=== PATIENT | female | born 1965 ===

== ENCOUNTER 2020-09-20 07:54 | Outpatient (REF) | payer OTHER, SELFPAY ==
[2020-09-20 09:37] LABS: Alanine Aminotransferase 31 U/L (0-31); Albumin Level 4.2 g/dL (3.5-5.0); Alkaline Phosphatase 82 U/L (39-117); Anion Gap 11 (12-20); Aspartate Amino Transferase 26 U/L (5-31); Bilirubin Total 0.9 mg/dL (0.0-1.0); Blood Urea Nitrogen 16 mg/dL (9-16); Calcium 9.3 mg/dL (8.4-10.2); Carbon Dioxide 26 mmol/L (22-29); Chloride 107 mmol/L (96-108); Cholesterol 262 mg/dL; Estimated Glomerular Filt Rate > 60; Glucose Fasting 100 mg/dL (60-99); HDL Cholesterol 46 mg/dL; LDL Cholesterol Calculated 156 mg/dl; Potassium 4.1 mmol/L (3.3-5.1); Sodium 140 mmol/L (135-145); Total Protein 6.9 g/dL (6.5-8.0); Triglycerides 301 mg/dL
[2020-09-27 12:22] LABS: Vitamin D 25-OH, D2 <4 ng/mL; Vitamin D 25-OH, D3 35 ng/mL; Vitamin D 25-OH, Total 35 ng/mL (30-100)
== END 2020-09-20 07:55 | disposition home or self-care (01) ==
LOC: HO.LAB 07:54
PROVIDERS: PCP Internal Medicine; Visit Provider Internal Medicine
DX: I10 Essential (primary) hypertension (principal); E78.5 Hyperlipidemia, unspecified; E55.9 Vitamin D deficiency, unspecified
CPT/HCPCS: 36415; 80053; 80061; 82306

== ENCOUNTER 2021-04-11 07:28 | Outpatient (REF) | payer OTHER, SELFPAY ==
--- NOTE | ~2021-04-11 | MM_ITS ---
EXAMINATION: MM DIAGNOSTIC DIGITAL BREAST TOMOSYNTHESIS, BILATERAL US DIAGNOSTIC ULTRASOUND BREAST, RIGHT CLINICAL INFORMATION: Tender palpable fullness posterior lower inner right breast with associated erythema. No known family history breast cancer. The lifetime risk of breast cancer based on the Tyrer-Cuzick Model is 9%. COMPARISON: Mammography: 12/03/2012 TECHNIQUE: Digital breast tomosynthesis is performed in both the craniocaudal and mediolateral oblique views along with computer-aided detection (CAD). Synthesized 2D images are generated from the tomosynthesis. Additional left MLO view is provided. Ultrasound right breast is targeted to the area of clinical concern posterior inferior medial breast. Patient is able to point to the area of concern at time of imaging. Grayscale imaging and color Doppler are performed without and with harmonics. FINDINGS: There are scattered areas of fibroglandular density (ACR BI-RADS breast composition Category b). Right breast shows no interval mass or architectural abnormality. There is no coarsening of the Kirby's ligaments. Scattered background fibroglandular densities are stable. Calcified nodule mid upper inner right breast noted on remote prior exam 2012 is no longer demonstrated. The axilla is unremarkable. Left breast shows stable intramammary nodes mid and posterior upper outer quadrant. There is no interval mass or architectural abnormality or abnormal calcifications. The axilla is unremarkable. Skin contours are smooth. Ultrasound demonstrates focal irregular hypoechoic lesion in the deep dermis measuring approximately 0.6 x 0.5 x 0.3 cm. There is no subdermal extension. No edema tracking in soft tissue planes. Mild hyperemia areas noted around the intradermal lesion consistent with inflammation. Results are discussed with the patient at time of visit, using an supervisor kennel. Patient should follow-up with her primary care doctor for further management. This exam may serve as baseline for follow-up ultrasound as needed. If clinically indicated, surgical consult may be considered. Results called to office ([facility]) for Dr. Carlos Sheets on 04/11/2021. MM/MM tomosynthesis diagnostic BI IMPRESSION: 1. Right: Intradermal lesion posterior inferior medial breast under 1 cm, likely intradermal abscess or sebaceous cyst with inflammation. 2. Left: No mammographic evidence of malignancy. ASSESSMENT: BI-RADS 3: Probably Benign RECOMMENDATION: 1. Clinical follow up recommended. Patient to call PCP office for further instructions. 2. Follow-up targeted ultrasound or surgical consult if clinically warranted. 3. Otherwise, routine annual screening mammography. This patient's information was entered into a reminder system with a target due date for their next mammogram.
== END 2021-04-11 07:29 | disposition home or self-care (01) ==
LOC: HO.MAMMO 07:28
PROVIDERS: PCP Internal Medicine; Visit Provider Internal Medicine
DX: N63.14 Unspecified lump in the right breast, lower inner quadrant (principal)
CPT/HCPCS: 76642; 77062; 77066

== ENCOUNTER → 2021-05-08 08:18 | Outpatient (BNVA) | payer OTHER, SELFPAY | PROVIDERS: PCP Internal Medicine; Referring Provider Internal Medicine; Visit Provider Surgery | DX: N63.10 Unspecified lump in the right breast, unspecified quadrant (principal) | CPT/HCPCS: 99202 ==

== ENCOUNTER 2021-07-21 07:26 | Outpatient (REF) | payer OTHER, SELFPAY ==
[2021-07-21 07:56] LABS: MANUAL DIFF FLAG NO
[2021-07-21 08:16] LABS: Basophils Percent Auto 0.4 % (0-2); Eosinophils Absolute Auto 0.3 X10*3/uL (0.0-0.4); Eosinophils Percent Auto 3.6 % (0-4); Hematocrit 41.6 % (37.0-47.0); Hemoglobin 13.3 g/dl (12.0-16.0); Imm Gran Abs Auto 0.02 X10*3/uL (0.00-0.03); Imm Gran Pct Auto 0.3 % (0.0-0.4); Lymphocytes Absolute Auto 2.5 X10*3/uL (1.2-4.9); Mean Corpuscular Hemoglobin 27.7 pg (27.0-33.0); Mean Corpuscular Volume 86.5 fL (80.0-98.0); Mean Platelet Volume 10.2 fL (9.4-12.3); Monocytes Absolute Auto 0.5 X10*3/uL (0.1-1.2); Neutrophils Percent Auto 54.7 % (45-73); Platelet Count 210 X10*3/uL (160-400); Red Blood Count 4.81 X10*6/uL (4.20-5.50); Red Cell Distribution Width 13.2 % (11.0-16.0); White Blood Count 7.3 X10*3/uL (4.8-10.8)
[2021-07-21 08:55] LABS: Alanine Aminotransferase 33 U/L (0-31); Albumin Level 4.3 g/dL (3.5-5.0); Alkaline Phosphatase 75 U/L (39-117); Anion Gap 13 (12-20); Aspartate Amino Transferase 34 U/L (5-31); Bilirubin Total 1.1 mg/dL (0.0-1.0); Blood Urea Nitrogen 15 mg/dL (9-16); Calcium 9.7 mg/dL (8.4-10.2); Carbon Dioxide 30 mmol/L (22-29); Chloride 103 mmol/L (96-108); Cholesterol 231 mg/dL; Estimated Glomerular Filt Rate > 60; Glucose Fasting 97 mg/dL (60-99); HDL Cholesterol 46 mg/dL; LDL Cholesterol Calculated 132 mg/dl; Potassium 4.6 mmol/L (3.3-5.1); Sodium 141 mmol/L (135-145); Triglycerides 265 mg/dL
[2021-07-26 19:21] LABS: Vitamin D 25-OH, D2 <4 ng/mL; Vitamin D 25-OH, D3 37 ng/mL; Vitamin D 25-OH, Total 37 ng/mL (30-100)
== END 2021-07-21 07:27 | disposition home or self-care (01) ==
LOC: HO.LAB 07:26
PROVIDERS: PCP Internal Medicine; Visit Provider Internal Medicine
DX: E78.00 Pure hypercholesterolemia, unspecified (principal); E78.5 Hyperlipidemia, unspecified; E55.9 Vitamin D deficiency, unspecified; I10 Essential (primary) hypertension; K59.01 Slow transit constipation
CPT/HCPCS: 36415; 80053; 80061; 82306; 85025

== ENCOUNTER 2022-05-18 15:49 | Outpatient (REF) | payer OTHER, SELFPAY ==
--- NOTE | ~2022-05-18 | MM_ITS ---
EXAMINATION: MM SCREENING DIGITAL BREAST TOMOSYNTHESIS, BILATERAL CLINICAL INFORMATION: Screening. Asymptomatic. The lifetime risk of breast cancer based on the Tyrer-Cuzick Model is 7%. COMPARISON: Mammography: 04/11/2021, 12/03/2012; right breast ultrasound 04/11/2021. TECHNIQUE: Digital breast tomosynthesis is performed in both the craniocaudal and mediolateral oblique views along with computer-aided detection (CAD). Synthesized 2D images are generated from the tomosynthesis. Additional left CC and bilateral MLO views are provided. FINDINGS: There are scattered areas of fibroglandular density (ACR BI-RADS breast composition Category b). There are no significant masses, abnormal calcifications, or other abnormalities. There are 2 incidental intramammary nodes again seen mid and posterior upper outer left breast. The axilla and skin contours are unremarkable. No skin thickening or coarsening of the Kirby's ligaments. MM/MM tomosynthesis screening BI IMPRESSION: No mammographic evidence of malignancy. ASSESSMENT: BI-RADS 2: Benign RECOMMENDATION: Routine annual mammography screening. This patient's information was entered into a reminder system with a target due date for their next mammogram.
== END 2022-05-18 15:50 | disposition home or self-care (01) ==
LOC: HO.MAMMO 15:49
PROVIDERS: PCP Internal Medicine; Visit Provider Nurse Practitioner Family
DX: Z12.31 Encounter for screening mammogram for malignant neoplasm of breast (principal)
CPT/HCPCS: 77063; 77067

== ENCOUNTER → 2022-07-04 08:01 | Outpatient (REF) | payer OTHER, SELFPAY ==
--- NOTE | 2022-07-04 08:07 | ECG_ITS ---
Test Reason : preproc Blood Pressure : / mmHG Vent. Rate : 057 BPM Atrial Rate : 057 BPM P-R Int : 176 ms QRS Dur : 098 ms QT Int : 432 ms P-R-T Axes : 005 -06 040 degrees QTc Int : 420 ms Sinus bradycardia Otherwise normal ECG No significant changes when compared with the previous EKG of 07 august 2010. Referred By: Malika Sheets Electronically Signed By:STEFANI HARRINGTON
[2022-07-04 08:14] LABS: MANUAL DIFF FLAG NO
[2022-07-04 08:22] LABS: Basophils Percent Auto 0.5 % (0-2); Eosinophils Absolute Auto 0.1 X10*3/uL (0.0-0.4); Eosinophils Percent Auto 1.9 % (0-4); Hematocrit 44.2 % (37.0-47.0); Hemoglobin 14.3 g/dl (12.0-16.0); Imm Gran Abs Auto 0.02 X10*3/uL (0.00-0.03); Imm Gran Pct Auto 0.3 % (0.0-0.4); Lymphocytes Absolute Auto 2.4 X10*3/uL (1.2-4.9); Lymphocytes Percent Auto 38.8 % (20-40); Mean Corpuscular HGB Conc 32.4 g/dl (31.0-35.0); Mean Corpuscular Hemoglobin 27.7 pg (27.0-33.0); Mean Corpuscular Volume 85.5 fL (80.0-98.0); Mean Platelet Volume 9.7 fL (9.4-12.3); Monocytes Absolute Auto 0.4 X10*3/uL (0.1-1.2); Monocytes Percent Auto 6.8 % (2-11); Neutrophils Absolute Auto 3.2 x10*3/uL (2.0-8.3); Neutrophils Percent Auto 51.7 % (45-73); Platelet Count 249 X10*3/uL (160-400); Red Blood Count 5.17 X10*6/uL (4.20-5.50); Red Cell Distribution Width 13.2 % (11.0-16.0); White Blood Count 6.2 X10*3/uL (4.8-10.8)
[2022-07-04 08:52] LABS: Alanine Aminotransferase 13 U/L (0-31); Albumin Level 4.4 g/dL (3.5-5.0); Alkaline Phosphatase 62 U/L (39-117); Anion Gap 13 (12-20); Aspartate Amino Transferase 17 U/L (5-31); Bilirubin Total 0.9 mg/dL (0.0-1.0); Blood Urea Nitrogen 12 mg/dL (9-16); Calcium 9.7 mg/dL (8.4-10.2); Carbon Dioxide 26 mmol/L (22-29); Chloride 107 mmol/L (96-108); Cholesterol 276 mg/dL; Estimated Glomerular Filt Rate > 60; Glucose Fasting 92 mg/dL (60-99); HDL Cholesterol 48 mg/dL; LDL Cholesterol Calculated 201 mg/dl; Potassium 4.1 mmol/L (3.3-5.1); Sodium 142 mmol/L (135-145); Total Protein 6.9 g/dL (6.5-8.0); Triglycerides 135 mg/dL
[2022-07-04 09:20] LABS: Folate 12.6 ng/mL (> or = 4.0); Vitamin B12 482 pg/mL (200-900); Vitamin D 25-OH Total 40.8 ng/mL (>30)
== END ==
LOC: HO.CARD 08:01
PROVIDERS: PCP Internal Medicine; Visit Provider Internal Medicine
DX: Z01.818 Encounter for other preprocedural examination (principal); E53.8 Deficiency of other specified B group vitamins; E55.9 Vitamin D deficiency, unspecified; E78.5 Hyperlipidemia, unspecified; R41.89 Other symptoms and signs involving cognitive functions and awareness; I10 Essential (primary) hypertension
CPT/HCPCS: 36415; 80053; 80061; 82306; 82607; 82746; 85025; 93005

== ENCOUNTER 2022-07-16 06:36 | Day surgery (SDC) | payer OTHER, SELFPAY ==
[2022-07-10 15:24] VITALS: BMI 34.7
--- NOTE | 2022-07-12 13:12 | MHC.SHP ---
Pre-Procedural Eval Section A Date of Service: 07/12/22 The patient is an INPATIENT: No Changes since office visit: No Cold of Flu in the past 2 weeks, No New Medical Problems, No Changes in Medication and No Patient answered all questions The History & Physical has been completed within 30 days and I have reviewed it.: Yes Section B Chief Complaint: Age-related nuclear cataract, right eye Allergies: Allergies Allergy/AdvReac Type Severity Reaction Status Date / Time Penicillins [PENICILLINS] Allergy Intermediate rash Verified 07/04/22 07:43 Plan Diagnosis/Plan: Unchanged I have reviewed the history and physical and performed a pertinent physical examination on my patient. No changes have occurred unless specified. Time Spent With Patient Time: Total time managing care of this patient today ____ minutes.
--- NOTE | 2022-07-13 10:48 | HO.ANESPROP2 ---
Documented by User: Marisela Cordoba NP 07/13/22 10:49 HPI - Anesthesia Eval Consult details Narrative: 56yo F for Right Cataract Extraction IOL Insertion PCP cleared No previous cataract on record [facility] Active Problems Active Problems: All Active Problems (Updated 07/04/22 @ 07:52 by Malika Sheets MD) Pre-op exam (Acute) Cognitive impairment (Acute) Obesity (BMI 30-39.9) (Acute) Adult general medical exam (Acute) Screening for breast cancer (Acute) Cervical cancer screening (Acute) Screening for colon cancer (Acute) Lump of right breast (Acute) Moderate recurrent major depression (Acute) Vertigo (Acute) Insomnia (Acute) GERD (gastroesophageal reflux disease) (Acute) Constipation by delayed colonic transit (Acute) Moderate asthma (Acute) Pure hypercholesterolemia (Acute) Essential hypertension (Acute) Past Medical History Medical History Constipation by delayed colonic transit Essential hypertension GERD (gastroesophageal reflux disease) Insomnia Moderate asthma Moderate recurrent major depression Pure hypercholesterolemia Vertigo Family History Family History Mother Leukemia FH: mental illness Family/Other CAD (coronary artery disease) Maternal Aunt Breast cancer Surgical History Surgical History History of arthroscopy of right knee History of carpal tunnel release History of tubal ligation S/P myomectomy Social History Social History Housing: Apartment Are you a primary managed care analyst to a significant other at home: No Do you presently have visiting nurse or other home services: No Alcohol intake: former Patient Tobacco Use Status: Former Tobacco user Quit Date: yrs ago Tobacco use type: Cigarette e-Cigarette/Vaping Use: Never Used Second Hand Smoke Exposure: No Use of substances other than those prescribed or required for medical reasons: No Have you been hit, kicked, punched, or otherwise hurt by someone within the past year? If so, by whom?: No Are you DNR?: No Advance Directives: No Advance Directives Information Provided: Yes (brochure mailed) Advance Directives on File: No Recently lost weight without trying: No Eating poorly because of decreased appetite: Yes Nutrition Risks: No Nutritional Risk Poor oral hygiene: No service: No Current occupational status: unemployed Cognitive needs: No Hearing needs: No Vision needs: Yes (Glasses) Meds Allergies Allergy/AdvReac Type Severity Reaction Status Date / Time Penicillins [PENICILLINS] Allergy Intermediate rash Verified 07/04/22 07:43 Home Medications Medication Instructions Recorded Confirmed Last Taken Type benzoyl peroxide 8 % topical 1 ea topical DAILY 05/10/20 07/10/22 Unknown History cleanser prazosin 2 mg capsule 2 mg PO BEDTIME 05/10/20 07/10/22 Unknown History timolol maleate 0.5 % eye drops 1 drp ophthalmic (eye) DAILY 04/24/22 07/10/22 Unknown History Exam Exam Date and Time: July 13, 2022 1048 Height,Weight and Vital Signs: Height 5 ft Weight 80.739 kg Narrative Narrative: EKG 06/2022 Vent. Rate : 057 BPM ? ? Atrial Rate : 057 BPM ?? P-R Int : 176 ms? QRS Dur : 098 ms ? ? QT Int : 432 ms ? ? ? P-R-T Axes : 005 -06 040 degrees ?? QTc Int : 420 ms ? Sinus bradycardia Otherwise normal ECG No significant changes when compared with the previous EKG? of 07 august 2010.? Assessment and Plan Assessment Anesthesia Assessment: Chart Reviewed Documented by User: Gabbie Ramos MD 07/16/22 08:36 [facility] Active Problems Active Problems: All Active Problems (Updated 07/04/22 @ 07:52 by Malika Sheets MD) Pre-op exam (Acute) Cognitive impairment (Acute) Obesity (BMI 30-39.9) (Acute) Adult general medical exam (Acute) Screening for breast cancer (Acute) Cervical cancer screening (Acute) Screening for colon cancer (Acute) Lump of right breast (Acute) Moderate recurrent major depression (Acute) Vertigo (Acute) Insomnia (Acute) GERD (gastroesophageal reflux disease) (Acute) Constipation by delayed colonic transit (Acute) Moderate asthma (Acute). Controlled. Uses inhalers everyday Pure hypercholesterolemia (Acute) Essential hypertension (Acute) ANUPAMA. Does not use her CPAP machine- does not work Past Medical History Medical History Constipation by delayed colonic transit Essential hypertension GERD (gastroesophageal reflux disease) Insomnia Moderate asthma Moderate recurrent major depression Pure hypercholesterolemia Vertigo Family History Family History Mother Leukemia FH: mental illness Family/Other CAD (coronary artery disease) Maternal Aunt Breast cancer Family history of problems with anesthesia: No Surgical History Surgical History History of arthroscopy of right knee History of carpal tunnel release History of tubal ligation S/P myomectomy History of Problems with Anesthesia: No Social History Social History Housing: Apartment Are you a primary managed care analyst to a significant other at home: No Do you presently have visiting nurse or other home services: No Alcohol intake: former Patient Tobacco Use Status: Former Tobacco user Quit Date: yrs ago Tobacco use type: Cigarette e-Cigarette/Vaping Use: Never Used Second Hand Smoke Exposure: No Use of substances other than those prescribed or required for medical reasons: No Have you been hit, kicked, punched, or otherwise hurt by someone within the past year? If so, by whom?: No Are you DNR?: No Advance Directives: No Advance Directives Information Provided: Yes (brochure mailed) Advance Directives on File: No Recently lost weight without trying: No Eating poorly because of decreased appetite: Yes Nutrition Risks: No Nutritional Risk Poor oral hygiene: No service: No Current occupational status: unemployed Cognitive needs: No Hearing needs: No Vision needs: Yes (Glasses) Meds Allergies Allergy/AdvReac Type Severity Reaction Status Date / Time Penicillins [PENICILLINS] Allergy Intermediate rash Verified 07/04/22 07:43 Home Medications Medication Instructions Recorded Confirmed Last Taken Type benzoyl peroxide 8 % topical 1 ea topical DAILY 05/10/20 07/10/22 Unknown History cleanser prazosin 2 mg capsule 2 mg PO BEDTIME 05/10/20 07/10/22 Unknown History timolol maleate 0.5 % eye drops 1 drp ophthalmic (eye) DAILY 04/24/22 07/10/22 Unknown History Exam Height,Weight and Vital Signs: Height 5 ft Weight 80.739 kg Vital Signs Temp Pulse Resp BP Pulse Ox O2 Del Method 07/16/22 06:50 97.7 F 69 18 153/91 H 96 Room Air Airway Mallampati Class: II TM Dist: >3cm Neck ROM: Full Loose/Missing/Broken Teeth: No Heart: RRR Lungs: CTAB. No wheezes Assessment and Plan Assessment Anesthesia Assessment: Anesthesia Plan Discussed Final Anesthetic Review Family History of Problems with Anesthesia: No History of Problems with Anesthesia: No NPO: Yes ASA Class: III Final Preanesthetic Review: No Changes in Pt Med Stat, Meds/Allgs Chart Reviewed, Consent Obtained/Reviewed and Anes Risks/Benef Reviewed Patient Risk: Intermediate Procedure Risk: Low Assessment/Block/Sedation in SS: Assess/Block/Sedation-SS Anesthetic Plan Anesthetic Plan: MAC: Disposition: Standard PACU
[2022-07-16 06:50] VITALS: BP 153/91; PULSE 69; RESP 18; TEMP 36.5; O2SAT 96
[2022-07-16 06:56] VITALS: BMI 36.1
[2022-07-16] MEDS: Tetracaine HCl/PF 0.5% Oph Sol 4 ML DROPS 1 DROP EYE-RIGHT ×2 (07:04)
[2022-07-16] MEDS: Phenylephrine HCL 2.5% Oph SoL 2 ML BOTTLE 1 DROP EYE-RIGHT ×3 (07:05→07:11)
[2022-07-16] MEDS: Tropicamide 1 % Ophth Sol 3 ML BTL 1 DROP EYE-RIGHT ×3 (07:06→07:12)
[2022-07-16] MEDS: Ketorolac Tromethamine 0.5% Op 5 ML DROPS 1 DROP EYE-RIGHT ×3 (07:06→07:12)
[2022-07-16] MEDS: Cyclopentolate 1 % Ophth Sol 2 ML DRPBTL 1 DROP EYE-RIGHT ×3 (07:07→07:13)
--- NOTE | 2022-07-16 09:13 | HO.PNOPHT ---
Ophthalmology Procedure Procedure Date of Service: 07/16/22 Ophthalmology Viscoelastic: Verito Hopet Dual Pack Pro Ophthalmology Lenses: TECVANESSA [id number] (16) Procedure Notes: PREOPERATIVE DIAGNOSIS: Decreased visual acuity right eye secondary to cataract POSTOPERATIVE DIAGNOSIS: Same PROCEDURE: Right cataract extraction with intraocular lens insertion SURGEON: Eduardo Jolly M.D. ANESTHESIA: Topical/MAC ESTIMATED BLOOD LOSS: None COMPLICATIONS: None After obtaining informed consent, the patient was brought to the operating room suite and placed in the supine position. After adequate sedation per anesthesia, topical drops of Tetracaine were given to the right eye. The eye was then prepped and draped in the usual sterile fashion. The operating room microscope was then positioned over the operative eye and a lid speculum placed. A paracentesis was created. Viscoelastic was then instilled into the anterior chamber. A three plane incision was then created temporally, utilizing a 2.85 mm keratome. Capsulotomy forceps were then utilized to create a circular tear capsulotomy. Hydrodissection and hydrodelineation were carried out until adequate mobilization of the nucleus occurred. Phacoemulsification was then utilized to remove the dense central nucleus followed by removal of the cortical material utilizing the automated aspiration irrigation unit. Viscoelastic was instilled into the posterior capsular bag followed by placement of a posterior chamber intraocular lens without difficulty. The residual Viscoelastic was then removed utilizing the automated IA machine. The wound was checked and found to be watertight. The patient tolerated the procedure well and the lid speculum was removed. Intracameral injection of Vigamox 0.1 mL followed by a subtenon injection of Kenalog-40 0.2 mL were administered. The patient will be seen in the a.m.
[2022-07-16 09:52] VITALS: BP 150/91; PULSE 58; RESP 16; TEMP 36.2; O2SAT 100
== END 2022-07-16 10:15 | disposition home or self-care (01) ==
PROVIDERS: PCP Internal Medicine; Visit Provider Ophthalmology
PROC: (CPT 66985; principal; 2022-07-16 10:00)
DX: H25.11 Age-related nuclear cataract, right eye (principal); H40.1234 Low-tension glaucoma, bilateral, indeterminate stage; H52.13 Myopia, bilateral; I10 Essential (primary) hypertension; E78.00 Pure hypercholesterolemia, unspecified; J45.909 Unspecified asthma, uncomplicated; K21.9 Gastro-esophageal reflux disease without esophagitis; F33.1 Major depressive disorder, recurrent, moderate; Z79.51 Long term (current) use of inhaled steroids; Z79.899 Other long term (current) drug therapy; Z79.1 Long term (current) use of non-steroidal anti-inflammatories (NSAID); Z88.0 Allergy status to penicillin
CPT/HCPCS: 66984; J2250; J3010; J3301; V2632

== ENCOUNTER → 2022-07-23 15:30 | Outpatient (BNVA) | payer OTHER, SELFPAY | PROVIDERS: PCP Internal Medicine; Visit Provider Internal Medicine | DX: Z01.818 Encounter for other preprocedural examination (principal) | CPT/HCPCS: 99202 ==

== ENCOUNTER 2022-07-30 06:05 | Day surgery (SDC) | payer OTHER, SELFPAY ==
[2022-07-10 15:29] VITALS: BMI 34.7
--- NOTE | 2022-07-27 08:02 | MHC.SHP ---
Pre-Procedural Eval Section A Date of Service: 07/27/22 The patient is an INPATIENT: No Changes since office visit: No Cold of Flu in the past 2 weeks, No New Medical Problems, No Changes in Medication and No Patient answered all questions The History & Physical has been completed within 30 days and I have reviewed it.: Yes Section B Chief Complaint: Age-related nuclear cataract, left eye Allergies: Allergies Allergy/AdvReac Type Severity Reaction Status Date / Time Penicillins [PENICILLINS] Allergy Intermediate rash Verified 07/23/22 15:54 Plan Diagnosis/Plan: Unchanged I have reviewed the history and physical and performed a pertinent physical examination on my patient. No changes have occurred unless specified. Time Spent With Patient Time: Total time managing care of this patient today ____ minutes.
--- NOTE | 2022-07-27 09:29 | HO.ANESPROP2 ---
Documented by User: Marisela Cordoba NP 07/27/22 09:30 HPI - Anesthesia Eval Consult details Narrative: 56yo F for Left Cataract Extraction IOL Insertion PCP cleared Right eye 07/16/22 with TIVA: Fent 25, Midaz 2 PMFSH Active Problems Active Problems: All Active Problems (Updated 07/24/22 @ 10:37 by Pema Jay, RN) Lump of right breast (Acute) Screening for colon cancer (Acute) Cervical cancer screening (Acute) Screening for breast cancer (Acute) Adult general medical exam (Acute) Obesity (BMI 30-39.9) (Acute) Cognitive impairment (Acute) Pre-op exam (Acute) Moderate recurrent major depression (Acute) Vertigo (Acute) Insomnia (Acute) GERD (gastroesophageal reflux disease) (Acute) Constipation by delayed colonic transit (Acute) Moderate asthma (Acute) Pure hypercholesterolemia (Acute) Essential hypertension (Acute) Past Medical History Medical History Cataract Constipation by delayed colonic transit Essential hypertension GERD (gastroesophageal reflux disease) Insomnia Moderate asthma Moderate recurrent major depression Pure hypercholesterolemia Vertigo Family History Family History Mother Leukemia FH: mental illness Family/Other CAD (coronary artery disease) Maternal Aunt Breast cancer Family history of problems with anesthesia: No Surgical History Surgical History History of arthroscopy of right knee History of carpal tunnel release History of right cataract extraction History of tubal ligation S/P myomectomy History of Problems with Anesthesia: No Social History Social History Housing: Apartment Are you a primary medicare coordinator to a significant other at home: No Do you presently have visiting nurse or other home services: No Alcohol intake: former Patient Tobacco Use Status: Former Tobacco user Quit Date: yrs ago Tobacco use type: Cigarette e-Cigarette/Vaping Use: Never Used Second Hand Smoke Exposure: No Use of substances other than those prescribed or required for medical reasons: No Have you been hit, kicked, punched, or otherwise hurt by someone within the past year? If so, by whom?: No Are you DNR?: No Advance Directives: No Advance Directives Information Provided: Yes (brochure mailed) Advance Directives on File: No Recently lost weight without trying: No Eating poorly because of decreased appetite: No Nutrition Risks: No Nutritional Risk Poor oral hygiene: No service: No Current occupational status: unemployed Cognitive needs: No Hearing needs: No Vision needs: Yes (Glasses) Meds Allergies Allergy/AdvReac Type Severity Reaction Status Date / Time Penicillins [PENICILLINS] Allergy Intermediate rash Verified 07/30/22 06:12 Home Medications Medication Instructions Recorded Confirmed Last Taken Type timolol maleate 0.5 % eye drops 1 drp ophthalmic (eye) DAILY 04/24/22 07/10/22 Unknown History pravastatin 40 mg tablet 40 mg PO DAILY 07/23/22 Unknown History trazodone 50 mg tablet mg PO 07/23/22 Unknown History Exam Exam Date and Time: July 27, 2022 0929 Height,Weight and Vital Signs: Height 5 ft Weight 80.739 kg Assessment and Plan Assessment Anesthesia Assessment: Chart Reviewed Final Anesthetic Review Family History of Problems with Anesthesia: No History of Problems with Anesthesia: No Documented by User: Aris De Leon MD 07/30/22 14:24 HPI - Anesthesia Eval Consult details Narrative: 56yo F for Left Cataract Extraction IOL Insertion ANUPAMA PCP cleared Right eye 07/16/22 with TIVA: Fent 25, Midaz 2 PMFSH Past Medical History Medical History Cataract Constipation by delayed colonic transit Essential hypertension GERD (gastroesophageal reflux disease) Insomnia Moderate asthma Moderate recurrent major depression Pure hypercholesterolemia Vertigo Family History Family History Mother Leukemia FH: mental illness Family/Other CAD (coronary artery disease) Maternal Aunt Breast cancer Surgical History Surgical History History of arthroscopy of right knee History of carpal tunnel release History of right cataract extraction History of tubal ligation S/P myomectomy Social History Social History Housing: Apartment Are you a primary medicare coordinator to a significant other at home: No Do you presently have visiting nurse or other home services: No Alcohol intake: former Patient Tobacco Use Status: Former Tobacco user Quit Date: yrs ago Tobacco use type: Cigarette e-Cigarette/Vaping Use: Never Used Second Hand Smoke Exposure: No Use of substances other than those prescribed or required for medical reasons: No Have you been hit, kicked, punched, or otherwise hurt by someone within the past year? If so, by whom?: No Are you DNR?: No Advance Directives: No Advance Directives Information Provided: Yes (brochure mailed) Advance Directives on File: No Recently lost weight without trying: No Eating poorly because of decreased appetite: No Nutrition Risks: No Nutritional Risk Poor oral hygiene: No service: No Current occupational status: unemployed Cognitive needs: No Hearing needs: No Vision needs: Yes (Glasses) Meds Allergies Allergy/AdvReac Type Severity Reaction Status Date / Time Penicillins [PENICILLINS] Allergy Intermediate rash Verified 07/30/22 06:12 Home Medications Medication Instructions Recorded Confirmed Last Taken Type timolol maleate 0.5 % eye drops 1 drp ophthalmic (eye) DAILY 04/24/22 07/10/22 Unknown History pravastatin 40 mg tablet 40 mg PO DAILY 07/23/22 Unknown History trazodone 50 mg tablet mg PO 07/23/22 Unknown History Exam Airway Mallampati Class: III TM Dist: >3cm Neck ROM: Full Loose/Missing/Broken Teeth: Yes (chipped front upper teeth ) Heart: S1,S2 Lungs: b/l breath sounds Assessment and Plan Assessment Anesthesia Assessment: Anesthesia Plan Discussed Final Anesthetic Review NPO: Yes ASA Class: III Final Preanesthetic Review: Meds/Allgs Chart Reviewed, Consent Obtained/Reviewed and Anes Risks/Benef Reviewed Patient Risk: Intermediate Procedure Risk: Intermediate Anesthetic Plan Anesthetic Plan: MAC: Disposition: Standard PACU
[2022-07-30 06:21] VITALS: BP 131/70; PULSE 66; RESP 16; TEMP 36.1; O2SAT 98
[2022-07-30] MEDS: Tetracaine HCl/PF 0.5% Oph Sol 4 ML DROPS 1 DROP EYE-LEFT (06:25)
[2022-07-30] MEDS: Lactated Ringers 500 ML 50 ML IV (06:27)
[2022-07-30] MEDS: Cyclopentolate 1 % Ophth Sol 2 ML DRPBTL 1 DROP EYE-LEFT ×3 (06:27→06:37)
[2022-07-30] MEDS: Tropicamide 1 % Ophth Sol 3 ML BTL 1 DROP EYE-LEFT ×3 (06:28→06:39)
[2022-07-30] MEDS: Ketorolac Tromethamine 0.5% Op 5 ML DROPS 1 DROP EYE-LEFT ×3 (06:29→06:40)
[2022-07-30] MEDS: Phenylephrine HCL 2.5% Oph SoL 2 ML BOTTLE 1 DROP EYE-LEFT ×3 (06:30→06:41)
--- NOTE | 2022-07-30 07:32 | HO.PNOPHT ---
Ophthalmology Procedure Procedure Date of Service: 07/30/22 Ophthalmology Viscoelastic: Healon Duet Dual Pack Pro Ophthalmology Lenses: TECNIS [id number] (15.5) Procedure Notes: PREOPERATIVE DIAGNOSIS: Decreased visual acuity left eye secondary to cataract POSTOPERATIVE DIAGNOSIS: Same PROCEDURE: Left cataract extraction with intraocular lens insertion SURGEON: Eduardo Jolly M.D. ANESTHESIA: Topical/MAC ESTIMATED BLOOD LOSS: None COMPLICATIONS: None After obtaining informed consent, the patient was brought to the operation room suite and placed in the supine position. After adequate sedation per anesthesia, topical drops of Tetracaine were given to the left eye. The eye was then prepped and draped in the usual sterile fashion. The operating room microscope was then positioned over the operative eye and a lid speculum placed. A paracentesis was created. Viscoelastic was then instilled into the anterior chamber. A three plane incision was then created temporally, utilizing a 2.85 mm keratome. Capsulotomy forceps were then utilized to create a circular tear capsulotomy. Hydrodissection and hydrodelineation were carried out until adequate mobilization of the nucleus occurred. Phacoemulsification was then utilized to remove the dense central nucleus followed by removal of the cortical material utilizing the automated aspiration irrigation unit. Viscoat elastic was instilled into the posterior capsular bag followed by placement of a posterior chamber intraocular lens without difficulty. The residual Viscoat elastic was then removed utilizing the automated IA machine. The wound was check and found to be watertight. The patient tolerated the procedure well and the lid speculum was removed. Intracameral injection of Vigamox 0.1 mL followed by a subtenon injection of Kenalog-40 0.2 mL were administered. The patient will be seen in the a.m.
[2022-07-30 07:59] VITALS: BP 149/90; PULSE 58; RESP 16; TEMP 36.6; O2SAT 96
[2022-07-30 08:13] VITALS: BP 152/88; PULSE 59; RESP 16; TEMP 36.3; O2SAT 99
== END 2022-07-30 08:39 | disposition home or self-care (01) ==
PROVIDERS: PCP Internal Medicine; Visit Provider Ophthalmology
PROC: (CPT 66985; principal; 2022-07-30 07:30)
DX: H25.12 Age-related nuclear cataract, left eye (principal); H52.13 Myopia, bilateral; H40.1234 Low-tension glaucoma, bilateral, indeterminate stage; I10 Essential (primary) hypertension; E78.00 Pure hypercholesterolemia, unspecified; F33.1 Major depressive disorder, recurrent, moderate; K21.9 Gastro-esophageal reflux disease without esophagitis; R42 Dizziness and giddiness; E55.9 Vitamin D deficiency, unspecified; J45.909 Unspecified asthma, uncomplicated; Z79.51 Long term (current) use of inhaled steroids; Z79.1 Long term (current) use of non-steroidal anti-inflammatories (NSAID); Z79.899 Other long term (current) drug therapy; Z88.0 Allergy status to penicillin; Z87.891 Personal history of nicotine dependence
CPT/HCPCS: 66984; J2250; J3010; J3301; V2632

== ENCOUNTER 2022-10-25 15:28 | Outpatient (REF) | payer OTHER, SELFPAY ==
[2022-10-30 07:43] LABS: HPV mRNA E6/E7 rflx Not Detected (Not Detected)
== END 2022-10-25 15:29 | disposition home or self-care (01) ==
LOC: HO.LNP 15:28
PROVIDERS: PCP Internal Medicine; Visit Provider Obstetrics & Gynecology
DX: Z01.419 Encounter for gynecological examination (general) (routine) without abnormal findings (principal); Z11.51 Encounter for screening for human papillomavirus (HPV)
CPT/HCPCS: 87624; 88142

== ENCOUNTER 2022-11-09 15:00 | Outpatient (RCR) | payer OTHER, SELFPAY ==
--- NOTE | 2022-10-10 12:28 | MHC.PT.EP ---
[facility] [place] [facility] [place] [facility] [place] [facility] [address] Ousmane Mccartney [address] [phone] F: [phone] F: [phone] F: [phone] F: [phone] Physical Therapy Plan of Care Date of Evaluation: Date of Surgery: N/A Diagnosis: Pain in right shoulder, pain in left shoulder bilateral shoulder pain Assessment: Pt is a pleasant 56yo M who presents to PT with current impairments in pain, decreased shoulder ROM, decreased shoulder strength, soft tissue restrictions and impaired posture. She is limited functionally by lifting, moving her shoulders, getting up from chair, getting in/out of bed, reaching behind her back, and overhead ADLs. She is a good candidate for skilled PT in order to address current impairments to facilitate return to PLOF. She is recommended to be seen 2x/week for 4 weeks and will be reassessed at that time. Frequency and Duration: The patient will be seen 2x/week for 4 weeks Short Term Goals: Pt will be I with HEP to promote self management of symptoms Pt will increase B shoulder flexion by at least 10 degrees B Stick Puller Goals: Pt will achieve full flexion ROM B to assist with reaching Pt will perform overhead ADLs with minimal to no compensation Pt will perform sit<>stand and supine<>sit transitions with minimal to no discomfort throughout B shoulders Treatment Plan: Modalities to reduce pain, spasms and effusion. Manual therapy to restore motion and function. Therapeutic exercise to improve strength and flexibility. Neuromuscular re-education for posture and balance. Therapeutic activities to return to functional activities of daily living. Electronically signed by: Nae Munoz, PT, DPT Please sign and return to therapist. Thank you for your referral.
--- NOTE | 2022-12-17 10:50 | MHC.PT.DC ---
[facility] [place] [facility] [place] [facility] [place] [facility] [address] Ousmane Mccartney [address] [phone] F: [phone] F: [phone] F: [phone] F: [phone] Physical Therapy Discharge Report Diagnosis: Pain in right shoulder, pain in left shoulder bilateral shoulder pain Date of Surgery: N/A Date of Evaluation: 10/09/22 Date of Discharge: 12/17/22 Treatments to Date: 8 Cancellations to Date: 4 No Shows to Date: Discharge Status: Visit Non-compliance Discharge Summary: Pt was seen for PT from 10/09/22-11/09/22. Her last attended appointment was 11/09/22. She had 4 cancellations for her 4 last scheduled appointments. Pt is being D/C from skilled PT. Pt current level of function unknown at this time. Electronically signed by: Nea Munoz, PT, DPT Please sign and return to therapist. Thank you for your referral.
== END 2022-12-17 10:49 | disposition home or self-care (01) ==
LOC: HO.PT 15:00
PROVIDERS: PCP Internal Medicine; Visit Provider Internal Medicine
DX: M25.511 Pain in right shoulder (principal); M25.512 Pain in left shoulder
CPT/HCPCS: 97110; 97140; 97162

== ENCOUNTER 2023-01-08 15:39 | Outpatient (AMB) | payer OTHER, SELFPAY ==
--- NOTE | 2023-01-08 15:45 | MHC.PC.OV ---
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 Accompanied by: Daughter Allergies Penicillins [PENICILLINS] Allergy (Intermediate, Verified 01/08/23 16:01) rash Medication List - Last Reconciled 01/08/23 by LAILA Nelson albuterol sulfate 90 mcg/actuation 1 puff PO Q4H PRN 30 days atorvastatin 80 mg PO BEDTIME 90 days cholecalciferol (vitamin D3) 50 mcg PO DAILY 90 days cyclobenzaprine 10 mg PO TID PRN fluticasone propionate 220 mcg/actuation (Flovent HFA) 1 puff PO BID 30 days fluticasone propionate 50 mcg/actuation 1 spray intranasal DAILY gabapentin (Neurontin) 600 mg PO DAILY 90 days ibuprofen 800 mg PO Q12H PRN 30 days lisinopril 40 mg PO DAILY meclizine 12.5 mg PO TID PRN 30 days omeprazole 20 mg PO BID sennosides-docusate sodium 8.6-50 mg (Senna Plus) 1 tab-cap PO BEDTIME 90 days sertraline (Zoloft) 200 mg (2 x 100 mg) PO DAILY sucralfate 1 g PO BID 90 days timolol maleate 0.5% 1 drp ophthalmic (eye) DAILY trazodone 75 mg (1.5 x 50 mg) PO BEDTIME 30 days triamcinolone acetonide 0.025% 1 appl topical DAILY 30 days zolpidem 10 mg PO BEDTIME 30 days Tobacco use date assessed: 07/04/22 Dental Screening Dental Screen Date: 01/08/23 Did you have a dental visit in the last 12 months?: No Did you have a dental problem in the last 6 months where you did not have access to dental care?: No Was dental information given to patient?: Patient has dentist HPI Pain in Right Shoulder HPI Details Patient is a 57-year-old female presents today with right shoulder pain for the past 3 months, denies injury. Patient of Dr. Gonzalez. Medical history significant for hypertension, hypercholesterolemia, asthma, GERD among others. Patient reports that she finished physical therapy for right shoulder 1 month ago with no improvement in pain. She reports pain with range of motion. Reports taking ibuprofen, gabapentin, and cyclobenzaprine with no much improvement. Reports chronic intermittent numbness in her hands. No arm weakness. No shortness of breath or chest pain. Patient is a Syrian-speaking and her family Izaiah was helping with interpretation. [facility] Medical History Cataract Constipation by delayed colonic transit Essential hypertension GERD (gastroesophageal reflux disease) Insomnia Moderate asthma Moderate recurrent major depression Pure hypercholesterolemia Vertigo Surgical History History of arthroscopy of right knee History of carpal tunnel release History of right cataract extraction History of tubal ligation S/P myomectomy Family History Mother Leukemia FH: mental illness Family/Other CAD (coronary artery disease) Maternal Aunt Breast cancer Social History Housing: Apartment Are you a primary neonatal intensive care nurse to a significant other at home: No Do you presently have visiting nurse or other home services: No Alcohol intake: former Patient Tobacco Use Status: Former Tobacco user Quit Date: yrs ago Tobacco use type: Cigarette e-Cigarette/Vaping Use: Never Used Second Hand Smoke Exposure: No service: No Current occupational status: unemployed Cognitive needs: No Hearing needs: No Vision needs: Yes (Glasses) Female Reproductive History Menstrual Age of Menarche: 7 Questionnaire Thrive Questionnaire Date Thrive assessed: 07/04/22 KHARI-7 AMB Questionnaire KHARI-7 Date KHARI - 7 assessed: 07/04/22 Source: Developed by Drs. Gavin Gr, Annita Luis, Chapincito Suresh and colleagues, with an educational susy from [employer]. Review of Systems Const Denies body aches, Denies chills, Denies fever(s) and Denies headache(s) Eyes Denies change in vision ENT Denies dizziness, Denies otalgia, Denies headache(s), Denies nasal discharge, Denies sinus pain and Denies sore throat Card Denies chest pain, Denies edema, Denies lightheadedness and Denies dyspnea Resp Denies cough, Denies dyspnea and Denies wheezing GI Denies abdominal pain Denies dysuria Musc Reports as per HPI, Denies myalgias, Reports arthralgias, Denies joint swelling, Reports numbness and Denies tingling Skin/Breast Denies rash Neuro Denies dizziness, Denies headache(s), Reports numbness and Denies tingling Aller/Immun Denies wheezing Physical exam (Primary Care) Vital Signs: Last Vital Signs BP 126/82 01/08/23 15:46 BMI result Body Mass Index 35.3 Tobacco/Smoking Status: Tobacco use Status Tobacco use date assessed 07/04/22 01/08/23 15:50 Patient Tobacco Use Status Former Tobacco user 01/08/23 15:50 Tobacco use type Cigarette 01/08/23 15:50 e-Cigarette/Vaping Use Never Used 01/08/23 15:50 Thrive Assessment: Date of Thrive Assessment Date Thrive assessed 07/04/22 01/08/23 15:50 Const General: cooperative and no acute distress Orientation/consciousness: patient oriented x3 HENMT Head: Yes normocephalic and Yes atraumatic Mouth: oropharynx normal and moist mucous membranes Throat: Yes posterior oropharynx normal Eyes General: appearance normal, both eyes and all related structures Neck Neck: Yes normal visual inspection and Yes full ROM Resp Effort & Inspection: normal respiratory effort and able to speak in complete sentences Auscultation: clear to auscultation bilaterally, no crackles, no rales, no rhonchi and no wheezes Cardio Rate: regular rate Rhythm: regular rhythm Heart sounds: S1 normal heart sound present and S2 normal heart sound present GI Auscultation: normal bowel sounds Skin General skin exam: no rashes or lesions noted Neuro General: patient oriented x3 Gait exam (Neuro): Normal gait present Motor exam (neuro): 5/5 motor strength present throughout Extrem General: No edema Right upper extremity: shoulder/upper arm Details: normal to inspection and abnormal ROM (Pain with range of motion especially abduction); no tenderness, no swelling, no abrasions, no ecchymosis, no crepitus, no deformity and no unusual warmth Assessment and Plan Assessment & Plan (1) Right shoulder pain: Code(s): M25.511 - Pain in right shoulder Plan: Suspect musculoskeletal in origin Will obtain x-ray Patient finished physical therapy with no improvement in pain Will provide patient with lidocaine patch daily p.r.n. Orthopedics referral for an evaluation and treatment Continue cyclobenzaprine p.r.n., ibuprofen p.r.n., and gabapentin as prescribed Will notify of x-ray results Patient agreed with the plan Plan Keep appointment with PCP as scheduled or follow-up sooner as needed Orders: Orders XR shoulder RT min 2V Today M25.511 - Pain in right shoulder Referrals Orthopedics Referral M25.511 - Pain in right shoulder Medications: New lidocaine 4% (Aspercreme (lidocaine)) 1 patch topical DAILY PRN 30 ea 0RF pain M25.511 - Pain in right shoulder Coding Level of Care Code Est Pt Level 3 (36798) Diagnoses Right shoulder pain M25.511
[2023-01-08 15:46] VITALS: BP 126/82; BMI 35.3
== END 2023-01-08 16:23 | disposition home or self-care (01) ==
PROVIDERS: PCP Internal Medicine; Visit Provider Nurse Practitioner Family
DX: M25.511 Pain in right shoulder (principal)
CPT/HCPCS: 99213

== ENCOUNTER 2023-01-08 16:32 | Outpatient (REF) | payer OTHER, SELFPAY ==
--- NOTE | ~2023-01-08 | XR_ITS ---
EXAMINATION: XR SHOULDER, RIGHT CLINICAL INFORMATION: Pain in the right shoulder. COMPARISON: None available. TECHNIQUE: Four views of the right shoulder. FINDINGS: No acute fractures or subluxation. Mild degenerative osteoarthritis of the right acromioclavicular joint. No abnormal soft tissue calcifications. Included portions of the right-sided ribs and right lung are within normal limits. XR/XR shoulder RT min 2V IMPRESSION: 1. No acute fractures or subluxation. 2. Mild degenerative osteoarthritis of the right acromioclavicular joint.
== END 2023-01-08 16:33 | disposition home or self-care (01) ==
LOC: HO.XRAY 16:32
PROVIDERS: PCP Internal Medicine; Visit Provider Nurse Practitioner Family
DX: M25.511 Pain in right shoulder (principal)
CPT/HCPCS: 73030

== ENCOUNTER 2023-01-31 14:53 | Outpatient (AMB) | payer OTHER, SELFPAY ==
--- NOTE | 2023-01-31 15:06 | A.OFFVIS_ITS ---
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 Patient reports pain came on suddenly a few months ago. She attended PT for a couple of months with no relief. Her shoulder pain starts in shoulder and radiates down to her hand. Numbness and tingling in her hand. No other tx. 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 She states she has pain in his right shoulder which radiates down to her hand. She also c/o numbness and tingling in her hand. She also reports she is occasionally unable to perform overhead reaching or reaching back and she needs to hold her shoulder to get out of her bed. She had undergone physical therapy about 2 months ago which did not provide any relief. [facility] Medical History Cataract Constipation by delayed colonic transit Essential hypertension GERD (gastroesophageal reflux disease) Insomnia Moderate asthma Moderate recurrent major depression Pure hypercholesterolemia Vertigo Surgical History History of right cataract extraction S/P myomectomy History of carpal tunnel release History of arthroscopy of right knee History of tubal ligation Family History Mother Leukemia FH: mental illness Family/Other CAD (coronary artery disease) Maternal Aunt Breast cancer Social History Housing: Apartment Are you a primary director day care center to a significant other at home: No Do you presently have visiting nurse or other home services: No Alcohol intake: former Patient Tobacco Use Status: Former Tobacco user Quit Date: yrs ago Tobacco use type: Cigarette e-Cigarette/Vaping Use: Never Used Second Hand Smoke Exposure: No service: No Current occupational status: unemployed Cognitive needs: No Hearing needs: No Vision needs: Yes (Glasses) Female Reproductive History Menstrual Age of Menarche: 7 Review of Systems Const All systems reviewed & are unremarkable except as noted in HPI and below Physical Exam Vital Signs: BMI result Body Mass Index 35.3 Const General: cooperative, healthy appearing, comfortable, no acute distress, well developed and alert Orientation/consciousness: patient oriented x3 HEENT Head: Yes normal to inspection, Yes normocephalic and Yes atraumatic Eyes General: appearance normal, both eyes and all related structures Resp Effort & Inspection: normal respiratory effort and able to speak in complete sentences Cardio Rate: regular rate Peripheral pulses: Peripheral pulses 2+ throughout GI Palpation (GI): Soft to palpation Skin Lesions: no lesions Rashes: no rashes Neuro General: patient oriented x3 Extrem Other: Right shoulder normal to inspection. Tenderness over the bicipital groove and along the deltoid region of the shoulder. Forward flexion to 95, external rotation to 90, internal rotation to S1. 5/5 RTC strength. Positive Lebron and cross body abduction. NVI. Office Procedures Joint Injection/Drain Joint Injection/Drain Primary Site: right shoulder Prep: site was prepped using aseptic technique, ethochloride spray was applied and injection warnings given Injected: 80 mg of, DepoMedrol, with 8 mL of, 1% plain lidocaine and in the subcromial space Approach Used: posterolateral Procedure: The patient tolerated the procedure well and there was some relief with the local anesthesia Coding 59034 - Glenohumeral/Tronchanteric Bursa/Intraarticular Procedure code (CPT) selection complete Results Reviewed Results Reviewed: 01/31/23 15:22 Lidocaine HCl 2 % MPF [Xylocaine 2 % MPF] 5 ml .ROUTE .STK-MED ONE methylPREDNISolone acetate [DEPO-MedroL] 80 mg .ROUTE .STK-MED ONE Xrays of the right shoulder obtained on 01/08/23 show mild ac joint oa with type 2 acromion Assessment & Plan Assessment & Plan (1) Tendinitis of right rotator cuff: Code(s): M75.81 - Other shoulder lesions, right shoulder (2) Osteoarthritis of right acromioclavicular joint: Code(s): M19.011 - Primary osteoarthritis, right shoulder Plan We discussed options today which include steroid injection. They did consent to move forward with the right shoulder injection, which was tolerated well. I r ecommended rest, ice and elevation and OTC anti-inflammatories PRN for discomfort. I did encourage on her home exercises program as well. If symptoms persist or worsens over the next 6-8 weeks, patient will contact the office, otherwise follow-up as needed. Patient Instructions: Scribed for Gayle Mendoza PA-C, by Steven Mcnamara medical administrator, on 01/31/2023 at 3:00 PM EST. Gayle Laboy PA-C, have personally reviewed and agree with the information entered by the scribe. Quality Reporting (2019) Adult ([facility] 138/07/04/68) Smoking risk assessment performed?: Yes Patient Tobacco Use Status: Former Tobacco user Coding Level of Care Code New Pt Level 3 (48002) Diagnoses Tendinitis of right rotator cuff M75.81 Osteoarthritis of right acromioclavicular joint M19.011 CPT Codes Coding - Joint 7: 44752 - Glenohumeral/Tronchanteric Bursa/Intraarticular ([id number])
[2023-01-31 15:12] VITALS: BMI 35.3
== END 2023-01-31 15:54 | disposition home or self-care (01) ==
PROVIDERS: PCP Internal Medicine; Visit Provider Physician Assistant
DX: M75.81 Other shoulder lesions, right shoulder (principal); M19.011 Primary osteoarthritis, right shoulder
CPT/HCPCS: 20610; 99204

== ENCOUNTER → 2023-01-31 14:53 | Outpatient (BNVA) | payer OTHER, SELFPAY | PROVIDERS: PCP Internal Medicine; Visit Provider Physician Assistant | DX: M19.011 Primary osteoarthritis, right shoulder (principal); M75.81 Other shoulder lesions, right shoulder | CPT/HCPCS: 20610; 99202; J1040 ==

== ENCOUNTER 2023-02-05 15:46 | Outpatient (AMB) | payer OTHER, SELFPAY ==
--- NOTE | 2023-02-05 15:51 | MHC.PC.OV ---
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 Required: No Accompanied by: Self / Same As Patient Allergies Penicillins [PENICILLINS] Allergy (Intermediate, Verified 02/05/23 16:01) rash Medication List - Last Reconciled 02/05/23 by Malika Sheets MD albuterol sulfate 90 mcg/actuation 1 puff PO Q4H PRN 30 days atorvastatin 80 mg PO BEDTIME 90 days cholecalciferol (vitamin D3) 50 mcg PO DAILY 90 days cyclobenzaprine 10 mg PO TID PRN fluticasone propionate 220 mcg/actuation (Flovent HFA) 1 puff PO BID 30 days fluticasone propionate 50 mcg/actuation 1 spray intranasal DAILY gabapentin (Neurontin) 600 mg PO DAILY 90 days ibuprofen 800 mg PO Q12H PRN 30 days lidocaine 4% (Aspercreme (lidocaine)) 1 patch topical DAILY PRN lisinopril 40 mg PO DAILY meclizine 12.5 mg PO TID PRN 30 days omeprazole 20 mg PO BID sennosides-docusate sodium 8.6-50 mg (Senna Plus) 1 tab-cap PO BEDTIME 90 days sertraline (Zoloft) 200 mg (2 x 100 mg) PO DAILY sucralfate 1 g PO BID 90 days timolol maleate 0.5% 1 drp ophthalmic (eye) DAILY trazodone 75 mg (1.5 x 50 mg) PO BEDTIME 30 days triamcinolone acetonide 0.025% 1 appl topical DAILY 30 days zolpidem 10 mg PO BEDTIME 30 days Tobacco use date assessed: 07/04/22 HPI HPI Comments History of Present Illness Details This is a 57-year-old female with hypertension, pure hypercholesterolemia, moderate recurrent major depression and GERD that comes today for follow-up on her conditions. Accompanied by daughter. Blood pressure stable. Cholesterol elevated and she does not know if she is actually taking statins. Depression stable with SSRI and this is follow by Psychiatry. GERD stable with PPIs. Her geoscience specialist is her daughter due to diffuse joint pain and depression with loss of attention she required someone to take care of her. [facility] Medical History Cataract Moderate recurrent major depression Vertigo Insomnia GERD (gastroesophageal reflux disease) Constipation by delayed colonic transit Moderate asthma Pure hypercholesterolemia Essential hypertension Surgical History History of right cataract extraction S/P myomectomy History of carpal tunnel release History of arthroscopy of right knee History of tubal ligation Family History Mother Leukemia FH: mental illness Family/Other CAD (coronary artery disease) Maternal Aunt Breast cancer Social History Housing: Apartment Are you a primary patient care technician instructor to a significant other at home: No Do you presently have visiting nurse or other home services: No Alcohol intake: former Patient Tobacco Use Status: Former Tobacco user Quit Date: yrs ago Tobacco use type: Cigarette e-Cigarette/Vaping Use: Never Used Second Hand Smoke Exposure: No service: No Current occupational status: unemployed Cognitive needs: No Hearing needs: No Vision needs: Yes (Glasses) Female Reproductive History Menstrual Age of Menarche: 7 Questionnaire Thrive Questionnaire Date Thrive assessed: 07/04/22 KHARI-7 AMB Questionnaire KHARI-7 Date KHARI - 7 assessed: 07/04/22 Source: Developed by Drs. Gavin Gr, Annita Luis, Chapincito Suresh and colleagues, with an educational susy from [employer] Review of Systems Const All systems reviewed & are unremarkable except as noted in HPI and below Eyes Reports no additional complaints, Denies change in vision and Denies other visual disturbances Card Denies chest pain at rest, Denies chest pain with activity, Denies edema, Denies irregular heart rhythm, Denies claudication, Denies dyspnea, Denies dyspnea on exertion, Denies orthopnea, Denies paroxysmal nocturnal dyspnea and Denies slow heart rate Resp Denies cough, Denies dyspnea and Denies dyspnea on exertion GI Denies abdominal pain, Denies change in bowel habits, Denies excessive flatus, Denies nausea and Denies vomiting Denies urinary incontinence, Denies urinary hesitancy and Denies urinary urgency Musc Denies abnormal gait, Denies atrophy, Denies deformity and Denies limited range of motion Skin/Breast Denies bleeding lesions, Denies changing lesions and Denies rash Neuro Denies abnormal gait and Denies lack of coordination Physical exam (Primary Care) Vital Signs: Last Vital Signs BP 132/80 02/05/23 15:52 BMI result Body Mass Index 34.4 Tobacco/Smoking Status: Tobacco use Status Tobacco use date assessed 07/04/22 02/05/23 15:56 Patient Tobacco Use Status Former Tobacco user 02/05/23 15:56 Tobacco use type Cigarette 02/05/23 15:56 e-Cigarette/Vaping Use Never Used 02/05/23 15:56 Thrive Assessment: Date of Thrive Assessment Date Thrive assessed 07/04/22 02/05/23 15:56 Eyes General: appearance normal, both eyes and all related structures Eyelids: Yes eyelids normal Conjunctivae: conjunctivae normal Neck Neck: Yes normal visual inspection and Yes supple Resp Effort & Inspection: normal respiratory effort Auscultation: clear to auscultation bilaterally Cardio Jugular venous distension: no JVD Rate: regular rate Rhythm: regular rhythm Heart sounds: S1 normal heart sound present and S2 normal heart sound present Extrem General: Yes full ROM Assessment and Plan Assessment & Plan (1) Essential hypertension: Code(s): I10 - Essential (primary) hypertension Plan: Continue lisinopril. Blood pressure goal is equal or less than 130/80. (2) Pure hypercholesterolemia: Code(s): E78.00 - Pure hypercholesterolemia, unspecified Plan: Be compliant with statins. (3) GERD (gastroesophageal reflux disease): Code(s): K21.9 - Gastro-esophageal reflux disease without esophagitis Qualifiers: Esophagitis presence: esophagitis presence not specified Qualified Code(s): K21.9 - Gastro-esophageal reflux disease without esophagitis Plan: Continue PPIs as needed. (4) Moderate recurrent major depression: Code(s): F33.1 - Major depressive disorder, recurrent, moderate Plan: Continue SSRIs. Follow-up with psychiatry. Orders: Orders Comprehensive Met. Panel Today M19.011 - Primary osteoarthritis, right shoulder Lipid Panel 3 Months E78.5 - Hyperlipidemia, unspecified Coding Level of Care Code Est Pt Level 4 (59645) Diagnoses Essential hypertension I10 Pure hypercholesterolemia E78.00 Gastroesophageal reflux disease, unspecified whether esophagitis present K21.9 Esophagitis presence: esophagitis presence not specified Moderate recurrent major depression F33.1 Time Spent (min) 23
[2023-02-05 15:52] VITALS: BP 132/80; BMI 34.4
== END 2023-02-05 16:14 | disposition home or self-care (01) ==
PROVIDERS: Visit Provider Internal Medicine
DX: I10 Essential (primary) hypertension (principal); E78.00 Pure hypercholesterolemia, unspecified; K21.9 Gastro-esophageal reflux disease without esophagitis; F33.1 Major depressive disorder, recurrent, moderate
CPT/HCPCS: 99214

== ENCOUNTER 2023-05-09 15:55 | Outpatient (AMB) | payer OTHER, SELFPAY ==
[2023-05-09 15:57] VITALS: BP 126/80; BMI 34.2
--- NOTE | 2023-05-09 15:57 | A.OFFPC_ITS ---
Vital Signs 05/09/23 15:57 Height 5 ft Weight 175 lb BMI 34.2 BP 126/80 Blood Pressure Location Lt brachial Position Sitting Intake Visit Reasons: PHYSICAL Intake Note: Patient here for a physical exam Enamel Shader Required: No Accompanied by: Daughter Allergies Penicillins [PENICILLINS] Allergy (Intermediate, Verified 05/09/23 16:06) rash Medication List - Last Reconciled 05/09/23 by Malika Sheets MD albuterol sulfate 90 mcg/actuation 1 puff PO Q4H PRN 30 days atorvastatin 80 mg PO BEDTIME 90 days cholecalciferol (vitamin D3) 50 mcg PO DAILY 90 days cyclobenzaprine 10 mg PO TID PRN fluticasone propionate 220 mcg/actuation (Flovent HFA) 1 puff PO BID 30 days fluticasone propionate 50 mcg/actuation 1 spray intranasal DAILY gabapentin (Neurontin) 600 mg PO DAILY 90 days ibuprofen 800 mg PO Q12H PRN 30 days lidocaine 4% (Aspercreme (lidocaine)) 1 patch topical DAILY PRN lisinopril 40 mg PO DAILY meclizine 12.5 mg PO TID PRN 30 days omeprazole 20 mg PO BID quetiapine 25 mg PO BEDTIME sennosides-docusate sodium 8.6-50 mg (Senna Plus) 1 tab-cap PO BEDTIME 90 days sertraline (Zoloft) 200 mg (2 x 100 mg) PO DAILY sucralfate 1 g PO BID 90 days timolol maleate 0.5% 1 drp ophthalmic (eye) DAILY trazodone 75 mg (1.5 x 50 mg) PO BEDTIME 30 days triamcinolone acetonide 0.025% 1 appl topical DAILY 30 days zolpidem 10 mg PO BEDTIME 30 days Tobacco use date assessed: 07/04/22 HPI HPI Comments History of Present Illness Details This is a 57-year-old female with mild a major depression that comes accompanied by daughter for her physical exam. Depression stable with trazodone. Last mammogram was June 2022 and was normal. Last Pap smear was October 2022 and was normal. Has not had a colonoscopy and would like to do Cologuard. Complains of right shoulder pain with limited range of motion. No chest pain or shortness of breath. Due to vertigo will benefit from shower chair and walker with seat and wheels. [facility] Medical History (Updated 05/09/23 @ 16:23 by Malika Sheets MD) Cataract Moderate recurrent major depression Vertigo Insomnia GERD (gastroesophageal reflux disease) Constipation by delayed colonic transit Moderate asthma Pure hypercholesterolemia Essential hypertension Surgical History History of right cataract extraction S/P myomectomy History of carpal tunnel release History of arthroscopy of right knee History of tubal ligation Family History Mother Leukemia FH: mental illness Family/Other CAD (coronary artery disease) Maternal Aunt Breast cancer Social History Housing: Apartment Are you a primary home care companion to a significant other at home: No Do you presently have visiting nurse or other home services: No Alcohol intake: former Patient Tobacco Use Status: Former Tobacco user Quit Date: yrs ago Tobacco use type: Cigarette e-Cigarette/Vaping Use: Never Used Second Hand Smoke Exposure: No service: No Current occupational status: unemployed Cognitive needs: No Hearing needs: No Vision needs: Yes (Glasses) Female Reproductive History Menstrual Age of Menarche: 7 Questionnaire Thrive Questionnaire Date Thrive assessed: 07/04/22 KHARI-7 AMB Questionnaire KHARI-7 Date KHARI - 7 assessed: 07/04/22 Source: Developed by Drs. Gavin Gr, Annita Luis, Chapincito Suresh and colleagues, with an educational susy from [employer]. Review of Systems Const All systems reviewed & are unremarkable except as noted in HPI and below Eyes Reports no additional complaints, Denies change in vision and Denies other visual disturbances Card Denies chest pain at rest, Denies chest pain with activity, Denies edema, Denies irregular heart rhythm, Denies claudication, Denies dyspnea, Denies dyspnea on exertion, Denies orthopnea, Denies paroxysmal nocturnal dyspnea and Denies slow heart rate Resp Denies cough, Denies dyspnea and Denies dyspnea on exertion GI Denies abdominal pain, Denies change in bowel habits, Denies excessive flatus, Denies nausea and Denies vomiting Denies urinary incontinence, Denies urinary hesitancy and Denies urinary urgency Musc Denies abnormal gait, Denies atrophy, Denies deformity, Reports arthralgias and Reports limited range of motion Skin/Breast Denies bleeding lesions, Denies changing lesions and Denies rash Neuro Denies abnormal gait, Denies behavioral changes, Denies confusion and Denies lack of coordination Psych Denies behavioral changes and Denies confusion Physical exam (Primary Care) Vital Signs: Last Vital Signs BP 126/80 05/09/23 15:57 BMI result Body Mass Index 34.2 Tobacco/Smoking Status: Tobacco use Status Tobacco use date assessed 07/04/22 05/09/23 16:04 Patient Tobacco Use Status Former Tobacco user 05/09/23 16:04 Tobacco use type Cigarette 05/09/23 16:04 e-Cigarette/Vaping Use Never Used 05/09/23 16:04 Thrive Assessment: Date of Thrive Assessment Date Thrive assessed 07/04/22 05/09/23 16:04 Const General: No confusion Orientation/consciousness: patient oriented x3 and No confusion HENMT Head: Yes normal to inspection, Yes normocephalic and Yes atraumatic Ears: external ears normal Eyes General: appearance normal, both eyes and all related structures Eyelids: Yes eyelids normal Conjunctivae: conjunctivae normal Neck Neck: Yes normal visual inspection and Yes supple Resp Effort & Inspection: normal respiratory effort Auscultation: clear to auscultation bilaterally Cardio Jugular venous distension: no JVD Rate: regular rate Rhythm: regular rhythm Heart sounds: S1 normal heart sound present and S2 normal heart sound present GI Inspection: Yes normal to inspection Palpation (GI): Soft to palpation and nontender Auscultation: normal bowel sounds Skin General skin exam: no rashes or lesions noted Neuro General: patient oriented x3, no focal motor deficits and No confusion Extrem Right upper extremity: shoulder/upper arm Details: tenderness and abnormal ROM Details: pain with active ROM Details: in ABduction and in extension Psych Appearance: grossly normal Assessment and Plan Assessment & Plan (1) Physical exam: Code(s): Z00.00 - Encounter for general adult medical examination without abnormal findings Plan: Repeat in a year. (2) Moderate recurrent major depression: Code(s): F33.1 - Major depressive disorder, recurrent, moderate Plan: Continue trazodone. Orders: Orders Vitamin D 25-OH Total Today E55.9 - Vitamin D deficiency, unspecified Comprehensive [place]. Panel Fast Today Z00.00 - Encounter for general adult medical examination without abnormal findings Referrals Cologuard Test Z12.11 - Encounter for screening for malignant neoplasm of colon, Z12.12 - Encounter for screening for malignant neoplasm of rectum Medications: New Shower Chair As directed 1 ea 0RF M19.011 - Primary osteoarthritis, right shoulder, M75.81 - Other shoulder lesions, right shoulder walker As directed 1 ea 0RF R42 - Dizziness and giddiness Coding Level of Care Code Est Pt Prev Care 40-64y(04544) Diagnoses Physical exam Z00.00 Moderate recurrent major depression F33.1 Time Spent (min) 32
== END 2023-05-09 16:16 | disposition home or self-care (01) ==
PROVIDERS: Visit Provider Internal Medicine
DX: Z00.00 Encounter for general adult medical examination without abnormal findings (principal); F33.1 Major depressive disorder, recurrent, moderate
CPT/HCPCS: 99396

== ENCOUNTER 2023-05-24 15:00 | Outpatient (REF) | payer OTHER, SELFPAY | END 2023-05-24 15:01 | disposition home or self-care (01) | LOC: HO.MAMMO 15:00 | PROVIDERS: PCP Internal Medicine; Visit Provider Internal Medicine | DX: Z12.31 Encounter for screening mammogram for malignant neoplasm of breast (principal) | CPT/HCPCS: 77063; 77067 ==

== ENCOUNTER → 2023-05-24 15:30 | Outpatient (BNV) | payer OTHER, SELFPAY | PROVIDERS: PCP Internal Medicine; Visit Provider Radiology Diagnostic Radiology | DX: Z12.31 Encounter for screening mammogram for malignant neoplasm of breast (principal) | CPT/HCPCS: 77063; 77067 ==

== ENCOUNTER 2023-11-11 15:51 | Outpatient (AMB) | payer OTHER, SELFPAY ==
[2023-11-11 16:03] VITALS: BP 110/84; PULSE 76; O2SAT 96; BMI 37.1
--- NOTE | 2023-11-11 16:03 | A.OFFPC_ITS ---
Vital Signs 11/11/23 16:03 Height 5 ft Weight 190 lb BMI 37.1 BP 110/84 Blood Pressure Location Lt brachial Position Sitting Pulse 76 Pulse Source Pulse Oximeter Pulse Oximetry (%) 96 Oxygen Delivery Method Room Air Intake Visit Reasons: bp Pump Installation And Servicer Required: No Accompanied by: Daughter Allergies Penicillins [PENICILLINS] Allergy (Intermediate, Verified 11/11/23 16:18) rash Medication List - Last Reconciled 11/11/23 by Malika Sheets MD albuterol sulfate 90 mcg/actuation 1 puff PO Q4H PRN 30 days atorvastatin 80 mg PO BEDTIME 90 days cholecalciferol (vitamin D3) 50 mcg PO DAILY 90 days cyclobenzaprine 10 mg PO TID PRN fluticasone furoate 50 mcg/actuation (Arnuity Ellipta) 1 inh inhalation DAILY 30 days fluticasone propionate 50 mcg/actuation 1 spray intranasal DAILY gabapentin (Neurontin) 600 mg PO DAILY 90 days ibuprofen 800 mg PO Q12H PRN 30 days lidocaine 4% (Aspercreme (lidocaine)) 1 patch topical DAILY PRN lisinopril 40 mg PO DAILY meclizine 12.5 mg PO TID PRN 30 days omeprazole 20 mg PO BID quetiapine 25 mg PO BEDTIME sennosides-docusate sodium 8.6-50 mg (Senna Plus) 1 tab-cap PO BEDTIME 90 days sertraline (Zoloft) 200 mg (2 x 100 mg) PO DAILY Shower Chair As directed sucralfate 1 g PO BID 90 days timolol maleate 0.5% 1 drp ophthalmic (eye) DAILY trazodone 75 mg (1.5 x 50 mg) PO BEDTIME 30 days triamcinolone acetonide 0.025% 1 appl topical DAILY 30 days walker As directed zolpidem 10 mg PO BEDTIME 30 days Tobacco use date assessed: 11/11/23 Dental Screening Dental Screen Date: 01/08/23 HPI HPI Comments History of Present Illness Details This is a 57-year-old female with hypertension, pure hypercholesterolemia, moderate recurrent major depression and fibromyalgia that comes today accompanied by daughter which is the business instructor complaining of neck pain radiating to the left shoulder and associated with left shoulder limitation in elevation and abduction. This started few weeks ago. No previous trauma. Will order x-ray of the neck and refer her to pain management. Blood pressure stable. On statins for her cholesterol. Depression well controlled with Seroquel and she does have a Psychiatry. For her fibromyalgia I will increase gabapentin to 3 times a day because she declines feeling sleepy after taking it. She walks with a cane for gait stability. She has obese with a BMI of 37.1 and was advised to do diet and exercise to reach BMI goal less than 30. [facility] History (Updated 11/11/23 @ 16:59 by Malika Sheets MD) Cataract Moderate recurrent major depression Vertigo Insomnia GERD (gastroesophageal reflux disease) Constipation by delayed colonic transit Moderate asthma Pure hypercholesterolemia Essential hypertension Surgical History History of right cataract extraction S/P myomectomy History of carpal tunnel release History of arthroscopy of right knee History of tubal ligation Family History Mother Leukemia FH: mental illness Family/Other CAD (coronary artery disease) Maternal Aunt Breast cancer Social History Housing: Apartment Are you a primary pharmacy customer care specialist to a significant other at home: No Do you presently have visiting nurse or other home services: No Alcohol intake: former Patient Tobacco Use Status: Former Tobacco user Tobacco use type: Cigarette e-Cigarette/Vaping Use: Never Used Second Hand Smoke Exposure: No service: No Current occupational status: unemployed Cognitive needs: No Hearing needs: No Vision needs: Yes (Glasses) Female Reproductive History Menstrual Age of Menarche: 7 Questionnaire PHQ-9 Over the last 2 weeks, how often have you been bothered by any of the following problems? 1. Little interest or pleasure in doing things: nearly every day 2. Feeling down, depressed, or hopeless: several days 3. Trouble falling or staying asleep, or sleeping too much: several days 4. Feeling tired or having little energy: several days 5. Poor appetite or overeating: several days 6. Feeling bad about yourself - or that you are a failure or have let yourself or your family down: not at all 7. Trouble concentrating on things, such as reading the newspaper or watching television: several days 8. Moving or speaking so slowly that other people could have noticed. Or the opposite - being so fidgety or restless that you have been moving around a lot more than usual: not at all 9. Thoughts that you would be better off or of hurting yourself in some way: not at all Total score: 8 Depression Screening Interpretation: Positive Depression Screening Follow-up: Existing condition, In treatment, Community Mental Health Worker F/U and Follow- up Visit Requested Depression Screening Done: Yes 00223 - PHQ-9 Billing: Yes Source: Developed by Drs. Gavin Gr, Annita Luis, Chapincito Suresh and colleagues, with an educational susy from [employer]. Thrive Questionnaire Date Thrive assessed: 11/11/23 I am a: Patient What is your living situation today?: I have a steady place to live Within the past 12 months, did the food you bought not last and you didn't have the money to get more?: Never true Within the past 12 months, did you worry whether your food would run out before you got money to buy more?: Never true Do you have trouble paying for medicines?: No Do you have trouble getting transportation to medical appointments?: No Do you have trouble paying your heating and electricity bill?: No Do you have trouble taking care of your child, family member or friend?: No Do you have trouble with day-to-day activities such as bathing, preparing meals, shopping, managing finances, etc.?: No Are you currently unemployed and looking for a job?: No Are you interested in more education?: No Please select the resources that you would like help with: None Currently or been in a relationship where the following occur: No concerns reported THRIVE Score: 0 AUDIT C Alcohol Use Questionnaire (AUDIT-C) 1. How often do you have a drink containing alcohol?: Never 3. How often do you have six or more drinks on one occasion?: Never Total Score: 0 Score Reviewed/Action Taken: No KHARI-7 AMB Questionnaire KHARI-7 Date KHARI - 7 assessed: 11/11/23 Feeling nervous, anxious, or on edge: 1 = Several days Not being able to stop or control worryin = Nearly every day Worrying too much about different things: 3 = Nearly every day Trouble relaxin = Several days Being so restless that it is hard to sit still: 1 = Several days Becoming easily annoyed or irritable: 1 = Several days Feeling afraid as if something awful might happen: 0 = Not at all Total KHARI-7 score (0-4 normal; 5-9 mild; 10-14 moderate; 15-21 severe): 10 Source: Developed by Drs. Gavin Gr, Annita Luis, Chapincito Suresh and colleagues, with an educational susy from [employer]. KHARI-7 Assessment Billing KHARI-7 Assessment Tool: KHARI-7 Assessment 53231 Review of Systems Const All systems reviewed & are unremarkable except as noted in HPI and below ENT Reports neck pain Card Denies chest pain at rest, Denies chest pain with activity, Denies edema, Denies irregular heart rhythm, Denies claudication, Denies dyspnea, Denies dyspnea on exertion, Denies orthopnea, Denies paroxysmal nocturnal dyspnea and Denies slow heart rate Resp Denies cough, Denies dyspnea and Denies dyspnea on exertion Musc Reports arthralgias, Reports limited range of motion and Reports neck pain Physical exam (Primary Care) Vital Signs: Last Vital Signs Pulse 76 11/11/23 16:03 BP 110/84 11/11/23 16:03 Pulse Ox 96 11/11/23 16:03 Oxygen Delivery Method Room Air 11/11/23 16:03 BMI result Body Mass Index 37.1 BMI Assessment/Plan discussion: High BMI High, discussed plan: weight reduction, dietary and physical activity Tobacco/Smoking Status: Tobacco use Status Tobacco use date assessed 11/11/23 11/11/23 16:12 Patient Tobacco Use Status Former Tobacco user 11/11/23 16:12 Tobacco use type Cigarette 11/11/23 16:12 e-Cigarette/Vaping Use Never Used 11/11/23 16:12 PHQ-9: PHQ-9 Score PHQ-9: Total score 8 11/11/23 16:23 Depression Screening Interpretation: Positive Depression Screening Follow-up: Existing condition, In treatment, Community Mental Health Worker F/U and Follow- up Visit Requested Thrive Assessment: Date of Thrive Assessment Date Thrive assessed 11/11/23 11/11/23 16:12 Currently or been in a relationship where the following occur: No concerns reported Const Limitations: ambulation with cane Resp Effort & Inspection: normal respiratory effort Auscultation: clear to auscultation bilaterally Cardio Jugular venous distension: no JVD Rate: regular rate Rhythm: regular rhythm Heart sounds: S1 normal heart sound present and S2 normal heart sound present Extrem General: Yes full ROM Assessment and Plan Assessment & Plan (1) Moderate recurrent major depression: Code(s): F33.1 - Major depressive disorder, recurrent, moderate Plan: Continue Seroquel. Follow-up with psychiatry. (2) Essential hypertension: Code(s): I10 - Essential (primary) hypertension Plan: Continue lisinopril. Blood pressure goal is equal or less than 130/80. (3) Pure hypercholesterolemia: Code(s): E78.00 - Pure hypercholesterolemia, unspecified Plan: Continue statins. (4) Neck pain: Code(s): M54.2 - Cervicalgia Plan: X-ray ordered. Referred to pain management. (5) Fibromyalgia: Code(s): M79.7 - Fibromyalgia Plan: Increase gabapentin to 3 times a day. Orders: Orders XR cervical spine 2V Today M54.2 - Cervicalgia Referrals Pain Management Referral M54.2 - Cervicalgia Dermatology Referral L98.9 - Disorder of the skin and subcutaneous tissue, unspecified Medications: Changed From gabapentin (Neurontin) 600 mg PO DAILY 90 days 90 tabs 0RF To gabapentin (Neurontin) 600 mg PO Q8H 270 tabs 0RF 90 days Coding Level of Care Code Est Pt Level 4 (70307) Complex EM visit Add On G2211 Diagnoses Moderate recurrent major depression F33.1 Essential hypertension I10 Pure hypercholesterolemia E78.00 Neck pain M54.2 Fibromyalgia M79.7 Additional Codes KHARI-7 Assessment Billing - KHARI-7 Assessment Tool: KHARI-7 Assessment 99581 ([id number]) Time Spent (min) 22
== END 2023-11-11 16:32 | disposition home or self-care (01) ==
PROVIDERS: PCP Internal Medicine; Visit Provider Internal Medicine
DX: I10 Essential (primary) hypertension (principal); F33.1 Major depressive disorder, recurrent, moderate; E78.00 Pure hypercholesterolemia, unspecified; M54.2 Cervicalgia; M79.7 Fibromyalgia
CPT/HCPCS: 99214; G2211

== ENCOUNTER 2024-01-08 14:23 | Outpatient (REF) | payer OTHER, SELFPAY ==
--- NOTE | ~2024-01-08 | XR_ITS ---
EXAMINATION: XR BOTH KNEES AP STANDING XR RIGHT KNEE, 2 VIEWS CLINICAL INFORMATION: Bilateral knee pain. COMPARISON: None available. TECHNIQUE: Standing AP view of both knees and lateral and sunrise views of the right knee. FINDINGS: LEFT KNEE: Mild medial and lateral compartment osteoarthritis on the single AP view with osteophytes and mild loss of joint space of the medial compartment. No fractures. Soft tissues are unremarkable. RIGHT KNEE: [id number]-ea-uzvuzp medial compartment osteoarthritis with joint space narrowing and marginal osteophytes as well as varus angulation at the knee. More [id number] lateral and patellofemoral compartment osteoarthritis. No fractures. No joint effusion. Bones are osteopenic. XR/XR knee LT 1V IMPRESSION: 1. Tricompartmental osteoarthritis in the right knee, most notably in the medial compartment where it is [id number]-[id number]. 2. Mild medial and lateral compartment osteoarthritis in the left knee. Electronically signed by: Timothy Johnson MD 01/28/2024 10:44 PM EDT
--- NOTE | ~2024-01-08 | XR_ITS ---
EXAMINATION: XR BOTH KNEES AP STANDING XR RIGHT KNEE, 2 VIEWS CLINICAL INFORMATION: Bilateral knee pain. COMPARISON: None available. TECHNIQUE: Standing AP view of both knees and lateral and sunrise views of the right knee. FINDINGS: LEFT KNEE: Mild medial and lateral compartment osteoarthritis on the single AP view with osteophytes and mild loss of joint space of the medial compartment. No fractures. Soft tissues are unremarkable. RIGHT KNEE: [id number] medial compartment osteoarthritis with joint space narrowing and marginal osteophytes as well as varus angulation at the knee. More [id number] lateral and patellofemoral compartment osteoarthritis. No fractures. No joint effusion. Bones are osteopenic. XR/XR knee RT 3V IMPRESSION: 1. Tricompartmental osteoarthritis in the right knee, most notably in the medial compartment where it is [id number]. 2. Mild medial and lateral compartment osteoarthritis in the left knee. Electronically signed by: Timothy Johnson MD 01/28/2024 10:44 PM EDT
== END 2024-01-08 14:24 | disposition home or self-care (01) ==
LOC: HO.HOSX 14:23
PROVIDERS: Visit Provider Physician Assistant
DX: M17.0 Bilateral primary osteoarthritis of knee (principal)
CPT/HCPCS: 20610; 73560; 73562; 99212; J1010

== ENCOUNTER 2024-01-08 15:38 | Outpatient (AMB) | payer OTHER, SELFPAY ==
--- NOTE | 2024-01-08 15:34 | MHC.OFFVIS ---
Vital Signs 01/08/24 15:40 Height 5 ft Weight 190 lb BMI 37.1 Intake Visit Reasons: New prob- RT knee pain Intake Note: Nette is a 58 year old female who presents today with her daughter for a evaluation of her right knee pain. Patient reports ongoing pain for many years. She states that her pain has been getting worse these past few months. Patient mentions that her pain is around her knee and she has some swelling. Patient has tried and failed 3 + months of taking ibuprofen/Tylenol, at home exercises and knee brace. Allergies Penicillins [PENICILLINS] Allergy (Intermediate, Verified 01/08/24 15:46) rash Medication List - Last Reconciled 01/08/24 by Gayle Mendoza PA-C acetaminophen ER 1,300 mg (2 x 650 mg) PO Q8H PRN 30 days albuterol sulfate 90 mcg/actuation 1 puff PO Q4H PRN 30 days atorvastatin 80 mg PO BEDTIME 90 days cholecalciferol (vitamin D3) 50 mcg PO DAILY 90 days cyclobenzaprine 10 mg PO TID PRN fluticasone furoate 50 mcg/actuation (Arnuity Ellipta) 1 inh inhalation DAILY 30 days fluticasone propionate 50 mcg/actuation 1 spray intranasal DAILY gabapentin (Neurontin) 600 mg PO Q8H 90 days ibuprofen 800 mg PO Q12H PRN 30 days lidocaine 4% (Aspercreme (lidocaine)) 1 patch topical DAILY PRN lisinopril 40 mg PO DAILY meclizine 12.5 mg PO TID PRN 30 days omeprazole 20 mg PO BID quetiapine 25 mg PO BEDTIME sennosides-docusate sodium 8.6-50 mg (Senna Plus) 1 tab-cap PO BEDTIME 90 days sertraline (Zoloft) 200 mg (2 x 100 mg) PO DAILY Shower Chair As directed sucralfate 1 g PO BID 90 days timolol maleate 0.5% 1 drp ophthalmic (eye) DAILY trazodone 75 mg (1.5 x 50 mg) PO BEDTIME 30 days triamcinolone acetonide 0.025% 1 appl topical DAILY 30 days walker As directed zolpidem 10 mg PO BEDTIME 30 days HPI HPI New prob- RT knee pain: Details: 58-year-old female who presents to the office today with her daughter for an evaluation of right knee pain. She states she has worsening pain in his around his right knee for many months that has been worsening for the past few months. She also reports swelling in her knee. She has tried 3+ months of ibuprofen, Tylenol, home exercises and knee brace without benefits. She does not have a history of diabetes. [facility] Medical History Cataract Moderate recurrent major depression Vertigo Insomnia GERD (gastroesophageal reflux disease) Constipation by delayed colonic transit Moderate asthma Pure hypercholesterolemia Essential hypertension Surgical History History of right cataract extraction S/P myomectomy History of carpal tunnel release History of arthroscopy of right knee History of tubal ligation Family History Mother Leukemia FH: mental illness Family/Other CAD (coronary artery disease) Maternal Aunt Breast cancer Social History Housing: Apartment Are you a primary customer care specialist to a significant other at home: No Do you presently have visiting nurse or other home services: No Alcohol intake: former Patient Tobacco Use Status: Former Tobacco user Tobacco use type: Cigarette e-Cigarette/Vaping Use: Never Used Second Hand Smoke Exposure: No service: No Current occupational status: unemployed Cognitive needs: No Hearing needs: No Vision needs: Yes (Glasses) Female Reproductive History Menstrual Age of Menarche: 7 Review of Systems Const All systems reviewed & are unremarkable except as noted in HPI and below Physical Exam Vital Signs: BMI result Body Mass Index 37.1 Extrem Other: Right knee: Skin intact, no erythema or joint effusion. Tenderness along the medial joint line and lateral retropatellar tenderness present. Full ROM with crepitus. Negative Deepthi?s. No ligamentous laxity. NVI. Office Procedures Joint Injection/Aspiration Joint Injection/Aspiration Primary Site: right knee Prep: site was prepped using aseptic technique, ethochloride spray was applied and injection warnings given Injected: 80 mg of, DepoMedrol, with 8 mL of, 1% plain lidocaine and in the joint Approach Used: anterolateral Procedure: The patient tolerated the procedure well and there was some relief with the local anesthesia Coding 38352 - Glenohumeral/Tronchanteric Bursa/Intraarticular Procedure code (CPT) selection complete Quality Reporting (2019) Adult ([facility] 13807/04/68) Smoking risk assessment performed?: Yes Patient Tobacco Use Status: Former Tobacco user Results Reviewed Results Reviewed: xrays of the right knee obtained today show end stage tricompartmental oa Assessment & Plan Assessment & Plan (1) Osteoarthritis of right knee: Code(s): M17.11 - Unilateral primary osteoarthritis, right knee Category: Medical Plan We discussed options today, which include steroid injection. The patient did consent to move forward with the right knee injection, which was tolerated well. I recommended rest, ice, and elevation and OTC anti-inflammatories as needed for discomfort. If symptoms persist or worsen over the next 6-8 weeks, patient will contact the office, otherwise follow-up as needed. She is also going to be referred to physical therapy. I would like to see her back in 6 weeks for a follow-up, sooner if needed. Orders: Orders XR knee LT 1V Today M25.562 - Pain in left knee Patient Instructions: Scribed for Gayle Mendoza PA-C, by Steven Mcnamara medical and scientific illustrator, on 01/08/2024 at 3:30 PM EST.? I, Gayle Mendoza PA-C, have personally reviewed and agree with the information entered by the scribe. Coding Level of Care Code Est Pt Level 3 (07994) Diagnoses Osteoarthritis of right knee M17.11 CPT Codes Coding - Joint 7: 80815 - Glenohumeral/Tronchanteric Bursa/Intraarticular ([id number])
[2024-01-08 15:40] VITALS: BMI 37.1
== END 2024-01-08 16:09 | disposition home or self-care (01) ==
PROVIDERS: PCP Internal Medicine; Visit Provider Physician Assistant
DX: M17.11 Unilateral primary osteoarthritis, right knee (principal)
CPT/HCPCS: 20610; 99213

== ENCOUNTER 2024-02-12 10:50 | Emergency (ER) | payer OTHER, SELFPAY ==
--- NOTE | ~2024-02-12 | XR_ITS ---
EXAMINATION: XR CHEST CLINICAL INFORMATION: Left-sided chest pain COMPARISON: None available. TECHNIQUE: 2 views of the chest were obtained. FINDINGS: No significant abnormality is noted involving the heart, lungs, mediastinum, bony thorax or soft tissues. XR/XR chest 2V IMPRESSION: No acute cardiopulmonary findings. Electronically signed by: Guanako Crowe MD 02/12/2024 12:45 PM EDT
[2024-02-12 11:00] VITALS: BP 131/65; PULSE 91; RESP 16; TEMP 36.4; O2SAT 97; BMI 35.2
--- NOTE | 2024-02-12 11:01 | ECG_ITS ---
Test Reason : cp Blood Pressure : / mmHG Vent. Rate : 095 BPM Atrial Rate : 095 BPM P-R Int : 160 ms QRS Dur : 090 ms QT Int : 350 ms P-R-T Axes : 001 -08 028 degrees QTc Int : 439 ms Normal sinus rhythm Minimal voltage criteria for LVH, may be normal variant ( [place] product ) Borderline ECG When compared with ECG of 04-JUL-2022 08:13, Vent. rate has increased BY 38 BPM Referred By: Mami Harrell Electronically Signed By:SHANTA MCKENZIE
--- NOTE | 2024-02-12 11:03 | ED.GENADULT ---
HPI - General Adult General Chief complaint: Chest Pain Stated complaint: cp-l side pain Time Seen by Provider: 02/12/24 12:33 Source: patient Mode of arrival: ambulatory Limitations: no limitations History of Present Illness HPI narrative: 58 year old female PMH: Osteoarthritis, fibromyalgia, neck pain, [place]oulder pain, depression GERD, HLD, HTN who presents to the ER with 1 hour of chest pain. Seen in triage had XR labs and a normal EKG. She states the pain started just prior to coming in she does have runny nose but denies any other symptoms she does have chronic pain and fibromyalgia to those areas as well. Related Data Home Medications ?Medication ?Instructions ?Recorded ?Confirmed timolol maleate 0.5 % eye drops 1 drp ophthalmic (eye) DAILY 04/24/22 01/08/24 quetiapine 25 mg tablet 25 mg PO BEDTIME 05/09/23 01/08/24 Previous Rx's ?Medication ?Instructions ?Recorded omeprazole 20 mg capsule,delayed 20 mg PO BID #60 caps 01/26/22 release triamcinolone acetonide 0.025 % 1 appl topical DAILY 30 days #15 09/06/22 topical cream grams trazodone 50 mg tablet 75 mg (1.5 x 50 mg) PO BEDTIME for 10/24/22 insomnia 30 days #45 tabs zolpidem 10 mg tablet 10 mg PO BEDTIME 30 days #30 tabs 10/24/22 sertraline 100 mg tablet (Zoloft) 200 mg (2 x 100 mg) PO DAILY #60 11/19/22 tabs cholecalciferol (vitamin D3) 50 50 mcg PO DAILY 90 days #90 caps 12/14/22 mcg (2,000 unit) capsule sucralfate 1 gram tablet 1 g PO BID 90 days #180 tabs 01/14/23 albuterol sulfate 90 mcg/actuation 1 puff PO Q4H PRN bronchospasm 30 02/07/23 aerosol inhaler days #6.7 grams sennosides 8.6 mg-docusate sodium 1 tab-cap PO BEDTIME 90 days #90 02/07/23 50 mg tablet (Senna Plus) tabs Shower Chair #1 ea 05/09/23 walker #1 ea 05/09/23 lidocaine 4 % topical patch 1 patch topical DAILY PRN pain #30 05/15/23 (Aspercreme (lidocaine)) ea fluticasone furoate 50 1 inh inhalation DAILY 30 days #30 05/22/23 mcg/actuation blister powder for ea inhalation (Arnuity Ellipta) atorvastatin 80 mg tablet 80 mg PO BEDTIME 90 days #90 tabs 08/03/23 lisinopril 40 mg tablet 40 mg PO DAILY #30 tabs 08/13/23 ibuprofen 800 mg tablet 800 mg PO Q12H PRN pain 30 days 10/10/23 #60 tabs cyclobenzaprine 10 mg tablet 10 mg PO TID PRN for pain #60 tabs 10/22/23 meclizine 12.5 mg tablet 12.5 mg PO TID PRN dizziness 30 10/22/23 days #90 tabs gabapentin 600 mg tablet 600 mg PO Q8H 90 days #270 tabs 11/11/23 (Neurontin) acetaminophen 650 mg 1,300 mg (2 x 650 mg) PO Q8H PRN 01/02/24 tablet,extended release pain 30 days #180 tabs fluticasone propionate 50 1 spray intranasal DAILY #16 mL 02/06/24 mcg/actuation nasal spray,suspension Allergies Allergy/AdvReac Type Severity Reaction Status Date / Time Penicillins [PENICILLINS] Allergy Intermediate rash Verified 02/12/24 11:08 Review of Systems Review of Systems: Review of systems: General: Patient denies any fever chills recent illness or falls Musculoskeletal: Denies back pain or body aches or other injuries HEENT: denies headache, runny nose, ear pain Respiratory: denies shortness of breath, cough Cardiovascular: chest pain no palpitations : denies dysuria, frequency Abdomen: no nausea vomiting denies abdominal pain Extremities: no swelling, no pain Skin: no diaphoresis Yes all other systems are reviewed and are negative PMF Past Medical History Medical History Cataract Moderate recurrent major depression Vertigo Insomnia GERD (gastroesophageal reflux disease) Constipation by delayed colonic transit Moderate asthma Pure hypercholesterolemia Essential hypertension Surgical History History of right cataract extraction S/P myomectomy History of carpal tunnel release History of arthroscopy of right knee History of tubal ligation Family History Family History Mother Leukemia FH: mental illness Family/Other CAD (coronary artery disease) Maternal Aunt Breast cancer Social History Social History Housing: Apartment Are you a primary childcare worker to a significant other at home: No Do you presently have visiting nurse or other home services: No Alcohol intake: former Patient Tobacco Use Status: Former Tobacco user Tobacco use type: Cigarette e-Cigarette/Vaping Use: Never Used Second Hand Smoke Exposure: No Advance Directives: No Advance Directives Information Provided: Yes Do you have a plan to hurt others: No Plan service: No Current occupational status: unemployed Cognitive needs: No Hearing needs: No Vision needs: Yes (Glasses) Physical Exam ED Vital Signs: Vital Signs - 24 hr 02/12/24 11:00 Temperature 97.5 F Pulse Rate 91 Respiratory Rate 16 Blood Pressure 131/65 Pulse Oximetry 97 Oxygen Delivery Method Room Air BMI result Body Mass Index 35.2 General: Well-appearing well-nourished in no signs of distress HEENT: Normocephalic atraumatic Neck: No signs of JVD, no masses no tenderness or lymphadenopathy Cardiovascular: Regular rate and rhythm Respiratory: Clear to auscultation bilaterally Abdomen: Soft nontender no masses Extremities: Normal pedal pulses no signs of edema Skin: Dry warm no rashes Back: No tenderness full ROM Course Course Course Narrative: This is a rapid medical exam performed by Sruthi Harrell NP: Additional HPI, ROS, PE not included below will be deferred to primary provider. Patient is a 58-year-old Romanian speaking female with history of fibromyalgia, cognitive impairment, obesity, GERD, asthma, HTN, hypercholesterolemia, depression presenting to the emergency department with complaint of left sided chest pain for the past hour. Denies radiation of pain, N/V. Reports pain with inspiration. Plan: EKG, labs, CXR, viral serology Reevaluation(s) Reevaluation #1: 1502 Symptoms are resolved XR and labs are okay. Does have covid. Will send home. Medications Administered Discontinued Medications Generic Name Dose Route Start Last Admin Trade Name Freq PRN Reason Stop Dose Admin Acetaminophen 650 mg 02/12/24 12:57 02/12/24 13:28 Acetaminophen 325 Mg Tablet PO 02/12/24 12:58 650 mg ONCE ONE Administration Ketorolac Tromethamine 15 mg 02/12/24 12:57 02/12/24 13:28 Ketorolac Tromethamine 15 Mg/Ml Vial IVPUSH 02/12/24 12:58 Not Given ONCE ONE Ketorolac Tromethamine 15 mg 02/12/24 13:25 02/12/24 13:29 Ketorolac Tromethamine 30 Mg/Ml Vial IM 02/12/24 13:26 15 mg ONCE ONE Administration Medical Decision Making Medical Decision Making [facility] Narrative: Patient did test positive for COVID she is not able to identify how long she has had the symptoms she is not toxic in appearance and I do not think she needs anything she has never been vaccinated for COVID though. Differential Diagnosis Differential Diagnoses: The differential diagnosis associated with the presentation includes Chest pain ACS chest wall pain fibromyalgia pain chronic pain Lab Data [facility] Lab Attestation statement: I reviewed the patient's lab results. 02/12/24 11:51 02/12/24 11:51 Labs: Lab Results 02/12/24 02/12/24 Range/Units 11:51 13:33 WBC 6.4 (4.8-10.8) X10*3/uL RBC 5.08 (4.20-5.50) X10*6/uL Hgb 14.6 (12.0-16.0) g/dl Hct 43.3 (37.0-47.0) % MCV 85.2 (80.0-98.0) fL MCH 28.7 (27.0-33.0) pg MCHC 33.7 (31.0-35.0) g/dl RDW 12.8 (11.0-16.0) % Plt Count 196 (160-400) X10*3/uL MPV 9.7 (9.4-12.3) fL Immature Gran % (Auto) 0.3 (0.0-0.4) % Neut % (Auto) 66.6 (45-73) % Lymph % (Auto) 24.0 (20-40) % [place] % (Auto) 8.7 (2-11) % Eos % (Auto) 0.2 (0-4) % Baso % (Auto) 0.2 (0-2) % Lymph # (Auto) 1.5 (1.2-4.9) X10*3/uL [place] # (Auto) 0.6 (0.1-1.2) X10*3/uL Eos # (Auto) 0.0 (0.0-0.4) X10*3/uL Baso # (Auto) 0.0 (0.0-0.2) X10*3/uL Abs Immat Gran (auto) 0.02 (0.00-0.03) X10*3/uL Absolute Neuts (auto) 4.3 (2.0-8.3) x10*3/uL Absolute Nucleated RBC 0.000 (0.0-0.012) X10*3/uL Nucleated RBC % (auto) 0.0 (0.0-0.2) /100WBC PT 12.2 (10.9-12.4) SEC INR 1.0 (0.9-1.1) Sodium 141 (135-145) mmol/L Potassium 3.7 (3.3-5.1) mmol/L Chloride 106 (96-108) mmol/L Carbon Dioxide 27 (22-29) mmol/L Anion Gap 12 (12-20) BUN 13 (9-16) mg/dL Creatinine 0.84 (0.5-1.4) mg/dL Estim Creat Clear Calc 67.4 Estimated GFR > 60 Random Glucose 142 H (60-115) mg/dL Calcium 9.5 (8.4-10.2) mg/dL Total Bilirubin 1.4 H (0.0-1.0) mg/dL AST 26 (5-31) U/L ALT 27 (0-31) U/L Alkaline Phosphatase 81 (39-117) U/L Troponin I High Sens 3.5 4.6 (<3.5-17.0) ng/L Total Protein 7.0 (6.5-8.0) g/dL Albumin 3.9 (3.5-5.0) g/dL Influenza Type A (PCR) NEGATIVE (Negative) Influenza Type B (PCR) NEGATIVE (Negative) RSV RNA Qual (PCR) NEGATIVE (Negative) SARS-CoV-2 RNA (RT-PCR) POSITIVE A (Negative) Independent Interpretation I performed an independent interpretation of an: EKG and Plain X-Ray Interpretation: Rate 95 sinus tachycardia normal intervals no signs of ischemia no change from previous. Radiology Impression Discussion of test interpretation with radiology: I have reviewed the radiologist's reading. Independent Historian Clinical information obtained from an independent historian. History obtained from or confirmed by: Friend External Record Review External record reviewed: Inpatient record, Office record, Outpatient record, Prior outpatient labs and Prior outpatient radiology Scores Heart Score History: -0- slightly suspicious ECG: -0- normal Age: -1- >45 - <65 Risk factory: -0- no risk factors known Troponin: -0- < or = normal limit Score: 1 Risk: 1.7% Discharge Plan Discharge Clinical Impression: Chest pain, COVID Patient Disposition: Home, Self-Care Instructions: Chest Pain (DC), COVID-19 (Coronavirus Disease 2019) (ED) Additional Instructions: You were seen today for chest pain. You had a XR and labs done which were normal. You also had swabs done which shows that you have covid. Please try to quarantine until you have no symptoms and follow up with your doctor as needed. Prescriptions: No Action omeprazole 20 mg capsule,delayed release(DR/EC) 20 mg PO BID Qty: 60 6RF trazodone 50 mg tablet 75 mg PO BEDTIME 30 Days Qty: 45 2RF zolpidem 10 mg tablet 10 mg PO BEDTIME 30 Days Qty: 30 0RF sertraline [Zoloft] 100 mg tablet 200 mg PO DAILY Qty: 60 0RF cholecalciferol (vitamin D3) 50 mcg (2,000 unit) capsule 50 mcg PO DAILY 90 Days Qty: 90 3RF sucralfate 1 gram tablet 1 g PO BID 90 Days Qty: 180 3RF sennosides-docusate sodium [Senna Plus] 8.6-50 mg tablet 1 tab-cap PO BEDTIME 90 Days Qty: 90 3RF albuterol sulfate 90 mcg/actuation HFA aerosol inhaler 1 puff PO Q4H PRN (Reason: bronchospasm) 30 Days Qty: 6.7 12RF lidocaine [Aspercreme (lidocaine)] 4 % adhesive patch,medicated 1 patch topical DAILY PRN (Reason: pain) Qty: 30 0RF Arnuity Ellipta 50 mcg/actuation blister with device 1 inh inhalation DAILY 30 Days Qty: 30 6RF atorvastatin 80 mg tablet 80 mg PO BEDTIME 90 Days Qty: 90 2RF lisinopril 40 mg tablet 40 mg PO DAILY Qty: 30 5RF ibuprofen 800 mg tablet 800 mg PO Q12H PRN (Reason: pain) 30 Days Qty: 60 2RF cyclobenzaprine 10 mg tablet 10 mg PO TID PRN (Reason: for pain) Qty: 60 6RF meclizine 12.5 mg tablet 12.5 mg PO TID PRN (Reason: dizziness) 30 Days Qty: 90 5RF acetaminophen 650 mg tablet extended release 1,300 mg PO Q8H PRN (Reason: pain) 30 Days Qty: 180 0RF fluticasone propionate 50 mcg/actuation spray,suspension 1 spray intranasal DAILY Qty: 16 1RF gabapentin [Neurontin] 600 mg tablet 600 mg PO Q8H 90 Days Qty: 270 0RF timolol maleate 0.5 % drops 1 drp ophthalmic (eye) DAILY triamcinolone acetonide 0.025 % cream 1 appl topical DAILY 30 Days Qty: 15 0RF quetiapine 25 mg tablet 25 mg PO BEDTIME (DME) walker Misc See Rx Instructions .Route Qty: 1 0RF Rx Instructions: As directed (DME) Shower Chair Misc See Rx Instructions .Route Qty: 1 0RF Rx Instructions: As directed Print Language: Romanian
[2024-02-12 12:03] LABS: MANUAL DIFF FLAG NO
[2024-02-12 12:05] LABS: Basophils Percent Auto 0.2 % (0-2); Eosinophils Percent Auto 0.2 % (0-4); Hematocrit 43.3 % (37.0-47.0); Hemoglobin 14.6 g/dl (12.0-16.0); Imm Gran Abs Auto 0.02 X10*3/uL (0.00-0.03); Imm Gran Pct Auto 0.3 % (0.0-0.4); Lymphocytes Absolute Auto 1.5 X10*3/uL (1.2-4.9); Mean Corpuscular HGB Conc 33.7 g/dl (31.0-35.0); Mean Corpuscular Hemoglobin 28.7 pg (27.0-33.0); Mean Corpuscular Volume 85.2 fL (80.0-98.0); Mean Platelet Volume 9.7 fL (9.4-12.3); Monocytes Absolute Auto 0.6 X10*3/uL (0.1-1.2); Monocytes Percent Auto 8.7 % (2-11); Neutrophils Absolute Auto 4.3 x10*3/uL (2.0-8.3); Neutrophils Percent Auto 66.6 % (45-73); Platelet Count 196 X10*3/uL (160-400); Red Blood Count 5.08 X10*6/uL (4.20-5.50); Red Cell Distribution Width 12.8 % (11.0-16.0); White Blood Count 6.4 X10*3/uL (4.8-10.8)
[2024-02-12 12:12] LABS: Prothrombin Time 12.2 SEC (10.9-12.4)
[2024-02-12 12:17] LABS: Alanine Aminotransferase 27 U/L (0-31); Albumin Level 3.9 g/dL (3.5-5.0); Alkaline Phosphatase 81 U/L (39-117); Anion Gap 12 (12-20); Aspartate Amino Transferase 26 U/L (5-31); Bilirubin Total 1.4 mg/dL (0.0-1.0); Blood Urea Nitrogen 13 mg/dL (9-16); Calcium 9.5 mg/dL (8.4-10.2); Carbon Dioxide 27 mmol/L (22-29); Chloride 106 mmol/L (96-108); Creatinine Clr Calc Pharmacy 67.4; Estimated Glomerular Filt Rate > 60; Glucose Random 142 mg/dL (60-115); Potassium 3.7 mmol/L (3.3-5.1); Sodium 141 mmol/L (135-145)
[2024-02-12 12:24] LABS: Troponin-I High Sensitivity 3.5 ng/L (<3.5-17.0)
[2024-02-12 12:42] LABS: Influenza A PCR NEGATIVE (Negative); Influenza B PCR NEGATIVE (Negative); Resp Syncy Virus RNA Qual PCR NEGATIVE (Negative); SARS COV2 PCR INHOUSE POSITIVE (Negative)
[2024-02-12] MEDS: Acetaminophen 325 MG TABLET 650 MG PO (13:28)
[2024-02-12] MEDS: Ketorolac Tromethamine 30 MG/ML VIAL 15 MG IM (13:29)
--- NOTE | 2024-02-12 13:31 | PC.NURSE ---
pt medicated for 3/10 sternal pain with coughing.
[2024-02-12 14:06] LABS: Troponin-I High Sensitivity 4.6 ng/L (<3.5-17.0)
[2024-02-12 15:25] VITALS: BP 121/65; PULSE 72; RESP 16; TEMP 36.4; O2SAT 97
== END 2024-02-12 15:26 | disposition home or self-care (01) ==
PROVIDERS: Registered Nurse Emergency; Emergency Provider Student in an Organized Health Care Education/Training Program; PCP Internal Medicine
DX: U07.1 COVID-19 (principal); R07.9 Chest pain, unspecified
CPT/HCPCS: 0241U; 36415; 71046; 80053; 84484; 85025; 85610; 93005; 96372; 99283; 99284; J1885

== ENCOUNTER 2024-02-19 15:19 | Outpatient (AMB) | payer OTHER, SELFPAY ==
[2024-02-19 15:21] VITALS: BMI 32.9
--- NOTE | 2024-02-19 15:21 | A.OFFVIS_ITS ---
Vital Signs 02/19/24 15:21 Height 5 ft 2 in Weight 180 lb BMI 32.9 Intake Visit Reasons: RT knee pain 6wk f/u Intake Note: Nette is 58 year old female that presents today with right knee pain. [employer] Required: Yes [employer] Language: Overweaver Name: Nelson Brizuela 780 Allergies Penicillins [PENICILLINS] Allergy (Intermediate, Verified 02/19/24 15:25) rash Medication List - Last Reconciled 02/19/24 by Gayle Mendoza PA-C acetaminophen ER 1,300 mg (2 x 650 mg) PO Q8H PRN 30 days albuterol sulfate 90 mcg/actuation 1 puff PO Q4H PRN 30 days atorvastatin 80 mg PO BEDTIME 90 days cholecalciferol (vitamin D3) 50 mcg PO DAILY 90 days cyclobenzaprine 10 mg PO TID PRN fluticasone furoate 50 mcg/actuation (Arnuity Ellipta) 1 inh inhalation DAILY 30 days fluticasone propionate 50 mcg/actuation 1 spray intranasal DAILY gabapentin (Neurontin) 600 mg PO Q8H 90 days ibuprofen 800 mg PO Q12H PRN 30 days lidocaine 4% (Aspercreme (lidocaine)) 1 patch topical DAILY PRN lisinopril 40 mg PO DAILY meclizine 12.5 mg PO TID PRN 30 days omeprazole 20 mg PO BID quetiapine 25 mg PO BEDTIME sennosides-docusate sodium 8.6-50 mg (Senna Plus) 1 tab-cap PO BEDTIME 90 days sertraline (Zoloft) 200 mg (2 x 100 mg) PO DAILY Shower Chair As directed sucralfate 1 g PO BID 90 days timolol maleate 0.5% 1 drp ophthalmic (eye) DAILY trazodone 75 mg (1.5 x 50 mg) PO BEDTIME 30 days triamcinolone acetonide 0.025% 1 appl topical DAILY 30 days walker As directed zolpidem 10 mg PO BEDTIME 30 days HPI HPI RT knee pain 6wk f/u: Details: 58-year-old female returns to the office today for ongoing right knee pain. She was last seen by me on January 07 where she had a cortisone injection which only relieved her pain for a couple of days. She continues to have limitations in daily activities. Pain with stairs. She ambulates with a cane. [facility] Medical History Cataract Moderate recurrent major depression Vertigo Insomnia GERD (gastroesophageal reflux disease) Constipation by delayed colonic transit Moderate asthma Pure hypercholesterolemia Essential hypertension Surgical History History of right cataract extraction S/P myomectomy History of carpal tunnel release History of arthroscopy of right knee History of tubal ligation Family History Mother Leukemia FH: mental illness Family/Other CAD (coronary artery disease) Maternal Aunt Breast cancer Social History Housing: Apartment Are you a primary patient care provider to a significant other at home: No Do you presently have visiting nurse or other home services: No Alcohol intake: former Patient Tobacco Use Status: Former Tobacco user Tobacco use type: Cigarette e-Cigarette/Vaping Use: Never Used Second Hand Smoke Exposure: No service: No Current occupational status: unemployed Cognitive needs: No Hearing needs: No Vision needs: Yes (Glasses) Female Reproductive History Menstrual Age of Menarche: 7 Review of Systems Const All systems reviewed & are unremarkable except as noted in HPI and below Physical Exam Vital Signs: BMI result Body Mass Index 32.9 Extrem Other: Right knee: Skin intact, no erythema or joint effusion. Tenderness along the medial joint line and lateral retropatellar tenderness present. Full ROM with crepitus. Negative Deepthi?s. No ligamentous laxity. NVI. Quality Reporting (2020) Adult ([facility] 138/07/04/68) Smoking risk assessment performed?: Yes Patient Tobacco Use Status: Former Tobacco user Assessment & Plan Assessment & Plan (1) Osteoarthritis of right knee: Code(s): M17.11 - Unilateral primary osteoarthritis, right knee Category: Medical Plan: I discussed options with the patient and her daughter in the office today given the failed conservative treatment options and her continued limitations in activities I explained she may be a candidate for total knee arthroplasty. She is interested in pursuing this. I recommend she meet with Dr. Edwards to discuss this further so he can answer all her questions. I did explain that she will have to wait 3 months from her last injection which pushed her to about beginning of April possibly into May. Coding Level of Care Code Est Pt Level 4 (57110) Complex EM visit Add On G2211 Diagnoses Osteoarthritis of right knee M17.11
== END 2024-02-19 15:50 | disposition home or self-care (01) ==
PROVIDERS: PCP Internal Medicine; Visit Provider Physician Assistant
DX: M17.11 Unilateral primary osteoarthritis, right knee (principal)
CPT/HCPCS: 99214; G2211

== ENCOUNTER → 2024-02-19 15:19 | Outpatient (BNVA) | payer OTHER, SELFPAY | PROVIDERS: PCP Internal Medicine; Visit Provider Physician Assistant | DX: M17.11 Unilateral primary osteoarthritis, right knee (principal) | CPT/HCPCS: 99212 ==

== ENCOUNTER 2024-03-12 14:07 | Outpatient (AMB) | payer OTHER, SELFPAY ==
[2024-03-12 14:25] VITALS: BMI 32.9
--- NOTE | 2024-03-12 14:25 | MHC.OFFVIS ---
Vital Signs 03/12/24 14:25 Height 5 ft 2 in Weight 180 lb BMI 32.9 Intake Visit Reasons: OV-Right total knee-discuss surgery Intake Note: Nette is a 58 year old female who presents today for a follow up of her right knee OA. She was last seen with Gayle who referred her for a discussion of possible surgical intervention. Last injection administered 01/08/2024 Allergies Penicillins [PENICILLINS] Allergy (Intermediate, Verified 03/12/24 14:25) rash HPI HPI OV-Right total knee-discuss surgery: Details: This is a 58-year-old woman who comes in today with continuing right knee pain. She has severe varus pattern osteoarthritis and has not benefitted from injections. She uses a cane to walk and she feels severely limited. Her biggest anxiety is that she is going to [place] for a family trip in May and does not want to disrupt this with surgery. She states she can not walk without pain. She feels most her pain in the medial aspect of the right knee. [facility] Medical History Cataract Moderate recurrent major depression Vertigo Insomnia GERD (gastroesophageal reflux disease) Constipation by delayed colonic transit Moderate asthma Pure hypercholesterolemia Essential hypertension Surgical History History of right cataract extraction S/P myomectomy History of carpal tunnel release History of arthroscopy of right knee History of tubal ligation Family History Mother Leukemia FH: mental illness Family/Other CAD (coronary artery disease) Maternal Aunt Breast cancer Social History Housing: Apartment Are you a primary personal care aide to a significant other at home: No Do you presently have visiting nurse or other home services: No Alcohol intake: former Patient Tobacco Use Status: Former Tobacco user Tobacco use type: Cigarette e-Cigarette/Vaping Use: Never Used Second Hand Smoke Exposure: No service: No Current occupational status: unemployed Cognitive needs: No Hearing needs: No Vision needs: Yes (Glasses) Female Reproductive History Menstrual Age of Menarche: 7 Physical Exam Vital Signs: BMI result Body Mass Index 32.9 Extrem Other: Antalgic gait Tender on an and 20 degrees of motion Moderate varus malalignment Effusion +1 Tenderness to palpation medial compartment Quality Reporting (2020) Adult ([facility] 13807/04/68) Smoking risk assessment performed?: Yes Patient Tobacco Use Status: Former Tobacco user Results Reviewed Results Reviewed: I personally reviewed relevant radiographs. Severe osteoarthritis bilateral knees right greater than left Assessment & Plan Assessment & Plan (1) Osteoarthritis of right knee: Code(s): M17.11 - Unilateral primary osteoarthritis, right knee Category: Medical Plan: This is a 58-year-old woman with severe varus pattern osteoarthritis of the right knee. She is severely affected and can not walk comfortably. She is here today with her son. I do recommend a right knee replacement. She understands this recommendation. I explained to her the risks, benefits and alternatives. She would like to postpone this to after her trip to [place]. I think this is reasonable. I will have our nurse navigator begin the process of preoperative clearance. She does have multiple medical conditions including fibromyalgia. Coding Level of Care Code Est Pt Level 4 (01260) Diagnoses Osteoarthritis of right knee M17.11
== END 2024-03-12 14:58 | disposition home or self-care (01) ==
LOC: HO.HOS 14:07
PROVIDERS: PCP Internal Medicine; Visit Provider Orthopaedic Surgery
DX: M17.11 Unilateral primary osteoarthritis, right knee (principal)
CPT/HCPCS: 99214

== ENCOUNTER → 2024-03-12 14:07 | Outpatient (BNVA) | payer OTHER, SELFPAY | PROVIDERS: PCP Internal Medicine; Visit Provider Orthopaedic Surgery | DX: M17.11 Unilateral primary osteoarthritis, right knee (principal) | CPT/HCPCS: 99212 ==

== ENCOUNTER 2024-04-02 15:40 | Outpatient (RCR) | payer OTHER, SELFPAY ==
--- NOTE | 2024-03-02 18:12 | MHC.PT.EP ---
[facility] [place] Office [place] Office [place] [facility] [address] Ousmane Mccartney [address] [phone] F: [phone] F: [phone] F: [phone] F: [phone] Physical Therapy Plan of Care Date of Evaluation: 03/02/24 Date of Surgery: TBD Diagnosis: knee OA (mod-severe med compartment per imaging) (RS) Assessment: Nette is a 58 yo Sami speaking female who has been referred to PT by Gayle Mendoza PA-C for DX of R knee OA (mod-severe med compartment seen on x-ray imaging). Impairments include limited knee ROM, localized swelling, decreased knee strength, and antalgic gait pattern resulting in her inability to squat, bend, or use stairs. These deficits impact her ability to participate in ADLs, and ambulating in the community. Pt will benefit from skilled PT to address aforementioned impairments. Frequency and Duration: The patient will be seen 2x/week for 4 weeks Short Term Goals: 2 weeks Pt will be able to perform HEP to manage condition independently. Patient will reduce pain to 8/10 while walking with cane on L side with proper pattern for 100ft. Senior Living Goals: 4 weeks Patient will be able to increase knee strength to 3+/5 to walk up stairs into the home. Patient will be able to increase knee ROM to 90 degrees without pain to squat when cleaning low surfaces. Treatment Plan: Modalities to reduce pain, spasms and effusion. Manual therapy to restore motion and function. Therapeutic exercise to improve strength and flexibility. Neuromuscular re-education for posture and balance. Therapeutic activities to return to functional activities of daily living. Electronically signed by: Columba Alcazar, PT, DPT Please sign and return to therapist. Thank you for your referral.
== END 2024-06-12 11:58 | disposition home or self-care (01) ==
LOC: HO.PT 15:40
PROVIDERS: PCP Internal Medicine; Visit Provider Physician Assistant
DX: M17.11 Unilateral primary osteoarthritis, right knee (principal)
CPT/HCPCS: 97014; 97110; 97162; 97530

== ENCOUNTER 2024-04-17 15:01 | Outpatient (AMB) | payer OTHER, SELFPAY ==
--- NOTE | 2024-04-17 15:24 | A.OFFVIS_ITS ---
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 No complaints. Last Pap/HPV was negative in 11/02 Last Mammogram was BI-RADS 1 in 06/05 No previous screening Colonoscopy PFSH Medical History Cataract Moderate recurrent major depression Vertigo Insomnia GERD (gastroesophageal reflux disease) Constipation by delayed colonic transit Moderate asthma Pure hypercholesterolemia Essential hypertension Surgical History History of right cataract extraction S/P myomectomy History of carpal tunnel release History of arthroscopy of right knee History of tubal ligation Family History Mother Leukemia FH: mental illness Family/Other CAD (coronary artery disease) Maternal Aunt Breast cancer Social History Housing: Apartment Are you a primary critical care educator to a significant other at home: No Do you presently have visiting nurse or other home services: No Alcohol intake: former Patient Tobacco Use Status: Former Tobacco user Tobacco use type: Cigarette e-Cigarette/Vaping Use: Never Used Second Hand Smoke Exposure: No service: No Current occupational status: unemployed Cognitive needs: No Hearing needs: No Vision needs: Yes (Glasses) Female Reproductive History Menstrual Age of Menarche: 7 Date of last pap smear: 10/26/22 Date of Mammogram: 05/24/23 Review of Systems Const All systems reviewed & are unremarkable except as noted in HPI and below Card Reports as per HPI Resp Reports as per HPI GI Reports as per HPI and Reports no additional complaints Reports as per HPI Physical Exam Vital Signs: BMI result Body Mass Index 32.9 Const General: cooperative, healthy appearing and comfortable Chest Chest palpation & inspection: normal inspection of the chest and normal palpation of entire chest wall Breast/axilla inspection: normal inspection of the breasts and normal inspection of the axillae Breast/axilla palpation: normal palpation of the breasts, normal palpation of the axillae and no axillary lymphadenopathy Resp Effort & Inspection: normal respiratory effort Auscultation: clear to auscultation bilaterally Percussion: percussion normal Cardio Palpation: normal PMI Rate: regular rate Rhythm: regular rhythm Heart sounds: no murmurs and no rubs Peripheral pulses: Peripheral pulses 2+ throughout GI Inspection: Yes normal to inspection Palpation (GI): Soft to palpation, nontender, no guarding, not rigid and No hepatosplenomegaly present Percussion: Yes normal to percussion Auscultation: normal bowel sounds Rectal Exam - Female: deferred General: Yes bladder normal to palpation External Female Exam: No lesion Speculum Exam - Vagina: normal appearance of the vagina, normal palpation, normal vaginal discharge and not erythematous Speculum Exam - Cervix: normal appearance of the cervix and normal palpation Bimanual exam- vagina & uterus: normal bimanual exam, normal palpation, uterine size normal, bladder normal to palpation, consistency normal and normal palpation Bimanual Exam- Adnexa, other: normal adnexae, no masses and no tenderness Quality Reporting (2019) Adult ([facility] ) Smoking risk assessment performed?: Yes Patient Tobacco Use Status: Former Tobacco user Assessment & Plan Assessment & Plan (1) Well woman exam: Code(s): Z01.419 - Encounter for gynecological examination (general) (routine) without abnormal findings Category: Medical Plan: Co testing not indicated this year. Counseled the patient about the recommended dietary allowance of 1200 mg of Calcium & 600 IU of vitamin D. Mammogram ordered. The patient was referred to GI for screening colonoscopy . The patient was instructed to perform monthly self-breast exams and schedule annual exam in a year. All questions answered and the patient verbalized understanding. Orders: Orders MM tomosynthesis screening BI Today Z12.31 - Encounter for screening mammogram for malignant neoplasm of breast Referrals Gastroenterology Referral Z12.11 - Encounter for screening for malignant neoplasm of colon Coding Level of Care Code Est Pt Prev Care 40-64y(47301) Diagnoses Well woman exam Z01.419
[2024-04-17 15:25] VITALS: BP 122/70; BMI 32.9
== END 2024-04-17 15:45 | disposition home or self-care (01) ==
PROVIDERS: PCP Internal Medicine; Visit Provider Obstetrics & Gynecology
DX: Z01.419 Encounter for gynecological examination (general) (routine) without abnormal findings (principal)
CPT/HCPCS: 99396

== ENCOUNTER → 2024-04-17 15:01 | Outpatient (BNVA) | payer OTHER, SELFPAY | PROVIDERS: PCP Internal Medicine; Visit Provider Obstetrics & Gynecology | DX: Z01.419 Encounter for gynecological examination (general) (routine) without abnormal findings (principal) | CPT/HCPCS: 99396; 99459 ==

== ENCOUNTER 2024-05-14 08:44 | Outpatient (AMB) | payer OTHER, SELFPAY ==
--- NOTE | 2024-05-14 08:49 | MHC.PC.OV ---
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 Accompanied by: Self / Same As Patient Allergies Penicillins [PENICILLINS] Allergy (Intermediate, Verified 05/14/24 09:20) rash Medication List - Last Reconciled 05/14/24 by Malika Sheets MD acetaminophen ER 1,300 mg (2 x 650 mg) PO Q8H PRN 30 days albuterol sulfate 90 mcg/actuation 1 puff PO Q4H PRN 30 days atorvastatin 80 mg PO BEDTIME 90 days cholecalciferol (vitamin D3) 50 mcg PO DAILY 90 days cyclobenzaprine 10 mg PO TID PRN fluticasone furoate 50 mcg/actuation (Arnuity Ellipta) 1 inh inhalation DAILY 30 days fluticasone propionate 50 mcg/actuation 1 spray intranasal DAILY gabapentin (Neurontin) 600 mg PO Q8H 90 days ibuprofen 800 mg PO Q12H PRN 30 days lidocaine 4% (Aspercreme (lidocaine)) 1 patch topical DAILY PRN lisinopril 40 mg PO DAILY meclizine 12.5 mg PO TID PRN 30 days omeprazole 20 mg PO BID quetiapine 25 mg PO BEDTIME sennosides-docusate sodium 8.6-50 mg (Senna Plus) 1 tab-cap PO BEDTIME 90 days sertraline (Zoloft) 200 mg (2 x 100 mg) PO DAILY Shower Chair As directed sucralfate 1 g PO BID 90 days timolol maleate 0.5% 1 drp ophthalmic (eye) DAILY trazodone 75 mg (1.5 x 50 mg) PO BEDTIME 30 days triamcinolone acetonide 0.025% 1 appl topical DAILY 30 days walker FOLDING FRONT WHEELED WALKER DURATION 99 DAYS zolpidem 10 mg PO BEDTIME 30 days Tobacco use date assessed: 05/14/24 Dental Screening Dental Screen Date: 05/14/24 Did you have a dental visit in the last 12 months?: No Did you have a dental problem in the last 6 months where you did not have access to dental care?: No Was dental information given to patient?: Patient has dentist HPI HPI Comments History of Present Illness Details The patient is a 58-year-old female presenting for a preoperative evaluation ahead of a scheduled surgery of right total knee replacement in June. Her current medical history includes essential hypertension managed with Lisinopril, which she took today. Despite being on the maximum dose, her blood pressure readings remain elevated, suggesting the need for further management. I will add amlodipine 2.5 mg once a day and recheck 05/18/2023 which she has an appointment with me for her physical exam. The patient also has a history of asthma managed with several medications, including Albuterol for rescue purposes and a daily regimen of RN (assumed to be a reference to a maintenance inhaler). She reports a history of hyperlipidemia treated with Atorvastatin 80 mg at night. The patient has a complicated medication regimen necessitated by various comorbidities, including seasonal allergies treated with nasal sprays, GERD for which she takes Omeprazole, and insomnia addressed with Seroquel at night. She experiences depression for which Sertraline is prescribed. She also reports muscle spasms for which Cyclobenzaprine is used as needed. Additionally, constipation is managed with a stimulant laxative, Senna. Surgical history includes bilateral carpal tunnel release and right knee arthroscopy, with ongoing knee issues evident. The patient extends therapeutic treatment to asthma, using regimen RN daily, and recent medication changes include adjustments to her ibuprofen regimen due to replacement with an unspecified new medication. The patient has a noted allergic reaction to Penicillin manifesting as a rash. She has a medium risk surgery patient going to a medium risk surgery has 5-7 Mets of ADLs. Walks with a cane for gait stability. EKG and labs pending for medical clearance. [facility] Medical History Cataract Moderate recurrent major depression Vertigo Insomnia GERD (gastroesophageal reflux disease) Constipation by delayed colonic transit Moderate asthma Pure hypercholesterolemia Essential hypertension Surgical History History of right cataract extraction S/P myomectomy History of carpal tunnel release History of arthroscopy of right knee History of tubal ligation Family History Mother Leukemia FH: mental illness Family/Other CAD (coronary artery disease) Maternal Aunt Breast cancer Social History Housing: Apartment Are you a primary career transition specialist to a significant other at home: No Do you presently have visiting nurse or other home services: No Alcohol intake: former Patient Tobacco Use Status: Former Tobacco user Tobacco use type: Cigarette e-Cigarette/Vaping Use: Never Used Second Hand Smoke Exposure: No service: No Current occupational status: unemployed Cognitive needs: No Hearing needs: No Vision needs: Yes (Glasses) Female Reproductive History Menstrual Age of Menarche: 7 Questionnaire PHQ-9 Over the last 2 weeks, how often have you been bothered by any of the following problems? 1. Little interest or pleasure in doing things: nearly every day 2. Feeling down, depressed, or hopeless: several days 3. Trouble falling or staying asleep, or sleeping too much: several days 4. Feeling tired or having little energy: several days 5. Poor appetite or overeating: several days 6. Feeling bad about yourself - or that you are a failure or have let yourself or your family down: not at all 7. Trouble concentrating on things, such as reading the newspaper or watching television: several days 8. Moving or speaking so slowly that other people could have noticed. Or the opposite - being so fidgety or restless that you have been moving around a lot more than usual: not at all 9. Thoughts that you would be better off or of hurting yourself in some way: not at all Total score: 8 Depression Screening Interpretation: Positive Depression Screening Follow-up: Existing condition, In treatment, Community Mental Health Worker F/U and Follow-up Visit Requested Depression Screening Done: Yes 76491 - PHQ-9 Billing: Yes Source: Developed by Drs. Gavin Gr, Annita Luis, Chapincito Suresh and colleagues, with an educational susy from [employer]. Thrive Questionnaire Date Thrive assessed: 05/14/24 I am a: Patient What is your living situation today?: I have a steady place to live Within the past 12 months, did the food you bought not last and you didn't have the money to get more?: Never true Within the past 12 months, did you worry whether your food would run out before you got money to buy more?: Never true Do you have trouble paying for medicines?: No Do you have trouble getting transportation to medical appointments?: No Do you have trouble paying your heating and electricity bill?: No Do you have trouble taking care of your child, family member or friend?: No Do you have trouble with day-to-day activities such as bathing, preparing meals, shopping, managing finances, etc.?: No Are you currently unemployed and looking for a job?: No Are you interested in more education?: No Please select the resources that you would like help with: None Currently or been in a relationship where the following occur: No concerns reported THRIVE Score: 0 KHARI-7 AMB Questionnaire KHARI-7 Date KHARI - 7 assessed: 05/14/24 Feeling nervous, anxious, or on edge: 0 = Not at all Not being able to stop or control worryin = Not at all Worrying too much about different things: 0 = Not at all Trouble relaxin = Not at all Being so restless that it is hard to sit still: 0 = Not at all Becoming easily annoyed or irritable: 0 = Not at all Feeling afraid as if something awful might happen: 0 = Not at all Total KHARI-7 score (0-4 normal; 5-9 mild; 10-14 moderate; 15-21 severe): 0 Source: Developed by Drs. Gavin Gr, Annita Luis, Chapincito Suresh and colleagues, with an educational susy from [employer]. KHARI-7 Assessment Billing KHARI-7 Assessment Tool: KHARI-7 Assessment 98932 Review of Systems Const Details: - Musculoskeletal: Reports difficulty with right knee when flexed; prefers extension. - Cardiovascular: Denies chest pain or shortness of breath on exertion. - General: Denies issues when ascending stairs; uses elevator at home due to knee condition. Physical exam (Primary Care) Vital Signs: Last Vital Signs Pulse 70 05/14/24 08:50 BP 152/72 H 05/14/24 08:50 Pulse Ox 96 05/14/24 08:50 Oxygen Delivery Method Room Air 05/14/24 08:50 Care Plan Goal for BP management: Add amlodipine. BMI result Body Mass Index 33.5 BMI Assessment/Plan discussion: High BMI High, discussed plan: lifestyle, weight reduction, dietary and physical activity Tobacco/Smoking Status: Tobacco use Status Tobacco use date assessed 05/14/24 05/14/24 09:06 Patient Tobacco Use Status Former Tobacco user 05/14/24 08:49 Tobacco use type Cigarette 05/14/24 08:49 e-Cigarette/Vaping Use Never Used 05/14/24 08:49 PHQ-9: PHQ-9 Score PHQ-9: Total score 8 05/14/24 09:21 Depression Screening Interpretation: Positive Depression Screening Follow-up: Existing condition, In treatment, Community Mental Health Worker F/U and Follow-up Visit Requested Thrive Assessment: Date of Thrive Assessment Date Thrive assessed 05/14/24 05/14/24 09:06 Currently or been in a relationship where the following occur: No concerns reported Const Other: General: No confusion, walks with a cane Respiratory: Normal respiratory effort, clear to auscultation bilaterally Cardiovascular: No jugular venous distension, regular rate, regular rhythm, S1 normal heart sound present and S2 normal heart sound present Neurology: Patient oriented x3, no focal motor deficits and No confusion Extremities: Full ROM, patient feels better with the right knee extended rather than flexed Psychology: Grossly normal Office Procedures Flu Questionnaire Does the patient have a severe egg allergy?: No Does the patient have severe life threatening allergies?: No Does the patient have a fever or illness today?: No Has the patient ever had Guillain-Monument Syndrome?: No Has the patient ever had any past reaction to a flu shot?: No Immunizations Fluarix Triv 0613-0840 (PF) 45 mcg (15 mcg x 3)/0.5 mL IM syringe Performing Provider: Malika Sheets MD [place] [facility] Administered by: Diana Wagoner LPN on 05/14/24 09:21 Dose Route Admin Location Dispensed Lot Number Expiration Date [facility] [place] Goal Umpire 0.5 mL IM Left Deltoid 0.5 mL [id number] 11/09/24 02574-438-70 [employer] VIS Given Date VIS Provided VIS Publication Date 05/14/24 Single Vaccine 20 Eligibility Eligibility Date Funding Source Not [facility] Eligible 05/14/24 Private Coding Level of Care Code Est Pt Level 4 (47662) Complex EM visit Add On G2211 Diagnoses Pre-op exam Z01.818 Osteoarthritis of right knee M17.11 Gastroesophageal reflux disease, unspecified whether esophagitis present K21.9 Esophagitis presence: esophagitis presence not specified Essential hypertension I10 Pure hypercholesterolemia E78.00 Moderate persistent asthma without complication J45.40 Asthma persistence: persistent Asthma complication type: uncomplicated Additional Codes KHARI-7 Assessment Billing - KHARI-7 Assessment Tool: KHARI-7 Assessment 82138 ([id number]) PHQ-9 - 65444 - PHQ-9 Billing: Yes ([id number]) Time Spent (min) 24 Assessment & Plan Assessment & Plan (1) Pre-op exam: Code(s): Z01.818 - Encounter for other preprocedural examination Category: Medical (2) Osteoarthritis of right knee: Code(s): M17.11 - Unilateral primary osteoarthritis, right knee Category: Medical (3) GERD (gastroesophageal reflux disease): Code(s): K21.9 - Gastro-esophageal reflux disease without esophagitis Category: Medical Qualifiers: Esophagitis presence: esophagitis presence not specified Qualified Code(s): K21.9 - Gastro-esophageal reflux disease without esophagitis (4) Essential hypertension: Code(s): I10 - Essential (primary) hypertension Category: Medical (5) Pure hypercholesterolemia: Code(s): E78.00 - Pure hypercholesterolemia, unspecified Category: Medical (6) Moderate asthma: Code(s): J45.909 - Unspecified asthma, uncomplicated Category: Medical Qualifiers: Asthma persistence: persistent Asthma complication type: uncomplicated Qualified Code(s): J45.40 - Moderate persistent asthma, uncomplicated Plan - Continue Lisinopril for hypertension; consider addition of another antihypertensive due to elevated readings today. - Review and adjust asthma medication regimen to ensure optimal control. - Continue current regimen for hyperlipidemia. - Consider further evaluation for ongoing insomnia and depression management. - Conduct preoperative labs and electrocardiogram for surgical clearance. - Advise against NSAIDs due to recent medication changes; identify alternative if necessary. Patient was informed and verbally consented to the use of an ambient scribe for clinic note documentation during this visit. During the visit, I discussed with the patient the need for an updated electrocardiogram and laboratory work to ensure surgical clearance. I explained the importance of optimizing blood pressure control before the procedure in June. The potential addition of a second antihypertensive was suggested to manage elevated readings. I emphasized the necessity of consistent asthma management as surgery approaches. Furthermore, the patient agreed to continue her current medication regimen for depression and insomnia, with the caveat that ongoing management would be reviewed after surgery. The importance of non-NSAID pain relief was noted due to recent changes in her medication regimen, and further clarification of alternatives will be provided. Orders: Orders Vitamin D 25-OH Total Today E55.9 - Vitamin D deficiency, unspecified Influenza [id number] Immunization Today Z23 - Encounter for immunization Lipid Panel Today E78.5 - Hyperlipidemia, unspecified ECG 12 lead EKG Today Z01.818 - Encounter for other preprocedural examination Complete Blood Count Auto Diff Today E66.9 - Obesity, unspecified Medications: New amlodipine 2.5 mg PO DAILY 90 tabs 1RF 90 days Patient Instructions: - Begin new antihypertensive medication as discussed. - Continue all current medications as prescribed. - Follow up in one week to reassess blood pressure and complete preoperative evaluations. - Maintain current asthma management strategy and notify of any changes in symptoms. - Schedule for preoperative labs and electrocardiogram as instructed. - Avoid any NSAIDs unless further clarification is given. - Reach out if experiencing unusual symptoms or increased pain.
[2024-05-14 08:50] VITALS: BP 152/72; PULSE 70; O2SAT 96; BMI 33.5
== END 2024-05-14 09:36 | disposition home or self-care (01) ==
PROVIDERS: PCP Internal Medicine; Visit Provider Internal Medicine
DX: Z01.818 Encounter for other preprocedural examination (principal); M17.11 Unilateral primary osteoarthritis, right knee; K21.9 Gastro-esophageal reflux disease without esophagitis; I10 Essential (primary) hypertension; E78.00 Pure hypercholesterolemia, unspecified; J45.40 Moderate persistent asthma, uncomplicated; Z23 Encounter for immunization

== ENCOUNTER → 2024-05-14 08:44 | Outpatient (REF) | payer OTHER, SELFPAY ==
--- NOTE | 2024-05-14 09:56 | ECG_ITS ---
Test Reason : preop Blood Pressure : / mmHG Vent. Rate : 058 BPM Atrial Rate : 058 BPM P-R Int : 166 ms QRS Dur : 090 ms QT Int : 432 ms P-R-T Axes : 005 -02 037 degrees QTc Int : 424 ms Sinus bradycardia Otherwise normal ECG When compared with ECG of 12-FEB-2024 10:50, Vent. rate has decreased BY 37 BPM Referred By: Malika Sheets Electronically Signed By:RAKESH LEMUS MD
[2024-05-14 10:03] LABS: MANUAL DIFF FLAG NO
[2024-05-14 11:06] LABS: Basophils Percent Auto 0.6 % (0-2); Eosinophils Absolute Auto 0.1 X10*3/uL (0.0-0.4); Hematocrit 45.2 % (37.0-47.0); Hemoglobin 14.4 g/dl (12.0-16.0); Imm Gran Abs Auto 0.03 X10*3/uL (0.00-0.03); Imm Gran Pct Auto 0.4 % (0.0-0.4); Lymphocytes Absolute Auto 2.1 X10*3/uL (1.2-4.9); Lymphocytes Percent Auto 28.8 % (20-40); Mean Corpuscular HGB Conc 31.9 g/dl (31.0-35.0); Mean Corpuscular Hemoglobin 28.3 pg (27.0-33.0); Mean Platelet Volume 10.2 fL (9.4-12.3); Monocytes Absolute Auto 0.5 X10*3/uL (0.1-1.2); Monocytes Percent Auto 7.3 % (2-11); Neutrophils Absolute Auto 4.3 x10*3/uL (2.0-8.3); Neutrophils Percent Auto 60.9 % (45-73); Platelet Count 262 X10*3/uL (160-400); Red Blood Count 5.08 X10*6/uL (4.20-5.50); Red Cell Distribution Width 12.9 % (11.0-16.0); White Blood Count 7.1 X10*3/uL (4.8-10.8)
[2024-05-14 11:27] LABS: Cholesterol 243 mg/dL (<200); HDL Cholesterol 53 mg/dL (>40); LDL Cholesterol Calculated 146 mg/dL (<100); Triglycerides 223 mg/dL (<150)
[2024-05-14 11:45] LABS: Vitamin D 25-OH Total 31.8 ng/mL (>30)
== END ==
LOC: HO.CARD 08:44
PROVIDERS: PCP Internal Medicine; Visit Provider Internal Medicine
DX: Z01.818 Encounter for other preprocedural examination (principal); Z23 Encounter for immunization; E78.5 Hyperlipidemia, unspecified; E66.9 Obesity, unspecified; E55.9 Vitamin D deficiency, unspecified; M17.11 Unilateral primary osteoarthritis, right knee; K21.9 Gastro-esophageal reflux disease without esophagitis; I10 Essential (primary) hypertension; E80.0 Hereditary erythropoietic porphyria; J45.40 Moderate persistent asthma, uncomplicated
CPT/HCPCS: 36415; 80061; 82306; 85025; 90471; 90656; 93005; 96127; 99212

== ENCOUNTER → 2024-05-14 09:56 | Outpatient (BNV) | payer OTHER, SELFPAY | PROVIDERS: PCP Internal Medicine; Visit Provider Internal Medicine Cardiovascular Disease | DX: R00.1 Bradycardia, unspecified (principal) | CPT/HCPCS: 93010 ==

== ENCOUNTER 2024-05-18 15:19 | Outpatient (AMB) | payer OTHER, SELFPAY ==
[2024-05-18 15:33] VITALS: BP 130/82; PULSE 78; O2SAT 97; BMI 33.6
--- NOTE | 2024-05-18 15:33 | A.OFFPC_ITS ---
Vital Signs 05/18/24 15:33 Height 5 ft 2 in Weight 183 lb 8 oz BMI 33.6 BP 130/82 Blood Pressure Location Lt brachial Position Sitting Pulse 78 Pulse Source Pulse Oximeter Pulse Oximetry (%) 97 Oxygen Delivery Method Room Air Intake Visit Reasons: Annual Exam Intake Note: Patient is here today for a physical. Resident Manager Required: No Accompanied by: Daughter Allergies Penicillins [PENICILLINS] Allergy (Intermediate, Verified 05/18/24 16:03) rash Medication List - Last Reconciled 05/18/24 by Malika Sheets MD acetaminophen ER 1,300 mg (2 x 650 mg) PO Q8H PRN 30 days albuterol sulfate 90 mcg/actuation 1 puff PO Q4H PRN 30 days amlodipine 2.5 mg PO DAILY 90 days atorvastatin 80 mg PO BEDTIME 90 days cholecalciferol (vitamin D3) 50 mcg PO DAILY 90 days cyclobenzaprine 10 mg PO TID PRN fluticasone furoate 50 mcg/actuation (Arnuity Ellipta) 1 inh inhalation DAILY 30 days fluticasone propionate 50 mcg/actuation 1 spray intranasal DAILY gabapentin (Neurontin) 600 mg PO Q8H 90 days ibuprofen 800 mg PO Q12H PRN 30 days lidocaine 4% (Aspercreme (lidocaine)) 1 patch topical DAILY PRN lisinopril 40 mg PO DAILY meclizine 12.5 mg PO TID PRN 30 days omeprazole 20 mg PO BID quetiapine 25 mg PO BEDTIME sennosides-docusate sodium 8.6-50 mg (Senna Plus) 1 tab-cap PO BEDTIME 90 days sertraline (Zoloft) 200 mg (2 x 100 mg) PO DAILY Shower Chair As directed sucralfate 1 g PO BID 90 days timolol maleate 0.5% 1 drp ophthalmic (eye) DAILY trazodone 75 mg (1.5 x 50 mg) PO BEDTIME 30 days triamcinolone acetonide 0.025% 1 appl topical DAILY 30 days walker FOLDING FRONT WHEELED WALKER DURATION 99 DAYS zolpidem 10 mg PO BEDTIME 30 days Tobacco use date assessed: 05/14/24 Dental Screening Dental Screen Date: 05/14/24 HPI HPI Comments History of Present Illness Details The patient is a 58-year-old female presenting for her physical exam. She is currently prescribed lisinopril 40 mg and amlodipine 2.5 mg to control her blood pressure, but she reports concerns about its management. She also takes ibuprofen and Tylenol for other conditions, while avoiding penicillin due to allergies. Her hypertension management history includes treatment with the aforementioned medications, which require ongoing assessment due to persistent high cholesterol noted at 243 mg/dL, indicating suboptimal control. The patient has a relevant history of depression and insomnia, for which she is on psychiatric medications. Noteworthy past medical procedures include cataract surgery, uterine surgery, and bilateral carpal tunnel release. There is a significant family history with her mother's related to leukemia. The patient's adherence to current treatment and lifestyle modifications remains crucial in managing her chronic conditions. - Last mammogram conducted in May. - Pap smear completed in 2022. - Prescribed use of Cologuard for colon cancer screening, pending completion. Will be refer for colonoscopy. - Regular assessment of bone density ind icated ( densitometry, bone ). - Discussed high cholesterol management and the importance of medication adherence. - Pneumonia vaccine done 2 years ago. [facility] Medical History Cataract Moderate recurrent major depression Vertigo Insomnia GERD (gastroesophageal reflux disease) Constipation by delayed colonic transit Moderate asthma Pure hypercholesterolemia Essential hypertension Surgical History History of right cataract extraction S/P myomectomy History of carpal tunnel release History of arthroscopy of right knee History of tubal ligation Family History Mother Leukemia FH: mental illness Family/Other CAD (coronary artery disease) Maternal Aunt Breast cancer Social History Housing: Apartment Are you a primary direct care specialist to a significant other at home: No Do you presently have visiting nurse or other home services: No Alcohol intake: former Patient Tobacco Use Status: Former Tobacco user Tobacco use type: Cigarette e-Cigarette/Vaping Use: Never Used Second Hand Smoke Exposure: No service: No Current occupational status: unemployed Cognitive needs: No Hearing needs: No Vision needs: Yes (Glasses) Female Reproductive History Menstrual Age of Menarche: 7 Questionnaire PHQ-9 Over the last 2 weeks, how often have you been bothered by any of the following problems? 1. Little interest or pleasure in doing things: several days 2. Feeling down, depressed, or hopeless: several days 3. Trouble falling or staying asleep, or sleeping too much: several days 4. Feeling tired or having little energy: several days 5. Poor appetite or overeating: several days 6. Feeling bad about yourself - or that you are a failure or have let yourself or your family down: not at all 7. Trouble concentrating on things, such as reading the newspaper or watching television: several days 8. Moving or speaking so slowly that other people could have noticed. Or the opposite - being so fidgety or restless that you have been moving around a lot more than usual: several days 9. Thoughts that you would be better off or of hurting yourself in some way: not at all Total score: 7 Depression Screening Interpretation: Positive Depression Screening Follow-up: Existing condition, In treatment and Follow-up Visit Requested Depression Screening Done: Yes 12046 - PHQ-9 Billing: Yes Source: Developed by Drs. Gavin Gr, Annita Luis, Chapincito Suresh and colleagues, with an educational susy from [employer]. Thrive Questionnaire Date Thrive assessed: 05/18/24 I am a: Patient What is your living situation today?: I have a steady place to live Within the past 12 months, did the food you bought not last and you didn't have the money to get more?: I choose not to answer this question Within the past 12 months, did you worry whether your food would run out before you got money to buy more?: I choose not to answer this question Do you have trouble paying for medicines?: No Do you have trouble getting transportation to medical appointments?: No Do you have trouble paying your heating and electricity bill?: No Do you have trouble taking care of your child, family member or friend?: I choose not to answer this question Do you have trouble with day-to-day activities such as bathing, preparing meals, shopping, managing finances, etc.?: Yes Are you currently unemployed and looking for a job?: I choose not to answer this question Are you interested in more education?: I choose not to answer this question Please select the resources that you would like help with: None Currently or been in a relationship where the following occur: I choose not to answer THRIVE Score: 0 AUDIT C Alcohol Use Questionnaire (AUDIT-C) 1. How often do you have a drink containing alcohol?: Never 3. How often do you have six or more drinks on one occasion?: Never Total Score: 0 Score Reviewed/Action Taken: No KHARI-7 AMB Questionnaire KHARI-7 Date KHARI - 7 assessed: 05/18/24 Feeling nervous, anxious, or on edge: 1 = Several days Not being able to stop or control worryin = Several days Worrying too much about different things: 1 = Several days Trouble relaxin = Several days Being so restless that it is hard to sit still: 1 = Several days Becoming easily annoyed or irritable: 1 = Several days Feeling afraid as if something awful might happen: 0 = Not at all Total KHARI-7 score (0-4 normal; 5-9 mild; 10-14 moderate; 15-21 severe): 6 Source: Developed by Drs. Gavin Gr, Annita Luis, Chapincito Suresh and colleagues, with an educational susy from [employer]. KHARI-7 Assessment Billing KHARI-7 Assessment Tool: KHARI-7 Assessment 54341 Review of Systems Const All systems reviewed & are unremarkable except as noted in HPI and below Card Denies chest pain at rest, Denies chest pain with activity, Denies edema, Denies irregular heart rhythm, Denies claudication, Denies dyspnea, Denies dyspnea on exertion, Denies orthopnea, Denies paroxysmal nocturnal dyspnea and Denies slow heart rate Resp Denies cough, Denies dyspnea and Denies dyspnea on exertion GI Denies abdominal pain, Denies change in bowel habits, Denies excessive flatus, Denies nausea and Denies vomiting Neuro Denies behavioral changes and Denies lack of coordination Psych Denies behavioral changes Physical exam (Primary Care) Vital Signs: Last Vital Signs Pulse 78 05/18/24 15:33 BP 130/82 05/18/24 15:33 Pulse Ox 97 05/18/24 15:33 Oxygen Delivery Method Room Air 05/18/24 15:33 BMI result Body Mass Index 33.6 BMI Assessment/Plan discussion: High BMI High, discussed plan: lifestyle, weight reduction, dietary and physical activity Tobacco/Smoking Status: Tobacco use Status Tobacco use date assessed 05/14/24 05/18/24 15:34 Patient Tobacco Use Status Former Tobacco user 05/18/24 15:34 Tobacco use type Cigarette 05/18/24 15:34 e-Cigarette/Vaping Use Never Used 05/18/24 15:34 PHQ-9: PHQ-9 Score PHQ-9: Total score 7 05/18/24 16:21 Depression Screening Interpretation: Positive Depression Screening Follow-up: Existing condition, In treatment and Follow-up Visit Requested Thrive Assessment: Date of Thrive Assessment Date Thrive assessed 05/18/24 05/18/24 15:40 Currently or been in a relationship where the following occur: I choose not to answer HENMT Head: Yes normal to inspection, Yes normocephalic and Yes atraumatic Ears: external ears normal Eyes General: appearance normal, both eyes and all related structures Eyelids: Yes eyelids normal Conjunctivae: conjunctivae normal Neck Neck: Yes normal visual inspection and Yes supple Resp Effort & Inspection: normal respiratory effort Auscultation: clear to auscultation bilaterally Cardio Jugular venous distension: no JVD Rate: regular rate Rhythm: regular rhythm Heart sounds: S1 normal heart sound present and S2 normal heart sound present GI Inspection: Yes normal to inspection Palpation (GI): Soft to palpation and nontender Auscultation: normal bowel sounds Skin General skin exam: no rashes or lesions noted Neuro General: no focal motor deficits Extrem General: Yes full ROM Psych Appearance: grossly normal Immunizations tetanus-diphtheria toxoids-Td 2 Lf unit-2 Lf unit/0.5 mL IM suspension Performing Provider: Malika Sheets MD [facility] Administered by: JAKY Deras on 05/18/24 16:21 Dose Route Admin Location Dispensed Lot Number Expiration Date [facility] Controller Instructor 0.5 mL IM Right Deltoid 0.5 mL [id number] 06/22/24 [address]-5 [employer] VIS Given Date VIS Provided VIS Publication Date 05/18/24 Single Vaccine 20 Eligibility Eligibility Date Funding Source [place] [facility] [place] 05/18/24 State funds Coding Level of Care Code Est Pt Prev Care 40-64y(01682) Diagnoses Physical exam Z00.00 Moderate recurrent major depression F33.1 Additional Codes KHARI-7 Assessment Billing - KHARI-7 Assessment Tool: KHARI-7 Assessment 48532 ([id number]) PHQ-9 - 11844 - PHQ-9 Billing: Yes ([id number]) Time Spent (min) 31 Assessment & Plan Assessment & Plan (1) Physical exam: Code(s): Z00.00 - Encounter for general adult medical examination without abnormal findings Category: Medical (2) Moderate recurrent major depression: Code(s): F33.1 - Major depressive disorder, recurrent, moderate Category: Medical Plan - Evaluate and optimize hypertension management, considering potential adjustments in current medications. - Continue monitoring cholesterol levels and emphasize adherence to statin thera py or alternative lipid-lowering agents as discussed. - Reinforce the importance of completing scheduled health screenings, including the Cologuard test for colorectal cancer which and I will refer her for colonoscopy. - Assess continuation of medications for insomnia and depression, monitor effectiveness, and side effects. - Provide guidance on lifestyle modifications to include structured exercises to improve cardiovascular health. Patient was informed and verbally consented to the use of an ambient scribe for clinic note documentation during this visit. I discussed the current management plan for hypertension and the importance of medication adherence. We reviewed the necessity of completing the Colon cancer screening due to the patient's overdue status. I emphasized lifestyle changes, including introducing a daily exercise routine to help manage cholesterol levels and improve overall health. The risks associated with neglecting these interventions, such as cardiovascular issues, were shared candidly, and I reminded the patient of the significance of routine monitoring of her chronic conditions. We also covered the potential implications of high cholesterol and hypertension on her health and the benefits of lifestyle alterations in conjunction with pharmacotherapy. The patient was receptive to continuing her current medications but requires follow-up to assess efficacy and adjustment if necessary. Orders: Orders Vitamin D 25-OH Total 4 Months E55.9 - Vitamin D deficiency, unspecified XR DEXA axial skeleton Today Z78.0 - Asymptomatic menopausal state Td State Immunization Today Z23 - Encounter for immunization Lipid Panel 4 Months E78.5 - Hyperlipidemia, unspecified Comprehensive [place]. Panel Fast 4 Months M17.11 - Unilateral primary oste oarthritis, right knee Referrals Open Access Screening Colonoscopy Referral Z12.12 - Encounter for screening for malignant neoplasm of rectum Patient Instructions: - Continue lisinopril and amlodipine for hypertension as prescribed. - Adhere to medication for cholesterol; monitor regularly and contact if significant side effects occur. - Complete colorectal cancer prevention. - Exercise for at least one hour daily to assist in managing cholesterol levels. - Maintain adherence to psychiatric medications for insomnia and depression. - Attend all prescribed follow-up appointments to evaluate treatment efficacy.
== END 2024-05-18 16:23 | disposition home or self-care (01) ==
PROVIDERS: PCP Internal Medicine; Visit Provider Internal Medicine
DX: Z00.00 Encounter for general adult medical examination without abnormal findings (principal); F33.1 Major depressive disorder, recurrent, moderate; Z23 Encounter for immunization

== ENCOUNTER → 2024-05-18 15:19 | Outpatient (BNVA) | payer OTHER, SELFPAY | PROVIDERS: PCP Internal Medicine; Visit Provider Internal Medicine | DX: Z00.00 Encounter for general adult medical examination without abnormal findings (principal); F33.1 Major depressive disorder, recurrent, moderate; E55.9 Vitamin D deficiency, unspecified; E78.5 Hyperlipidemia, unspecified; M17.11 Unilateral primary osteoarthritis, right knee; Z23 Encounter for immunization; Z78.0 Asymptomatic menopausal state; Z79.899 Other long term (current) drug therapy | CPT/HCPCS: 90471; 90714; 96127; 99396 ==

== ENCOUNTER → 2024-06-08 08:31 | Outpatient (BNVA) | payer OTHER, SELFPAY | PROVIDERS: PCP Internal Medicine | DX: Z01.818 Encounter for other preprocedural examination (principal) ==

== ENCOUNTER 2024-07-02 08:59 | Outpatient (AMB) | payer OTHER, SELFPAY ==
[2024-07-02 09:19] VITALS: BMI 33.5
--- NOTE | 2024-07-02 09:19 | MHC.OFFVIS ---
Vital Signs 07/02/24 09:19 Height 5 ft 2 in Weight 183 lb BMI 33.5 Intake Visit Reasons: Pre Op - right TKA 07/07/24 NE Intake Note: Nette is a 58 year old female who presents today for a pre op appointment for her right TKA 07/07/24 NE. Patient was given a pain management consent form. S Iron Worker Required: Yes S Iron Worker Services: S Iron Worker Present S Iron Worker Name: NATALYA Kay Accompanied by: son in law/ Izaiah Allergies Penicillins [PENICILLINS] Allergy (Intermediate, Verified 07/02/24 09:26) rash HPI HPI Pre Op - right TKA 07/07/24 NE: Details: Ms. Buddy Abbasi is a 58-year-old female who presents to the office today for preoperative history and physical appointment pending right total knee arthroplasty on 07/07/[address] Edwards. Patient denies any significant past medical history. She denies any heart or pulmonary problems. Denies any history of blood clots or bleeding disorders. She has had a history of prior surgeries as it has done well under anesthesia with no complications. [facility] Medical History (Updated 06/08/24 @ 12:12 by Nona Coley RN) Back pain Anemia Anxiety Depression Habitual snoring Sleep apnea Asthma COVID-19 Rheumatic fever HTN (hypertension) Cataract Moderate recurrent major depression Vertigo Insomnia GERD (gastroesophageal reflux disease) Constipation by delayed colonic transit Moderate asthma Pure hypercholesterolemia Essential hypertension Surgical History Hx of left cataract extraction History of esophagogastroduodenoscopy (EGD) History of right cataract extraction S/P myomectomy History of carpal tunnel release History of arthroscopy of right knee History of tubal ligation Family History Mother Leukemia FH: mental illness Family/Other CAD (coronary artery disease) Maternal Aunt Breast cancer Social History Housing: Apartment Are you a primary critical care physician to a significant other at home: No Do you presently have visiting nurse or other home services: Yes ([employer]) Alcohol intake: former Patient Tobacco Use Status: Former Tobacco user Tobacco use type: Cigarette e-Cigarette/Vaping Use: Never Used Second Hand Smoke Exposure: No service: No Current occupational status: unemployed Cognitive needs: No Hearing needs: No Vision needs: Yes (Glasses) Female Reproductive History Menstrual Age of Menarche: 7 Review of Systems Const All systems reviewed & are unremarkable except as noted in HPI and below Physical Exam Vital Signs: BMI result Body Mass Index 33.5 Const General: cooperative, healthy appearing, comfortable, no acute distress, well developed, alert and awake Orientation/consciousness: patient oriented x3 HEENT Head: Yes normal to inspection, Yes normocephalic and Yes atraumatic Eyes General: appearance normal, both eyes and all related structures Neck Neck: Yes normal visual inspection and Yes no lymphadenopathy Resp Effort & Inspection: normal respiratory effort and able to speak in complete sentences Cardio Rate: regular rate Peripheral pulses: Peripheral pulses 2+ throughout GI Inspection: Yes normal to inspection Skin General skin exam: no rashes or lesions noted Neuro General: patient oriented x3 Extrem Other: Antalgic gait Tender on an and 20 degrees of motion Moderate varus malalignment Effusion +1 Tenderness to palpation medial compartment Psych Mental Status: mental status grossly normal Quality Reporting (2019) Adult ([facility] 138/07/04/68) Smoking risk assessment performed?: Yes Patient Tobacco Use Status: Former Tobacco user Assessment & Plan Assessment & Plan (1) Osteoarthritis of right knee: Code(s): M17.11 - Unilateral primary osteoarthritis, right knee Category: Medical Plan I discussed in detail the procedure and what to expect pre and post operatively. We discussed the risks, benefits and alternatives to the surgery as well as the rehabilitation course. The risks; which include, but are not limited to infection, bleeding, nerve injury, ongoing pain, swelling, and stiffness, perioperative risk of injury to bones and soft tissues, and blood clots. I?ve answered all questions and with their understanding they have consented to move forward with right total knee arthroplasty with Dr. Edwards PCN Allergy Orders: Orders XR knee LT 1V Today M25.569 - Pain in unspecified knee XR knee RT 3V Today M25.569 - Pain in unspecified knee PT Evaluation and Treatment Today Z96.651 - Presence of right artificial knee joint Coding Level of Care Code Global (76278) Diagnoses Osteoarthritis of right knee M17.11
== END 2024-07-02 10:29 | disposition home or self-care (01) ==
PROVIDERS: PCP Internal Medicine; Visit Provider Physician Assistant
DX: M17.11 Unilateral primary osteoarthritis, right knee (principal)
CPT/HCPCS: 99024

== ENCOUNTER → 2024-07-02 09:17 | Outpatient (BNV) | payer OTHER, SELFPAY | PROVIDERS: Visit Provider Radiology Diagnostic Radiology | DX: M25.561 Pain in right knee (principal) | CPT/HCPCS: 73562 ==

== ENCOUNTER 2024-07-02 10:25 | Outpatient (REF) | payer OTHER, SELFPAY ==
--- NOTE | ~2024-07-02 | XR_ITS ---
EXAMINATION: XR KNEE, RIGHT CLINICAL INFORMATION: M25.569 - Pain in unspecified knee COMPARISON: January 08, 2024. TECHNIQUE: Three views of the right knee. FINDINGS: There is sclerosis and the articular surface of the femoral condyles and tibial plateau both kidneys. Marginal osteophyte formation involving the femoral condyles and to a lesser extent tibial plateaus both knees. Asymmetric joint space narrowing involving mostly the medial compartment on the right knee and to a lesser extent medial compartment of the left knee. There is joint space narrowing involving the patellofemoral joint. No suprapatellar bursa joint effusion. No acute cortical disruption or malalignment. No lytic or blastic lesions. XR/XR knee RT 3V IMPRESSION: Tricompartmental osteoarthrosis involving mostly the medial compartment of the right knee. Bicompartmental osteoarthrosis, left knee. Electronically signed by: Garry Jean MD 07/02/2024 02:38 PM EST
== END 2024-07-02 10:26 | disposition home or self-care (01) ==
LOC: HO.HOSX 10:25
PROVIDERS: Visit Provider Physician Assistant
DX: M25.561 Pain in right knee (principal); M17.11 Unilateral primary osteoarthritis, right knee
CPT/HCPCS: 73562; 99212

== ENCOUNTER 2024-07-07 06:52 | Day surgery (SDC) | payer OTHER, SELFPAY ==
[2024-06-08 12:32] VITALS: BP 120/58; PULSE 56; RESP 16; O2SAT 96; BMI 35.7
--- NOTE | 2024-06-08 12:53 | P.CONAN_ITS ---
Documented by User: Marisela Cordoba NP 06/08/24 13:09 HPI - Anesthesia Eval Consult details Narrative: 58yo F for Right Knee Replacement Total, 07/07/24 Optimized per PCP No recent illness No CP/SOB within limits of pain ANUPAMA: No CPAP for many years Asthma: Stable Vertigo: Meclizine prn GERD: ppi controls PMFSH Active Problems Active Problems: All Active Problems COVID (Acute) Osteoarthritis of right knee (Acute) Fibromyalgia (Acute) Skin lesion (Acute) Neck pain (Acute) Right knee pain (Acute) Physical exam (Acute) Osteoarthritis of right acromioclavicular joint (Acute) Tendinitis of right rotator cuff (Acute) Right shoulder pain (Acute) Well woman exam (Acute) Bilateral shoulder pain (Acute) Pre-op exam (Acute) Cognitive impairment (Acute) Obesity (BMI 30-39.9) (Acute) Adult general medical exam (Acute) Screening for breast cancer (Acute) Cervical cancer screening (Acute) Screening for colon cancer (Acute) Lump of right breast (Acute) Moderate recurrent major depression (Acute) Vertigo (Acute) Insomnia (Acute) GERD (gastroesophageal reflux disease) (Acute) Constipation by delayed colonic transit (Acute) Moderate asthma (Acute) Pure hypercholesterolemia (Acute) Essential hypertension (Acute) Past Medical History Medical History Back pain Anemia Anxiety Depression Habitual snoring Sleep apnea Asthma COVID-19 Rheumatic fever HTN (hypertension) Cataract Moderate recurrent major depression Vertigo Insomnia GERD (gastroesophageal reflux disease) Constipation by delayed colonic transit Moderate asthma Pure hypercholesterolemia Essential hypertension Family History Family History Mother Leukemia FH: mental illness Family/Other CAD (coronary artery disease) Maternal Aunt Breast cancer Family history of problems with anesthesia: No Surgical History Surgical History Hx of left cataract extraction History of esophagogastroduodenoscopy (EGD) History of right cataract extraction S/P myomectomy History of carpal tunnel release History of arthroscopy of right knee History of tubal ligation History of Problems with Anesthesia: No Social History Social History Housing: Apartment Are you a primary point of care specialist to a significant other at home: No Do you presently have visiting nurse or other home services: Yes (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 If so, by whom?: No Are you DNR?: No Advance Directives: No Advance Directives Information Provided: Yes Advance Directives on File: No Recently lost weight without trying: No Eating poorly because of decreased appetite: No Nutrition Risks: No Nutritional Risk Patient : No : No Poor oral hygiene: No service: No Current occupational status: unemployed Cognitive needs: No Hearing needs: No Vision needs: Yes (Glasses) Meds Allergies Allergy/AdvReac Type Severity Reaction Status Date / Time Penicillins [PENICILLINS] Allergy Intermediate rash Verified 07/07/24 08:04 Home Medications ?Medication ?Instructions ?Recorded ?Confirmed ?Last Taken ?Type quetiapine 25 mg tablet 25 mg PO BEDTIME 05/09/23 07/07/24 Unknown History omeprazole 20 mg capsule,delayed 20 mg PO DAILY 06/08/24 07/07/24 Unknown History release Exam Height,Weight and Vital Signs: Height 5 ft Weight 83.007 kg Last Vital Signs Pulse 56 06/08/24 12:32 Resp 16 06/08/24 12:32 BP 120/58 L 06/08/24 12:32 Pulse Ox 96 06/08/24 12:32 O2 Del Method Room Air 06/08/24 12:32 Pertinent Lab Results Pertinent Lab Results: Laboratory Tests 02/12/24 05/14/24 11:51 10:03 WBC 7.1 Hgb 14.4 Hct 45.2 Plt Count 262 D Sodium 141 Potassium 3.7 Chloride 106 Carbon Dioxide 27 BUN 13 Creatinine 0.84 Narrative Narrative: EKG 05/2024 Vent. Rate : 058 BPM Atrial Rate : 058 BPM P-R Int : 166 ms QRS Dur : 090 ms QT Int : 432 ms P-R-T Axes : 005 -02 037 degrees QTc Int : 424 ms Sinus bradycardia Otherwise normal ECG When compared with ECG of 12-FEB-2024 10:50, Vent. rate has decreased BY 37 BPM Airway Mallampati Class: III TM Dist: >3cm Neck ROM: Full Loose/Missing/Broken Teeth: No Heart: RRR Lungs: CTAB Assessment and Plan Assessment Anesthesia Assessment: Anesthesia Plan Discussed and PAT Visit Final Anesthetic Review Family History of Problems with Anesthesia: No History of Problems with Anesthesia: No Documented by User: Lorie Solo MD 07/07/24 09:17 [facility] Past Medical History Medical History Back pain Anemia Anxiety Depression Habitual snoring Sleep apnea Asthma COVID-19 Rheumatic fever HTN (hypertension) Cataract Moderate recurrent major depression Vertigo Insomnia GERD (gastroesophageal reflux disease) Constipation by delayed colonic transit Moderate asthma Pure hypercholesterolemia Essential hypertension Family History Family History Mother Leukemia FH: mental illness Family/Other CAD (coronary artery disease) Maternal Aunt Breast cancer Surgical History Surgical History Hx of left cataract extraction History of esophagogastroduodenoscopy (EGD) History of right cataract extraction S/P myomectomy History of carpal tunnel release History of arthroscopy of right knee History of tubal ligation Social History Social History Housing: Apartment Are you a primary point of care specialist to a significant other at home: No Do you presently have visiting nurse or other home services: Yes (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 If so, by whom?: No Are you DNR?: No Advance Directives: No Advance Directives Information Provided: Yes Advance Directives on File: No Recently lost weight without trying: No Eating poorly because of decreased appetite: No Nutrition Risks: No Nutritional Risk Patient : No : No Poor oral hygiene: No service: No Current occupational status: unemployed Cognitive needs: No Hearing needs: No Vision needs: Yes (Glasses) Meds Allergies Allergy/AdvReac Type Severity Reaction Status Date / Time Penicillins [PENICILLINS] Allergy Intermediate rash Verified 07/07/24 08:04 Home Medications ?Medication ?Instructions ?Recorded ?Confirmed ?Last Taken ?Type quetiapine 25 mg tablet 25 mg PO BEDTIME 05/09/23 07/07/24 Unknown History omeprazole 20 mg capsule,delayed 20 mg PO DAILY 06/08/24 07/07/24 Unknown His tory release Assessment and Plan Assessment Anesthesia Assessment: Chart Reviewed Final Anesthetic Review NPO: Yes ASA Class: III Final Preanesthetic Review: No Changes in Pt Med Stat, Meds/Allgs Chart Reviewed, Consent Obtained/Reviewed and Anes Risks/Benef Reviewed Patient Risk: Intermediate Procedure Risk: Intermediate Anesthetic Plan Anesthetic Plan: MAC:, Spinal and Regional Block Disposition: Standard PACU
[2024-06-08 14:51] LABS: MRSA Nasal PCR NEGATIVE (Negative); SA Nasal PCR NEGATIVE (Negative)
[2024-07-07] VITALS (10 sets, daily range): BP systolic 108–159; BP diastolic 51–77; PULSE 60–84; RESP 16–18; TEMP 36.2–36.7; O2SAT 92–98
--- NOTE | ~2024-07-07 | XR_ITS ---
EXAMINATION: XR KNEE, RIGHT CLINICAL INFORMATION: rt tka COMPARISON: 07/02/2024. TECHNIQUE: Two views of the right knee. FINDINGS: Prosthetic components of the total knee arthroplasty are appropriately aligned without periprosthetic fracture or abnormal lucency. No component migration. There is Intra-articular and subcutaneous gas. Ventral skin david along the midline. XR/XR knee RT 2V IMPRESSION: Post total right knee arthroplasty without complication. Electronically signed by: Timothy Ramirez MD 07/07/2024 11:56 AM [facility]
[2024-07-07] MEDS: Lactated Ringers 1,000 ML 100 ML IVCONT ×3 (07:50→22:27)
[2024-07-07 08:20] LABS: Hemoglobin 13.5 g/dl (12.0-16.0); Mean Corpuscular HGB Conc 33.8 g/dl (31.0-35.0); Mean Corpuscular Hemoglobin 28.7 pg (27.0-33.0); Mean Corpuscular Volume 84.9 fL (80.0-98.0); Mean Platelet Volume 9.7 fL (9.4-12.3); Platelet Count 188 X10*3/uL (160-400); Red Blood Count 4.71 X10*6/uL (4.20-5.50); Red Cell Distribution Width 12.9 % (11.0-16.0); White Blood Count 7.8 X10*3/uL (4.8-10.8)
[2024-07-07 08:27] LABS: Anion Gap 11 (12-20); Blood Urea Nitrogen 16 mg/dL (9-16); Calcium 9.2 mg/dL (8.4-10.2); Carbon Dioxide 27 mmol/L (22-29); Chloride 109 mmol/L (96-108); Creatinine Clr Calc Pharmacy 79.3; Estimated Glomerular Filt Rate > 60; Glucose Fasting 91 mg/dL (60-99); Potassium 4.3 mmol/L (3.3-5.1); Sodium 143 mmol/L (135-145)
--- NOTE | 2024-07-07 09:25 | MHC.SHP ---
Pre-Procedural Eval Section A - 24 Hr Update-Section A only Date of Service: 07/07/24 The patient is an INPATIENT: No Changes since office visit: No Cold of Flu in the past 2 weeks, No New Medical Problems, No Changes in Medication and No Patient answered all questions The patient has been examined within 24 hours of the surgical procedure. The History & Physical has been completed within 30 days and I have reviewed it.: Yes Section B - Complete if H&P > 30 days Chief Complaint: Unilateral primary osteoarthritis, right knee Allergies: Allergies Allergy/AdvReac Type Severity Reaction Status Date / Time Penicillins [PENICILLINS] Allergy Intermediate rash Verified 07/07/24 08:04 Plan I have reviewed the history and physical and performed a pertinent physical examination on my patient. No changes have occurred unless specified. Time Spent With Patient Time: Total time managing care of this patient today ____ minutes.
--- NOTE | 2024-07-07 09:50 | PC.NURSE ---
allergy/reaction reviewed with Dr. Edwards - stated ok to give ancef.
[2024-07-07] MEDS: ceFAZolin Sodium/Dextrose,Iso 2 GM/50 ML PIGGYBACK IV ×2 (10:01→15:50)
[2024-07-07] MEDS: Acetaminophen 1,000 MG/100 ML PIGGYBACK 400 MG IV (11:00)
--- NOTE | 2024-07-07 12:07 | P.BOP_ITS ---
Brief Operative Note Date of Service: 07/07/24 Pre-op diagnosis: Right knee OA Post-op diagnosis: same Procedure: RIght TKA Implants: Ankita triathlon 07/13/10a cemented PS Surgeon: Onur Edwards MD Anesthesia: MAC, regional and spinal Was an Girls Swimming Coach used for this Procedure?: Yes Girls Swimming Coach: Gayle Mendoza Estimated blood loss (mL): 50 Tourniquet time (min): 60 IV fluids (mL): 1,000 Pathology: other Condition: stable Disposition: PACU
--- NOTE | 2024-07-07 12:50 | PC.NURSE ---
Pt up from surgery, A&Ox3, no c/o pain at this time, no resp distress, call rodriguez within reach. +CMS to RLE.
[2024-07-07] MEDS: Cyclobenzaprine HCl 10 MG TABLET PO (14:13)
[2024-07-07] MEDS: oxyCODONE HCl Immed Release 5 MG TABLET PO ×2 (14:14→19:12)
--- NOTE | 2024-07-07 15:12 | P.DS_ITS ---
DS: Providers Provider Date of Service: 07/09/24 Date of discharge: 07/09/24 Primary care physician: Malika Sheets MD Consults: 07/07/24 12:49 Consult to Hospitalist Routine Comment: Consulting Provider: [facility] Reason For Exam: medical management DS: Summary Hospital Course Hospital Course: The patient underwent a successful right total knee arthroplasty, they were transferred to PACU and then to the floor to recover. During their stay, their vitals were stable, afebrile at 98.0. Labs were unremarkable, H/H 10.4/31.8. POD 1 they were started on Aspirin 325mg po bid for DVT ppx, they also received Physical Therapy services twice a day. Prior to discharge, their dressing was clean dry and intact, and the plan was to be discharged home with VNA services. Time Attestation Discharge Coordination Time (in mins): 30 Quality: Safe Use of Opioids Does Pt have an Active Cancer Diagnosis on the Problem List?: No Quality: Stroke Does the patient have a stroke diagnosis?: No Physical Exam Vital Signs: Vital Signs: Last Vital Signs Temp 97.1 F 07/07/24 12:51 Pulse 62 07/07/24 12:51 Resp 16 07/07/24 12:51 BP 135/66 07/07/24 12:51 Pulse Ox 96 07/07/24 12:51 O2 Del Method Room Air 07/07/24 12:51 O2 Flow Rate 6 07/07/24 11:28 BMI result Body Mass Index 35.7 Const: General: cooperative, healthy appearing and no acute distress Resp: Effort & Inspection: normal respiratory effort and able to speak in complete sentences Cardio: Rate: regular rate Peripheral pulses: Peripheral pulses 2+ throughout Skin: Lesions: no lesions Rashes: no rashes Extrem: Other: right knee dressing is c/d/i. Able to dorsi/plantar flex. Calf is supple and nontender. Sensation intact. Pedal pulse intact. DS: Data Data Completed and Pending Pending studies at discharge: Pending at discharge 07/07/24 10:33 Surgical [PTH] Routine Labs on day of discharge: Laboratory Results - last 24 hr 07/07/24 08:04 WBC 7.8 RBC 4.71 Hgb 13.5 Hct 40.0 MCV 84.9 MCH 28.7 MCHC 33.8 RDW 12.9 Plt Count 188 D MPV 9.7 Absolute Nucleated RBC 0.000 Nucleated RBC % (auto) 0.0 Sodium 143 Potassium 4.3 Chloride 109 H Carbon Dioxide 27 Anion Gap 11 L BUN 16 Creatinine 0.72 Estim Creat Clear Calc 79.3 Estimated GFR > 60 Fasting Glucose 91 Calcium 9.2 Discharge Plan Discharge Patient Disposition: Home Health Service Referrals: Gayle Mendoza PA-C [Physician Radiation Protection Engineer] - 07/23/24 2:45 pm Discharge Medications: New celecoxib 200 mg Capsule 200 mg PO BID 30 Days Qty: 60 0RF acetaminophen 325 mg Tablet 650 mg PO Q6H PRN (Reason: Pain, Mild 1-3,Fever,Headache) 30 Days Qty: 240 0RF aspirin 325 mg Tablet 325 mg PO BID 42 Days Qty: 84 0RF oxycodone 10 mg tablet 10 mg PO Q4H PRN (Reason: Pain, Moderate(Pain Scale 4-6)) 7 Days Qty: 42 0RF Rx Instructions: Partial Fill upon patient request. docusate sodium 100 mg Capsule 100 mg PO BID 30 Days Qty: 60 0RF Continued trazodone 50 mg tablet 75 mg PO BEDTIME 30 Days Qty: 45 2RF sertraline [Zoloft] 100 mg tablet 200 mg PO DAILY Qty: 60 0RF cholecalciferol (vitamin D3) 50 mcg (2,000 unit) capsule 50 mcg PO DAILY 90 Days Qty: 90 3RF sennosides-docusate sodium [Senna Plus] 8.6-50 mg tablet 1 tab-cap PO BEDTIME 90 Days Qty: 90 3RF albuterol sulfate 90 mcg/actuation HFA aerosol inhaler 1 puff PO Q4H PRN (Reason: bronchospasm) 30 Days Qty: 6.7 12RF Arnuity Ellipta 50 mcg/actuation blister with device 1 inh inhalation DAILY 30 Days Qty: 30 6RF lisinopril 40 mg tablet 40 mg PO DAILY Qty: 30 5RF cyclobenzaprine 10 mg tablet 10 mg PO TID PRN (Reason: for pain) Qty: 60 6RF meclizine 12.5 mg tablet 12.5 mg PO TID PRN (Reason: dizziness) 30 Days Qty: 90 5RF (MARYA) lev Cox See Rx Instructions .Route Qty: 1 0RF Rx Instructions: FOLDING FRONT WHEELED WALKER DURATION 99 DAYS atorvastatin 80 mg tablet 80 mg PO BEDTIME 90 Days Qty: 90 2RF fluticasone propionate 50 mcg/actuation spray,suspension 1 spray intranasal DAILY PRN (Reason: Allergy Symptoms) quetiapine 25 mg tablet 25 mg PO BEDTIME (DME) Shower Chair Misc See Rx Instructions .Route Qty: 1 0RF Rx Instructions: As directed amlodipine 2.5 mg tablet 2.5 mg PO DAILY 90 Days Qty: 90 1RF Discontinued acetaminophen 650 mg tablet extended release 1,300 mg PO Q8H PRN (Reason: pain) 30 Days Qty: 180 0RF Discharge Orders: Discharge Order (Routine); Ordered 07/09/24 Ordered By: Susanna Yan Diet: Advance to usual diet Activity on Discharge: Use cane or walker Activity Restrictions/Additional Instructions: Physical Therapy for ROM 0-120, quad strength, gait training. Use walker for ambulation Limit stair climbing, No shower, No tub bath, No driving Continue anticoagulant x 6 weeks Keep Aquacel dressing clean, dry and intact. Follow up with orthopedics in 2 weeks Print Language: Yoruba
--- NOTE | 2024-07-07 15:13 | P.F2F_ITS ---
Service Date Service Date: 07/07/24 Encounter Date of encounter: 07/08/24 Reasons for Services Signs and symptoms assessed: s/p rtka Pt. is considered homebound due to recent surgery. Unable to drive, poor balance, poor gait mechanics. Reason for physical therapy: home safety and mobility, therapeutic exercises, restore joint function, gait/transfer training and ADL training Homebound: Leaving the home is medically contraindicated at this time without the asist of a device and/or another person due th the listed conditions above and below. Reason homebound: unsteady gait / fall risk, leg weakness, pain with ambulation, poor balance / fall risk and unable to drive Certification: Based on the above findings, I certify that this patient is confined to the home and needs intermittent senior living care, physical therapy and/or speech therapy, or continues to need occupational therapy. The patient is under my care, and I have initiated the establishment of the plan of care. The patient will be followed by a physician who will periodically review the plan of care. Time Spent With Patient Time: Total time managing care of this patient today ____ minutes.
--- NOTE | 2024-07-07 15:33 | PHA.MEDREC ---
Addendum entered by Jean-Paul Munoz [facility] 07/07/24 15:47: med rec reviewed Original Note: Pharmacy Consult ? Medication Reconciliation Pharmacy has completed the medication reconciliation. Spoke with patient and family at bedside. She had a list of medications with her. According to patient and list she still takes lisinopril (last fill 09/2023) and Arnuity (12/2023). She takes quetiapine and senna-docusate scheduled, flonase is prn.
[2024-07-07] MEDS: HYDROmorphone HCl 0.5 MG/0.5 ML SYRINGE 0.25 MG IVPUSH ×2 (16:39→20:43)
[2024-07-07] MEDS: 0.9 % Sodium Chloride Flush 3 ML SYRINGE IVFLUSH (16:40)
--- NOTE | 2024-07-07 18:30 | HO.PM.IMCN ---
History of Present Illness Data of Consult Service Date: 07/07/24 Primary Care Provider: Malika Sheets MD HPI 58/F with HTN and other history as listed below who underwent elective right know arthroplasty on 07/06, asked to see for medical management. He has no acute medical complaint at this time. labs, vials, and med reviewed. Her home medication are all continueds. Review of Systems Review of Systems: Gen: no fever Resp: no sob, no cough CV: no chest, no LEDBETTER, no leg edema GI: No n/v, no abd pain Neuro: No confusion PMFSH Medical History Back pain Anemia Anxiety Depression Habitual snoring Sleep apnea Asthma COVID-19 Rheumatic fever HTN (hypertension) Cataract Moderate recurrent major depression Vertigo Insomnia GERD (gastroesophageal reflux disease) Constipation by delayed colonic transit Moderate asthma Pure hypercholesterolemia Essential hypertension Family History Mother Leukemia FH: mental illness Family/Other CAD (coronary artery disease) Maternal Aunt Breast cancer Surgical History Hx of left cataract extraction History of esophagogastroduodenoscopy (EGD) History of right cataract extraction S/P myomectomy History of carpal tunnel release History of arthroscopy of right knee History of tubal ligation Social History Household Members: None Housing: Apartment Are you a primary home health care worker to a significant other at home: No Do you presently have visiting nurse or other home services: Yes Alcohol intake: former Patient Tobacco Use Status: Former Tobacco user Tobacco use type: Cigarette e-Cigarette/Vaping Use: Never Used Second Hand Smoke Exposure: No Use of substances other than those prescribed or required for medical reasons: No Currently Displaying Signs/Symptoms of Drug Intoxication Withdrawal: No Have you been hit, kicked, punched, or otherwise hurt by someone within the past year? If so, by whom?: No Do you feel safe in your current relationship?: No Current Relationship Are you DNR?: No Advance Directives: No Advance Directives Information Provided: Yes Advance Directives on File: No Do you have a plan to hurt others: No Plan Recently lost weight without trying: No Eating poorly because of decreased appetite: No Nutrition Risks: No Nutritional Risk Patient : No : No Poor oral hygiene: No service: No Current occupational status: unemployed Cognitive needs: No Hearing needs: No Vision needs: Yes (Glasses) Meds Allergies Allergy/AdvReac Type Severity Reaction Status Date / Time Penicillins [PENICILLINS] Allergy Intermediate rash Verified 07/07/24 08:04 Active Medications: Current Medications Acetaminophen (Acetaminophen 325 Mg Tablet) 650 mg PO Q6H PRN PRN Reason: Pain, Mild 1-3,fever,headache Albuterol Sulfate (Albuterol Sulfate (0.083%) 2.5 Mg/3 Ml Vial.Neb) 2.5 mg INHALE ONCE PRN PRN Reason: Shortness of Breath/Wheezing Albuterol Sulfate (Albuterol Sulfate 90 Mcg 8 Gm Inhaler) 1 puff INHALE Q4H PRN PRN Reason: bronchospasm Aspirin (Aspirin 325 Mg Tablet) 325 mg PO BID [facility] Celecoxib (Celecoxib 200 Mg Capsule) 200 mg PO BID [facility] Cyclobenzaprine HCl (Cyclobenzaprine Hcl 10 Mg Tablet) 10 mg PO TID PRN PRN Reason: for pain Last Admin: 07/07/24 14:13 Dose: 10 mg Docusate Sodium (Docusate Sodium 100 Mg Capsule) 100 mg PO BID [facility] Fluticasone Propionate (Fluticasone Propionate Nasal 16 Gm [place]) 1 spray NOSTRIL-B DAILY [facility] Hydromorphone HCl (Hydromorphone Hcl 0.5 Mg/0.5 Ml Syringe) 0.25 mg IVPUSH Q4H PRN; Protocol PRN Reason: Pain, Severe (Pain Scale 7-10) Last Admin: 07/07/24 16:39 Dose: 0.25 mg Lactated Ringer's (Lr) 1,000 mls @ 100 mls/hr IVCONT .Q10H [facility] Last Admin: 07/07/24 13:12 Dose: 100 mls/hr Meclizine HCl (Meclizine Hcl 12.5 Mg Tablet) 12.5 mg PO TID PRN PRN Reason: dizziness Naloxone HCl (Naloxone Hcl 0.4 Mg/Ml Vial) 0.04 mg IVPUSH Q5M PRN PRN Reason: Excessive sedation or RR < 8 Non-Formulary Medication (Fluticasone Furoate [Arnuity Ellipta]) 1 inhalation INHALE RDAILY [facility] Omeprazole (Omeprazole 20 Mg Capsule.Dr) 20 mg PO DAILY@0630 [facility] Ondansetron HCl (Ondansetron Hcl 4 Mg/2 Ml Vial) 4 mg IVPUSH Q8H PRN PRN Reason: Nausea and Vomiting Oxycodone HCl (Oxycodone Hcl Immed Release 5 Mg Tablet) 5 mg PO Q4H PRN PRN Reason: Pain, Moderate(Pain Scale 4-6) Last Admin: 07/07/24 14:14 Dose: 5 mg Oxycodone HCl (Oxycodone Hcl Er 10 Mg Tab.Er.12h) 10 mg PO BID [facility] Quetiapine Fumarate (Quetiapine Fumarate 25 Mg Tablet) 25 mg PO BEDTIME [facility] Senna/Docusate Sodium (Sennosides/Docusate Sodium Tablet) 1 tab PO BEDTIME [facility] Sertraline HCl (Sertraline Hcl 100 Mg Tablet) 200 mg PO DAILY [facility] Sodium Chloride (0.9 % Sodium Chloride Flush 3 Ml Syringe) 3 ml IVFLUSH QSHIFT [facility] Stop: 07/08/24 08:00 Last Admin: 07/07/24 16:40 Dose: 3 ml Sucralfate (Sucralfate 1 Gm Tablet) 1 gm PO BID [facility] Trazodone HCl (Trazodone Hcl 25 Mg Halftab) 75 mg PO BEDTIME [facility] Home Medications ?Medication ?Instructions ?Recorded ?Confirmed ?Last Taken ?Type quetiapine 25 mg tablet 25 mg PO BEDTIME 05/09/23 07/07/24 Unknown History fluticasone propionate 50 1 spray intranasal DAILY PRN 07/07/24 07/07/24 Unknown History mcg/actuation nasal Allergy Symptoms spray,suspension Physical Exam Vital Signs and Narrative: Vital Signs: Last Vital Signs Temp 98.1 F 07/07/24 15:41 Pulse 83 07/07/24 15:41 Resp 18 07/07/24 15:41 BP 159/77 H 07/07/24 15:41 Pulse Ox 92 07/07/24 15:41 O2 Del Method Room Air 07/07/24 15:41 O2 Flow Rate 6 07/07/24 11:28 BMI result Body Mass Index 35.7 Const: Other: General: AO X 3, no acute distress Resp: CTA bilateral CVS: S1,S2,RRR GI: +BS, NT, no distention Skin: No rash Neuro: motor grossly intact Psych: appropriate affect Results Labs 07/07/24 08:04 07/07/24 08:04 Labs: Laboratory Results - last 24 hr 07/07/24 08:04 MCV 84.9 MCH 28.7 MCHC 33.8 RDW 12.9 Plt Count 188 D MPV 9.7 Absolute Nucleated RBC 0.000 Nucleated RBC % (auto) 0.0 Anion Gap 11 L Estim Creat Clear Calc 79.3 Estimated GFR > 60 Fasting Glucose 91 Calcium 9.2 Imaging Radiologist's Impressions: Impressions Knee X-Ray 07/07/24 11:35 IMPRESSION: Post total right knee arthroplasty without complication. Electronically signed by: Timothy Ramirez MD 07/07/2024 11:56 [place] [facility] [place] and Plan (1) Essential hypertension: Status: Acute Plan 58/F with HTN and other history as listed below who underwent elective right know arthroplasty on 07/06, doing well S/p R TKR managment per ortho HTN continue Lisinopril GERD omprazol Asthma no exacerbation continue home inhalers Anxiety/mood disorders continue home meds Given no acute medical issues, and stable on meds, will sign off
[2024-07-07] MEDS: Sucralfate 1 GM TABLET PO (20:42)
[2024-07-07] MEDS: oxyCODONE HCl ER 10 MG TAB.ER.12H PO (20:42)
[2024-07-07] MEDS: QUEtiapine Fumarate 25 MG TABLET PO (20:42)
[2024-07-07] MEDS: traZODone HCL 25 MG HALFTAB 75 MG PO (20:43)
[2024-07-07] MEDS: Docusate Sodium 100 MG CAPSULE PO (20:43)
[2024-07-07] MEDS: Celecoxib 200 MG CAPSULE PO (20:43)
[2024-07-07] MEDS: Sennosides/Docusate Sodium TABLET 1 TAB PO (20:43)
[2024-07-08 03:06] VITALS: BP 127/60; PULSE 64; RESP 16; TEMP 36.3; O2SAT 92
[2024-07-08] MEDS: Omeprazole 20 MG CAPSULE.DR PO (06:04)
[2024-07-08] MEDS: HYDROmorphone HCl 0.5 MG/0.5 ML SYRINGE 0.25 MG IVPUSH (06:09)
[2024-07-08 06:14] LABS: MANUAL DIFF FLAG NO
[2024-07-08 06:21] LABS: Basophils Percent Auto 0.1 % (0-2); Eosinophils Percent Auto 0.1 % (0-4); Hematocrit 36.6 % (37.0-47.0); Hemoglobin 12.2 g/dl (12.0-16.0); Imm Gran Abs Auto 0.04 X10*3/uL (0.00-0.03); Imm Gran Pct Auto 0.3 % (0.0-0.4); Lymphocytes Absolute Auto 1.1 X10*3/uL (1.2-4.9); Mean Corpuscular HGB Conc 33.3 g/dl (31.0-35.0); Mean Corpuscular Hemoglobin 28.6 pg (27.0-33.0); Mean Corpuscular Volume 85.9 fL (80.0-98.0); Mean Platelet Volume 9.9 fL (9.4-12.3); Monocytes Absolute Auto 0.9 X10*3/uL (0.1-1.2); Neutrophils Absolute Auto 9.7 x10*3/uL (2.0-8.3); Neutrophils Percent Auto 82.5 % (45-73); Platelet Count 203 X10*3/uL (160-400); Red Blood Count 4.26 X10*6/uL (4.20-5.50); Red Cell Distribution Width 13.2 % (11.0-16.0); White Blood Count 11.7 X10*3/uL (4.8-10.8)
[2024-07-08 06:49] LABS: Anion Gap 12 (12-20); Blood Urea Nitrogen 12 mg/dL (9-16); Calcium 8.7 mg/dL (8.4-10.2); Carbon Dioxide 25 mmol/L (22-29); Chloride 107 mmol/L (96-108); Creatinine Clr Calc Pharmacy 81.6; Estimated Glomerular Filt Rate > 60; Glucose Fasting 139 mg/dL (60-99); Potassium 4.7 mmol/L (3.3-5.1); Sodium 139 mmol/L (135-145)
[2024-07-08 07:24] VITALS: BP 140/75; PULSE 73; RESP 16; TEMP 36.6; O2SAT 93
--- NOTE | 2024-07-08 07:36 | PM.PNORT ---
Subjective Subjective Date of Service: 07/08/24 Interval history: POD1 s/p RTKA Patient is resting in bed reports pain No overnight events Pain is NOT managed No additional complaints Physical Exam Vital Signs: Vital Signs: Last Vital Signs Temp 97.9 F 07/08/24 07:24 Pulse 73 07/08/24 07:24 Resp 16 07/08/24 07:24 BP 140/75 H 07/08/24 07:24 Pulse Ox 93 07/08/24 07:24 O2 Del Method Room Air 07/08/24 07:24 O2 Flow Rate 6 07/07/24 11:28 BMI result Body Mass Index 35.7 Const: General: cooperative, healthy appearing and no acute distress Resp: Effort & Inspection: normal respiratory effort and able to speak in complete sentences Cardio: Rate: regular rate Peripheral pulses: Peripheral pulses 2+ throughout GI: Palpation (GI): Soft to palpation Skin: Lesions: no lesions Rashes: no rashes Extrem: Other: rt knee dressing is c/d/i. Able to dorsi/plantar flex. Calf is supple and nontender. Sensation intact. Pedal pulse intact. Procedures Date of Service Date of Service: 07/08/24 Progress Note: A&P Assessment and plan (1) Status post total knee replacement, right: Status: Acute Plan Continue pain mgmnt Begin ASA for dvt ppx begin PT for RTKA - WBAT Pain medication adjusted accordingly Dispo planning-Pending PT eval, pain mgmnt Time Spent With Patient Time: Total time managing care of this patient today ____ minutes. Quality Stroke Does the patient have a stroke diagnosis?: No VTE Prior VTE?: No VTE Risk Level:: Medical - moderate - high VTE Device Contraindication: N/A - Device Ordered VTE Drug Contraindication: N/A - Med Ordered
[2024-07-08] MEDS: oxyCODONE HCl Immed Release 5 MG TABLET 10 MG PO ×4 (07:42→21:53)
--- NOTE | 2024-07-08 08:21 | HO.POSTANES ---
Post Anesthesia Evaluation Post Anesthesia Evaluation Date of Service: 07/08/24 Vital Signs: Vital Signs Temp Pulse Resp BP Pulse Ox O2 Del Method 07/08/24 07:24 97.9 F 73 16 140/75 H 93 Room Air 07/08/24 03:06 97.3 F 64 16 127/60 92 Room Air Anesthesia: Spinal Mental Status: Awake Pain Control: Satisfactory Nausea/Vomiting: None Hydration: Adequate Anesthesia-Related Issues: No Anes. Related Issues
[2024-07-08] MEDS: Aspirin 325 MG TABLET PO ×2 (08:57→20:03)
[2024-07-08] MEDS: Fluticasone Propionate Nasal 16 GM SPRAY 1 SPRAY NOSTRIL-B (08:59)
[2024-07-08] MEDS: oxyCODONE HCl ER 10 MG TAB.ER.12H PO ×2 (08:59→20:04)
[2024-07-08] MEDS: Docusate Sodium 100 MG CAPSULE PO ×2 (08:59→20:03)
[2024-07-08] MEDS: Celecoxib 200 MG CAPSULE PO ×2 (08:59→20:02)
[2024-07-08] MEDS: Sucralfate 1 GM TABLET PO ×2 (08:59→20:03)
[2024-07-08] MEDS: Sertraline HCL 100 MG TABLET 200 MG PO (08:59)
[2024-07-08] MEDS: 0.9 % Sodium Chloride Flush 3 ML SYRINGE IVFLUSH (09:01)
[2024-07-08] MEDS: Lactated Ringers 1,000 ML 100 ML IVCONT ×2 (09:03→21:52)
--- NOTE | 2024-07-08 09:57 | MHC.CM.PN ---
PT NATHANIEL ALONE HER DGTERS ASSIST NEEDED PT WILL BE DCD WITH [facility] SHE HAS A RIDE HOME
--- NOTE | 2024-07-08 11:33 | W.PM.OPN ---
Operative Note Operative Note Date of Service: 07/07/24 Narrative: Date of Service: 07/07/24 Pre-op diagnosis: Right knee OA Post-op diagnosis: same Procedure: RIght TKA Implants: [place] triathlon 07/13/10a cemented PS Surgeon: Onur Edwards MD Anesthesia: MAC, regional and spinal Was an Graduate Research Assistant used for this Procedure?: Yes Graduate Research Assistant: Gayle Mendoza Estimated blood loss (mL): 50 Tourniquet time (min): 60 IV fluids (mL): 1,000 Pathology: other Condition: stable Disposition: PACU Procedure in detail: The patient was brought to the operating room and prepped and draped in standard sterile fashion. A time-out was called to identify proper site proper procedure proper surgeon and IV antibiotics were administered. 1 g of IV tranexamic acid was administered. I began by making a midline incision to the retinaculum and performed a medial parapatellar arthrotomy. The patella was translated laterally and the knee was flexed up. The medail compartment was eburnated. I performed a small medial peel and resected the infrapatellar fat pad. [place]'s line was then used to drill my intramedullary femoral guide and my distal femur cut of 14mm was made in 5 degrees of valgus while protecting the soft tissues. I then measured a # 3 femur and placed my 3 deg ER cutting guide and made my anterior posterior and chamfer cuts protecting the soft tissues at all times. I then made my box but removing the PCL. Once I was satisfied with my cuts I turned my attention to the tibia. I removed the meniscus medially and laterally and , using an external alignment guide, in line with the tibial crest and the third ray, I made my distal tibial cut in 0 deg slope of while protecting the posterior soft tissues at all times. An extension block was used to confirm appropriate amount of bony resection. I then sized a #3 tibia and once I was satisfied that there was complete tibial coverage I placed my trial and with the trial femur in place took the knee through range of motion. I was satisfied with the extension and flexion as well as the balance at 0, 30 and 90 degrees. I then turned my attention to the patella where I removed 1 cm from the undersurface of the patella and then trialed a 29a patellar button. Again the knee was taken through range of motion I was satisfied with the tracking. I then prepared the tibia with a drill and punch. A femoral bone plug was placed and the knee was irrigated copiously. I then cemented the patella, tibia and femur in standard fashion. Axial compression and a clamp were used while the cement dried. Once the cement was hard on the back table all excess cement was removed and I trialed different inserts until I selected a #11 insert. The final insert was placed and local TXA was administered. The knee was then closed with a running Quill suture, a 3 0 Vicryl and david on the skin. Patient was then placed in sterile dressing and brought to recovery room in stable condition there were no known complications.
[2024-07-08 12:00] VITALS: BP 131/61; PULSE 66; RESP 16; TEMP 37; O2SAT 93
[2024-07-08] MEDS: Cyclobenzaprine HCl 10 MG TABLET PO (13:11)
[2024-07-08 15:40] VITALS: BP 142/65; PULSE 80; RESP 16; TEMP 36.3; O2SAT 92
[2024-07-08 19:28] VITALS: BP 140/84; PULSE 91; RESP 17; TEMP 36; O2SAT 92
[2024-07-08] MEDS: Sennosides/Docusate Sodium TABLET 1 TAB PO (20:03)
[2024-07-08] MEDS: QUEtiapine Fumarate 25 MG TABLET PO (20:03)
[2024-07-08] MEDS: traZODone HCL 25 MG HALFTAB 75 MG PO (20:03)
[2024-07-08 23:14] VITALS: BP 130/63; PULSE 83; RESP 17; TEMP 36.5; O2SAT 94
[2024-07-09] MEDS: oxyCODONE HCl Immed Release 5 MG TABLET 10 MG PO ×2 (02:05→05:56)
[2024-07-09 03:10] VITALS: BP 109/54; PULSE 78; RESP 18; TEMP 36.4; O2SAT 94
[2024-07-09 05:51] LABS: MANUAL DIFF FLAG NO
[2024-07-09] MEDS: Omeprazole 20 MG CAPSULE.DR PO (05:57)
[2024-07-09 06:17] LABS: Basophils Percent Auto 0.3 % (0-2); Eosinophils Absolute Auto 0.2 X10*3/uL (0.0-0.4); Eosinophils Percent Auto 1.9 % (0-4); Hematocrit 31.8 % (37.0-47.0); Hemoglobin 10.4 g/dl (12.0-16.0); Imm Gran Abs Auto 0.07 X10*3/uL (0.00-0.03); Imm Gran Pct Auto 0.8 % (0.0-0.4); Lymphocytes Absolute Auto 2.1 X10*3/uL (1.2-4.9); Lymphocytes Percent Auto 23.5 % (20-40); Mean Corpuscular HGB Conc 32.7 g/dl (31.0-35.0); Mean Corpuscular Hemoglobin 28.5 pg (27.0-33.0); Mean Corpuscular Volume 87.1 fL (80.0-98.0); Monocytes Absolute Auto 0.6 X10*3/uL (0.1-1.2); Monocytes Percent Auto 7.2 % (2-11); Neutrophils Absolute Auto 5.9 x10*3/uL (2.0-8.3); Neutrophils Percent Auto 66.3 % (45-73); Platelet Count 153 X10*3/uL (160-400); Red Blood Count 3.65 X10*6/uL (4.20-5.50); Red Cell Distribution Width 13.6 % (11.0-16.0); White Blood Count 8.9 X10*3/uL (4.8-10.8)
[2024-07-09 06:21] LABS: Anion Gap 8 (12-20); Blood Urea Nitrogen 17 mg/dL (9-16); Calcium 8.2 mg/dL (8.4-10.2); Carbon Dioxide 27 mmol/L (22-29); Chloride 108 mmol/L (96-108); Creatinine Clr Calc Pharmacy 92.1; Estimated Glomerular Filt Rate > 60; Glucose Fasting 96 mg/dL (60-99); Potassium 4.2 mmol/L (3.3-5.1); Sodium 139 mmol/L (135-145)
[2024-07-09 07:10] VITALS: BP 118/57; PULSE 76; RESP 14; TEMP 36.7; O2SAT 94
[2024-07-09] MEDS: Docusate Sodium 100 MG CAPSULE PO (08:19)
[2024-07-09] MEDS: Celecoxib 200 MG CAPSULE PO (08:19)
[2024-07-09] MEDS: Aspirin 325 MG TABLET PO (08:20)
[2024-07-09] MEDS: Fluticasone Propionate Nasal 16 GM SPRAY 1 SPRAY NOSTRIL-B (08:22)
[2024-07-09] MEDS: HYDROmorphone HCl 0.5 MG/0.5 ML SYRINGE IVPUSH (08:31)
--- NOTE | 2024-07-09 09:24 | MHC.CM.PN ---
PT TO DC HOME TODAY WITH [facility] VIA PRIVATE TRANSPORT
[2024-07-09] MEDS: Sucralfate 1 GM TABLET PO (09:34)
[2024-07-09] MEDS: Sertraline HCL 100 MG TABLET 200 MG PO (09:34)
[2024-07-09] MEDS: oxyCODONE HCl ER 10 MG TAB.ER.12H PO (09:34)
[2024-07-09 11:34] VITALS: BP 97/51; PULSE 74; RESP 16; TEMP 36.6; O2SAT 96
== END 2024-07-09 13:46 | disposition home health service (06) ==
LOC: HO.SSS 06:53 → HO.S3 12:23
PROVIDERS: Nurse Practitioner; Physician Assistant; PCP Internal Medicine; Visit Provider Orthopaedic Surgery
PROC: (CPT 27447; principal; 2024-07-07 09:50)
DX: M17.11 Unilateral primary osteoarthritis, right knee (principal); G89.18 Other acute postprocedural pain; I10 Essential (primary) hypertension; E78.00 Pure hypercholesterolemia, unspecified; J45.909 Unspecified asthma, uncomplicated; K21.9 Gastro-esophageal reflux disease without esophagitis; F41.8 Other specified anxiety disorders; Z79.51 Long term (current) use of inhaled steroids; Z79.899 Other long term (current) drug therapy; Z88.0 Allergy status to penicillin; Z56.0 Unemployment, unspecified; Z87.891 Personal history of nicotine dependence; Z98.890 Other specified postprocedural states
CPT/HCPCS: 27447; 36415; 73560; 80048; 85014; 85018; 85025; 85027; 86850; 86900; 86901; 87640; 87641; 88304; 88305; 88311; 97110; 97116; 97162; 97530; C1713; C1776; J0131; J0665; J0690; J1100; J1171; J2003; J2250; J2405; J2704; J7120

== ENCOUNTER → 2024-07-07 06:52 | Outpatient (BNV) | payer OTHER, SELFPAY | PROVIDERS: PCP Internal Medicine; Visit Provider Orthopaedic Surgery | DX: Z96.651 Presence of right artificial knee joint (principal) | CPT/HCPCS: 27447; 99024 ==

== ENCOUNTER → 2024-07-07 06:52 | Outpatient (BNV) | payer OTHER, SELFPAY | PROVIDERS: PCP Internal Medicine; Visit Provider Internal Medicine | DX: I10 Essential (primary) hypertension (principal) | CPT/HCPCS: 99222 ==

== ENCOUNTER → 2024-07-07 11:28 | Outpatient (BNV) | payer OTHER, SELFPAY | PROVIDERS: PCP Internal Medicine; Visit Provider Radiology Diagnostic Radiology | DX: M17.11 Unilateral primary osteoarthritis, right knee (principal) | CPT/HCPCS: 73560 ==

== ENCOUNTER 2024-07-23 14:04 | Outpatient (AMB) | payer OTHER, SELFPAY ==
--- NOTE | 2024-07-23 14:12 | A.OFFVIS_ITS ---
Vital Signs 07/23/24 14:15 Height 5 ft Intake Visit Reasons: 2WK PO: R TKA w/NE 07/07/24 Intake Note: Nette is a 58 year old female who presents today for her first post operative appointment about 2 weeks s/p Right Total Knee Arthroplasty 07/07/2024. States she is doing well and has had very little to no pain. Allergies Penicillins [PENICILLINS] Allergy (Intermediate, Verified 07/23/24 14:14) rash Medication List - Last Reconciled 07/23/24 by Gayle Mendoza PA-C acetaminophen 650 mg (2 x 325 mg) PO Q6H PRN 30 days albuterol sulfate 90 mcg/actuation 1 puff PO Q4H PRN 30 days amlodipine 2.5 mg PO DAILY 90 days aspirin 325 mg PO BID 42 days atorvastatin 80 mg PO BEDTIME 90 days celecoxib 200 mg PO BID 30 days cholecalciferol (vitamin D3) 50 mcg PO DAILY 90 days commode (bedside commode) As directed cyclobenzaprine 10 mg PO TID PRN docusate sodium 100 mg PO BID 30 days fluticasone furoate 50 mcg/actuation (Arnuity Ellipta) 1 inh inhalation DAILY 30 days fluticasone propionate 50 mcg/actuation 1 spray intranasal DAILY PRN lisinopril 40 mg PO DAILY meclizine 12.5 mg PO TID PRN 30 days oxycodone 10 mg PO Q4H PRN 7 days quetiapine 25 mg PO BEDTIME sennosides-docusate sodium 8.6-50 mg (Senna Plus) 1 tab-cap PO BEDTIME 90 days sertraline (Zoloft) 200 mg (2 x 100 mg) PO DAILY Shower Chair As directed trazodone 75 mg (1.5 x 50 mg) PO BEDTIME 30 days walker FOLDING FRONT WHEELED WALKER DURATION 99 DAYS HPI HPI 2WK PO: R TKA w/NE 07/07/24: Details: 58-year-old female returns to the office today 2 weeks status post right total knee arthroplasty on 07/07/[address] Edwards. She continues to work with home therapy and will be discharged tomorrow. She is transitioning to outpatient physical therapy and is tolerating her pain well with no concerns today. [facility] Medical History Back pain Anemia Anxiety Depression Habitual snoring Sleep apnea Asthma COVID-19 Rheumatic fever HTN (hypertension) Cataract Moderate recurrent major depression Vertigo Insomnia GERD (gastroesophageal reflux disease) Constipation by delayed colonic transit Moderate asthma Pure hypercholesterolemia Essential hypertension Surgical History Hx of left cataract extraction History of esophagogastroduodenoscopy (EGD) History of right cataract extraction S/P myomectomy History of carpal tunnel release History of arthroscopy of right knee History of tubal ligation Family History Mother Leukemia FH: mental illness Family/Other CAD (coronary artery disease) Maternal Aunt Breast cancer Social History Household Members: None Housing: Apartment Are you a primary career development manager to a significant other at home: No Do you presently have visiting nurse or other home services: Yes Alcohol intake: former Patient Tobacco Use Status: Former Tobacco user Tobacco use type: Cigarette e-Cigarette/Vaping Use: Never Used Second Hand Smoke Exposure: No service: No Current occupational status: unemployed Cognitive needs: No Hearing needs: No Vision needs: Yes (Glasses) Female Reproductive History Menstrual Age of Menarche: 7 Review of Systems Const All systems reviewed & are unremarkable except as noted in HPI and below Physical Exam Extrem Other: Right knee incision clean dry and intact. No erythema no joint effusion. Range of motion 0-95 degrees. She has good activation of her quad muscle with straight leg raise. Calf supple nontender neurovascularly intact. Quality Reporting (2020) Adult ([facility] 138/07/04/68) Smoking risk assessment performed?: Yes Patient Tobacco Use Status: Former Tobacco user Assessment & Plan Assessment & Plan (1) Status post total knee replacement, right: Code(s): Z96.651 - Presence of right artificial knee joint Category: Surgical Plan: [place] removed today Steri-Strips applied. She will transition to outpatient physical therapy to work on range of motion and quad strengthening exercises. She will continue with her anticoagulant therapy for another 4 weeks. She will see us back in 4 weeks, sooner if needed. Coding Level of Care Code Global (43363) Diagnoses Status post total knee replacement, right Z96.651
== END 2024-07-23 14:25 | disposition home or self-care (01) ==
LOC: HO.HOS 14:05
PROVIDERS: PCP Internal Medicine; Visit Provider Physician Assistant
DX: Z96.651 Presence of right artificial knee joint (principal)
CPT/HCPCS: 99024

== ENCOUNTER → 2024-07-23 14:04 | Outpatient (BNVA) | payer OTHER, SELFPAY | PROVIDERS: PCP Internal Medicine; Visit Provider Physician Assistant | DX: Z47.1 Aftercare following joint replacement surgery (principal); Z96.651 Presence of right artificial knee joint | CPT/HCPCS: 99212 ==

== ENCOUNTER 2024-08-13 11:43 | Outpatient (REF) | payer OTHER, SELFPAY ==
--- NOTE | ~2024-08-13 | XR_ITS ---
EXAMINATION: XR KNEE, RIGHT CLINICAL INFORMATION: M25.561 - Pain in right knee COMPARISON: 07/07/2024, 07/02/2024, 01/08/2024. TECHNIQUE: AP view bilateral knees standing, lateral and patellofemoral views right knee. FINDINGS: Left Knee: No fracture or malalignment. No bone lesion. Mild to moderate bicompartmental osteoarthrosis. Spurring of the tibial spines. Normal soft tissues. Right Knee: There is been a total right knee arthroplasty. Femoral, and tibial components are intact, anatomically aligned, without periprosthetic fracture or loosening. There is been associated patellar resurfacing. The patella is intact and aligned. Skin david have been removed. There is persistent ventral soft tissue swelling and persistent joint effusion. XR/XR knee RT 3V IMPRESSION: 1. Right knee total arthroplasty without definite complication. Electronically signed by: Timothy Ramirez MD 08/14/2024 10:47 AM EDT
== END 2024-08-13 11:44 | disposition home or self-care (01) ==
LOC: HO.HOSX 11:43
PROVIDERS: Visit Provider Orthopaedic Surgery
DX: M25.561 Pain in right knee (principal); Z96.651 Presence of right artificial knee joint
CPT/HCPCS: 73562; 99212

== ENCOUNTER 2024-08-13 12:27 | Outpatient (AMB) | payer OTHER, SELFPAY ==
--- NOTE | 2024-08-13 12:32 | A.OFFVIS_ITS ---
Vital Signs 08/13/24 12:40 Height 5 ft Weight 180 lb BMI 35.2 Intake Visit Reasons: 6WK PO: R TKA w/NE 07/07/24 Intake Note: Nette is a 58 year old female who presents today for a post operative appointment about 6 weeks s/p Right Total Knee Arthroplasty 07/07/2024. Patient reports that she is having pain, usually this is managed by Tylenol but she does take the prescribed Oxycodone PRN if needed. Allergies Penicillins [PENICILLINS] Allergy (Intermediate, Verified 08/13/24 12:39) rash HPI HPI 6WK PO: R TKA w/NE 07/07/24: Details: Nette is a 58 year old female who presents today for a post operative appointment about 6 weeks s/p Right Total Knee Arthroplasty 07/07/2024. Patient reports that she is having pain, usually this is managed by Tylenol but she does take the prescribed Oxycodone PRN if needed. PFS Medical History Back pain Anemia Anxiety Depression Habitual snoring Sleep apnea Asthma COVID-19 Rheumatic fever HTN (hypertension) Cataract Moderate recurrent major depression Vertigo Insomnia GERD (gastroesophageal reflux disease) Constipation by delayed colonic transit Moderate asthma Pure hypercholesterolemia Essential hypertension Surgical History Hx of left cataract extraction History of esophagogastroduodenoscopy (EGD) History of right cataract extraction S/P myomectomy History of carpal tunnel release History of arthroscopy of right knee History of tubal ligation Family History Mother Leukemia FH: mental illness Family/Other CAD (coronary artery disease) Maternal Aunt Breast cancer Social History Household Members: None Housing: Apartment Are you a primary child care cook to a significant other at home: No Do you presently have visiting nurse or other home services: Yes Alcohol intake: former Patient Tobacco Use Status: Former Tobacco user Tobacco use type: Cigarette e-Cigarette/Vaping Use: Never Used Second Hand Smoke Exposure: No service: No Current occupational status: unemployed Cognitive needs: No Hearing needs: No Vision needs: Yes (Glasses) Female Reproductive History Menstrual Age of Menarche: 7 Physical Exam Vital Signs: BMI result Body Mass Index 35.2 Extrem Other: Incision clean dry and intact Range of motion 0-130 Using a cane to ambulate comfortably. Results Reviewed Results Reviewed: I personally reviewed relevant radiographs. Right total knee arthroplasty in expected post operative position with no hardwa re complications or evidence of loosening Assessment & Plan Assessment & Plan (1) Status post total knee replacement, right: Code(s): Z96.651 - Presence of right artificial knee joint Category: Surgical Plan: Nette is doing well status post knee replacement. She may continue continue physical therapy and DC her aspirin. Orders: Orders XR knee RT 3V Today M25.561 - Pain in right knee Coding Level of Care Code Global (73498) Diagnoses Status post total knee replacement, right Z96.651
[2024-08-13 12:40] VITALS: BMI 35.2
== END 2024-08-13 14:14 | disposition home or self-care (01) ==
LOC: HO.HOS 12:28
PROVIDERS: PCP Internal Medicine; Visit Provider Orthopaedic Surgery
DX: Z96.651 Presence of right artificial knee joint (principal)
CPT/HCPCS: 99024

== ENCOUNTER → 2024-08-13 12:30 | Outpatient (BNV) | payer OTHER, SELFPAY | PROVIDERS: Visit Provider Radiology Diagnostic Radiology | DX: M25.561 Pain in right knee (principal) | CPT/HCPCS: 73562 ==

== ENCOUNTER 2024-09-08 14:33 | Outpatient (RCR) | payer OTHER, SELFPAY ==
--- NOTE | 2024-07-31 16:42 | MHC.PT.EP ---
[facility] [place] [facility] [place] [facility] [place] [facility] [address] Ousmane Mccartney [address] [phone] F: [phone] F: [phone] F: [phone] F: [phone] Physical Therapy Plan of Care Date of Evaluation: 07/31/24 Date of Surgery: 07/07/24 Diagnosis: R TKR Assessment: Pt IS 70 YO F REFERRED TO PT FROM [facility] ([facility]) S/P R TKR ON 07/07/[address] PUCKETT. HAD HOME PT. PRESENTS WITH DECREASED R KNEE ROM AND ENDURANCE, LIMP WITH ST CANE, PAIN/INFLAMMATION AFFECTING ADLS. LIVES ALONE IN 3RD FLOOR APT (ELEVATOR). SHOULD BENEFIT FROM PT TO ADDRESS THESE ISSUES Frequency and Duration: The patient will be seen 2-1X/WK X 6 WKS Short Term Goals: 1. IMPROVED GT (LESS LIMP) WITH ST CANE OR NO AD 2. INCREASED AWARENESS KNEE CARE Raw Hide Trimmer Goals: 1. I HEP WITH DC EX PLAN 2. DECREASED R KNEE PAIN AT LEAST 50% WITH ADLS 3. INCREASED R KNEE ROM 0-125 4. DECREASED GIRTH MID PAT R X 1/2-1 INCH INCH Treatment Plan: Modalities to reduce pain, spasms and effusion. Manual therapy to restore motion and function. Therapeutic exercise to improve strength and flexibility. Neuromuscular re-education for posture and balance. Therapeutic activities to return to functional activities of daily living. Electronically signed by: AIRAM WEST PT Please sign and return to therapist. Thank you for your referral.
--- NOTE | 2024-12-23 08:44 | MHC.PT.DC ---
[facility] [place] Office [place] Office [place] Office [address] Ousmane Mccartney [address] [phone] F: [phone] F: [phone] F: [phone] F: [phone] Physical Therapy Discharge Report Diagnosis: R TKR Date of Surgery: 07/07/24 Date of Evaluation: 07/31/24 Date of Discharge: 12/23/24 Treatments to Date: 6 Cancellations to Date: No Shows to Date: Discharge Status: Independent with HEP Patient Elected to Stop Discharge Summary: PER ASSESSMENT FROM LAST NOTE ON 09/08 DOES NOT HAVE FULL KNEE EXT, CONTINUES WITH LIMITED FLEX BUT IS FUNCTIONAL Pt THEN NO SHOWED LAST SCHEDULED VISIT ON 09/15 WITHOUT FURTHER APPTS SCHEDULED. PER CHART, Pt SAW ORTHO ON 09/24 Electronically signed by: AIRAM WEST PT Please sign and return to therapist. Thank you for your referral.
== END 2024-12-23 08:45 | disposition home or self-care (01) ==
LOC: HO.PT 14:33
PROVIDERS: PCP Internal Medicine; Visit Provider Physician Assistant
DX: Z47.1 Aftercare following joint replacement surgery (principal); Z96.651 Presence of right artificial knee joint
CPT/HCPCS: 97110; 97140; 97162; 97535

== ENCOUNTER 2024-09-16 15:20 | Outpatient (AMB) | payer OTHER, SELFPAY ==
--- NOTE | 2024-09-16 15:24 | A.OFFPC_ITS ---
Vital Signs 09/16/24 15:25 Height 5 ft Weight 179 lb BMI 35.0 BP 112/78 Blood Pressure Location Lt brachial Position Sitting Intake Visit Reasons: bp Intake Note: Patient here for a follow up BP Deflector Operator Required: No Accompanied by: Daughter Allergies Penicillins [PENICILLINS] Allergy (Intermediate, Verified 09/16/24 16:07) rash Medication List - Last Reconciled 09/16/24 by Malika Sheets MD acetaminophen 650 mg (2 x 325 mg) PO Q6H PRN 30 days albuterol sulfate 90 mcg/actuation 1 puff PO Q4H PRN 30 days amlodipine 2.5 mg PO DAILY 90 days aspirin 325 mg PO BID 42 days atorvastatin 80 mg PO BEDTIME 90 days celecoxib 200 mg PO BID 30 days cholecalciferol (vitamin D3) 50 mcg PO DAILY 90 days commode (bedside commode) As directed cyclobenzaprine 10 mg PO TID PRN docusate sodium 100 mg PO BID 30 days fluticasone furoate 50 mcg/actuation (Arnuity Ellipta) 1 inh inhalation DAILY 30 days fluticasone propionate 50 mcg/actuation 1 spray intranasal DAILY PRN lisinopril 40 mg PO DAILY meclizine 12.5 mg PO TID PRN 30 days oxycodone 5 mg PO Q6H PRN 7 days quetiapine 25 mg PO BEDTIME sennosides-docusate sodium 8.6-50 mg (Senna Plus) 1 tab-cap PO BEDTIME 90 days sertraline (Zoloft) 200 mg (2 x 100 mg) PO DAILY Shower Chair As directed trazodone 75 mg (1.5 x 50 mg) PO BEDTIME 30 days walker FOLDING FRONT WHEELED WALKER DURATION 99 DAYS Tobacco use date assessed: 05/14/24 Dental Screening Dental Screen Date: 05/14/24 HPI HPI Comments History of Present Illness Details The patient is a 58-year-old female presenting for a follow-up related to her chronic medical conditions, including hypertension, managed with multiple antihypertensive medications. Her asthma is well-controlled with an albuterol inhaler and nasal spray. Depression is being managed with sertraline, and hyperlipidemia is treated with atorvastatin. She reports an allergy to penicillin. Her recent knee replacement surgery took place in June; she has shown improvement in mobility with therapy but still occasionally experiences pain and balance issues requiring the use of a cane. Dizziness is managed with meclizine, and constipation appears to be improving with Senna. [facility] Medical History (Updated 09/16/24 @ 20:15 by Malika Sheets MD) Back pain Anemia Anxiety Depression Habitual snoring Sleep apnea Asthma COVID-19 Rheumatic fever HTN (hypertension) Cataract Moderate recurrent major depression Vertigo Insomnia GERD (gastroesophageal reflux disease) Constipation by delayed colonic transit Moderate asthma Pure hypercholesterolemia Essential hypertension Surgical History History of total right knee replacement Hx of left cataract extraction History of esophagogastroduodenoscopy (EGD) History of right cataract extraction S/P myomectomy History of carpal tunnel release History of arthroscopy of right knee History of tubal ligation Family History Mother Leukemia FH: mental illness Family/Other CAD (coronary artery disease) Maternal Aunt Breast cancer Social History Household Members: None Housing: Apartment Are you a primary cattle care worker to a significant other at home: No Do you presently have visiting nurse or other home services: Yes Alcohol intake: former Patient Tobacco Use Status: Former Tobacco user Tobacco use type: Cigarette e-Cigarette/Vaping Use: Never Used Second Hand Smoke Exposure: No service: No Current occupational status: unemployed Cognitive needs: No Hearing needs: No Vision needs: Yes (Glasses) Female Reproductive History Menstrual Age of Menarche: 7 Questionnaire Thrive Questionnaire Date Thrive assessed: 05/18/24 I am a: Patient What is your living situation today?: I have a steady place to live Within the past 12 months, did the food you bought not last and you didn't have the money to get more?: I choose not to answer this question Within the past 12 months, did you worry whether your food would run out before you got money to buy more?: I choose not to answer this question Do you have trouble paying for medicines?: No Do you have trouble getting transportation to medical appointments?: No Do you have trouble paying your heating and electricity bill?: No Do you have trouble taking care of your child, family member or friend?: I choose not to answer this question Do you have trouble with day-to-day activities such as bathing, preparing meals, shopping, managing finances, etc.?: Yes Are you currently unemployed and looking for a job?: I choose not to answer this question Are you interested in more education?: I choose not to answer this question Please select the resources that you would like help with: None Currently or been in a relationship where the following occur: I choose not to answer THRIVE Score: 0 KHARI-7 AMB Questionnaire KHARI-7 Date KHARI - 7 assessed: 05/18/24 Source: Developed by Drs. Gavin Gr, Annita Luis, Chapincito Suresh and colleagues, with an educational susy from [employer]. Review of Systems Const All systems reviewed & are unremarkable except as noted in HPI and below ENT Denies change in voice, Denies nasal discharge and Denies sinus pain Card Denies chest pain at rest, Denies chest pain with activity, Denies edema, Denies irregular heart rhythm, Denies claudication, Denies dyspnea, Denies dyspnea on exertion, Denies orthopnea, Denies paroxysmal nocturnal dyspnea and Denies slow heart rate Resp Denies cough, Denies dyspnea and Denies dyspnea on exertion Musc Denies atrophy, Denies deformity and Denies limited range of motion Skin/Breast Denies bleeding lesions, Denies changing lesions and Denies rash Physical exam (Primary Care) Vital Signs: Last Vital Signs BP 112/78 09/16/24 15:25 BMI result Body Mass Index 35.0 BMI Assessment/Plan discussion: High BMI High, discussed plan: lifestyle, weight reduction, dietary and physical activity Tobacco/Smoking Status: Tobacco use Status Tobacco use date assessed 05/14/24 09/16/24 15:33 Patient Tobacco Use Status Former Tobacco user 09/16/24 15:33 Tobacco use type Cigarette 09/16/24 15:33 e-Cigarette/Vaping Use Never Used 09/16/24 15:33 Thrive Assessment: Date of Thrive Assessment Date Thrive assessed 05/18/24 09/16/24 15:33 Currently or been in a relationship where the following occur: I choose not to answer Const Limitations: ambulation with cane Resp Effort & Inspection: normal respiratory effort Auscultation: clear to auscultation bilaterally Cardio Jugular venous distension: no JVD Rate: regular rate Rhythm: regular rhythm Heart sounds: S1 normal heart sound present and S2 normal heart sound present Extrem General: Yes full ROM Coding Level of Care Code Est Pt Level 4 (13491) Complex EM visit Add On G2211 Diagnoses Moderate recurrent major depression F33.1 Gastroesophageal reflux disease, unspecified whether esophagitis present K21.9 Esophagitis presence: esophagitis presence not specified Constipation by delayed colonic transit K59.01 Moderate persistent asthma without complication J45.40 Asthma persistence: persistent Asthma complication type: uncomplicated Pure hypercholesterolemia E78.00 Essential hypertension I10 Time Spent (min) 23 Assessment & Plan Assessment & Plan (1) Moderate recurrent major depression: Code(s): F33.1 - Major depressive disorder, recurrent, moderate Category: Medical (2) GERD (gastroesophageal reflux disease): Code(s): K21.9 - Gastro-esophageal reflux disease without esophagitis Category: Medical Qualifiers: Esophagitis presence: esophagitis presence not specified Qualified Code(s): K21.9 - Gastro-esophageal reflux disease without esophagitis (3) Constipation by delayed colonic transit: Code(s): K59.01 - Slow transit constipation Category: Medical (4) Moderate asthma: Code(s): J45.909 - Unspecified asthma, uncomplicated Category: Medical Qualifiers: Asthma persistence: persistent Asthma complication type: uncomplicated Qualified Code(s): J45.40 - Moderate persistent asthma, uncomplicated (5) Pure hypercholesterolemia: Code(s): E78.00 - Pure hypercholesterolemia, unspecified Category: Medical (6) Essential hypertension: Code(s): I10 - Essential (primary) hypertension Category: Medical Plan The patient will continue current treatments for hypertension, asthma, depression, and hyperlipidemia, monitoring blood pressure and cholesterol levels at regular intervals. Asthma control will be maintained with prescribed inhalers, and depression with sertraline. Follow-up appointments will focus on evaluating progress of knee rehabilitation and balance improvement. A laboratory assessment for hyperlipidemia is scheduled in four months. Any concerns about k nee pain, balance, dizziness, or constipation should prompt revisiting management strategies or medication adjustments as necessary. Patient was informed and verbally consented to the use of an ambient scribe for clinic note documentation during this visit. We discussed the continuation of current management plans for hypertension, asthma, depression, and hyperlipidemia. The patient is reminded of the importance of adhering to prescribed medication regimens and attending follow-up appointments. The potential need for reassessment of medication efficacy and side effects was highlighted. The patient's physical therapy progress following knee replacement was reviewed, confirming plans for continued rehabilitation. The patient is advised to use the cane as needed for balance and to monitor for any complications. We also planned for a cholesterol evaluation in four months. Orders: Orders Lipid Panel 4 Months E78.5 - Hyperlipidemia, unspecified IRON PROFILE 4 Months D64.9 - Anemia, unspecified Vitamin B12 and Folate 4 Months E53.8 - Deficiency of other specified B group vitamins Vitamin D 25-OH Total 4 Months E55.9 - Vitamin D deficiency, unspecified Complete Blood Count Auto Diff 4 Months D64.9 - Anemia, unspecified Comprehensive [place]. Panel Fast 4 Months E78.00 - Pure hypercholesterolemia, unspecified Patient Instructions: - Continue taking all prescribed medications as directed. - Keep using the cane for support until advised otherwise. - Attend all physical therapy sessions for knee rehabilitation. - Monitor for any side effects or unusual symptoms from medications. - Return in four months for cholesterol testing. - Stay hydrated and maintain a balanced diet to prevent constipation. - Follow up with psychiatry as scheduled.
[2024-09-16 15:25] VITALS: BP 112/78; BMI 35.0
== END 2024-09-16 16:14 | disposition home or self-care (01) ==
LOC: HO.HMCH 15:21
PROVIDERS: PCP Internal Medicine; Visit Provider Internal Medicine
DX: F33.1 Major depressive disorder, recurrent, moderate (principal); K21.9 Gastro-esophageal reflux disease without esophagitis; K59.01 Slow transit constipation; J45.40 Moderate persistent asthma, uncomplicated; E78.00 Pure hypercholesterolemia, unspecified; I10 Essential (primary) hypertension

== ENCOUNTER → 2024-09-16 15:20 | Outpatient (BNVA) | payer OTHER, SELFPAY | PROVIDERS: PCP Internal Medicine; Visit Provider Internal Medicine | DX: F33.1 Major depressive disorder, recurrent, moderate (principal); K21.9 Gastro-esophageal reflux disease without esophagitis; K59.01 Slow transit constipation; J45.40 Moderate persistent asthma, uncomplicated; E78.00 Pure hypercholesterolemia, unspecified; I10 Essential (primary) hypertension | CPT/HCPCS: 99212 ==

== ENCOUNTER 2024-09-24 14:33 | Outpatient (AMB) | payer OTHER, SELFPAY ==
[2024-09-24 14:40] VITALS: BMI 35.0
--- NOTE | 2024-09-24 14:40 | MHC.OFFVIS ---
Vital Signs 09/24/24 14:40 Height 5 ft Weight 179 lb BMI 35.0 Intake Visit Reasons: PO- R TKA w/NE 07/07/24 Intake Note: Nette is a 58 year old female who presents today for a post operative visit s/p right kne TKA DOS 07/07/[address] Edwards. States she has good and bad days. Currently she is having mild pain, swelling and is limping due to discomfort. Allergies Penicillins [PENICILLINS] Allergy (Intermediate, Verified 09/16/24 16:07) rash HPI HPI PO- R TKA w/NE 07/07/24: Details: Nette is a 58 year old female who presents today for a post operative visit s/p right kne TKA DOS 07/07/[address] Edwards. States she has good and bad days. Currently she is having mild pain, swelling and is limping due to discomfort. [facility] Medical History Back pain Anemia Anxiety Depression Habitual snoring Sleep apnea Asthma COVID-19 Rheumatic fever HTN (hypertension) Cataract Moderate recurrent major depression Vertigo Insomnia GERD (gastroesophageal reflux disease) Constipation by delayed colonic transit Moderate asthma Pure hypercholesterolemia Essential hypertension Surgical History History of total right knee replacement Hx of left cataract extraction History of esophagogastroduodenoscopy (EGD) History of right cataract extraction S/P myomectomy History of carpal tunnel release History of arthroscopy of right knee History of tubal ligation Family History Mother Leukemia FH: mental illness Family/Other CAD (coronary artery disease) Maternal Aunt Breast cancer Social History Household Members: None Housing: Apartment Are you a primary human services care specialist to a significant other at home: No Do you presently have visiting nurse or other home services: Yes Alcohol intake: former Patient Tobacco Use Status: Former Tobacco user Tobacco use type: Cigarette e-Cigarette/Vaping Use: Never Used Second Hand Smoke Exposure: No service: No Current occupational status: unemployed Cognitive needs: No Hearing needs: No Vision needs: Yes (Glasses) Female Reproductive History Menstrual Age of Menarche: 7 Physical Exam Vital Signs: BMI result Body Mass Index 35.0 Extrem Other: inc c/d/i 0-125 deg stable to v/v stress DP+2 Assessment & Plan Assessment & Plan (1) Status post total knee replacement, right: Code(s): Z96.651 - Presence of right artificial knee joint Category: Surgical Plan: Doing well. F/u 9 mo Dental prophylaxis discussed Coding Level of Care Code Global (54700) Diagnoses Status post total knee replacement, right Z96.651
== END 2024-09-24 15:02 | disposition home or self-care (01) ==
LOC: HO.HOS 14:34
PROVIDERS: PCP Internal Medicine; Visit Provider Orthopaedic Surgery
DX: Z96.651 Presence of right artificial knee joint (principal)
CPT/HCPCS: 99024

== ENCOUNTER → 2024-09-24 14:33 | Outpatient (BNVA) | payer OTHER, SELFPAY | PROVIDERS: PCP Internal Medicine; Visit Provider Orthopaedic Surgery | DX: Z47.1 Aftercare following joint replacement surgery (principal); Z96.651 Presence of right artificial knee joint | CPT/HCPCS: 99212 ==

== ENCOUNTER 2025-01-21 15:12 | Outpatient (AMB) | payer OTHER, SELFPAY ==
[2025-01-21 15:22] VITALS: BP 122/78; BMI 34.2
--- NOTE | 2025-01-21 15:22 | MHC.PC.OV ---
Vital Signs 01/21/25 15:22 Height 5 ft Weight 175 lb 6 oz BMI 34.2 BP 122/78 Blood Pressure Location Lt brachial Position Sitting Pulse Source Pulse Oximeter Oxygen Delivery Method Room Air Intake Visit Reasons: lipids Paper Deliverer Required: No Accompanied by: Self / Same As Patient Allergies Penicillins (PENICILLINS) Allergy (Intermediate, Verified 01/21/25 15:41) rash Medication List - Last Reconciled 01/21/25 by Malika Sheets MD acetaminophen 650 mg (2 x 325 mg) PO Q6H PRN 30 days albuterol sulfate 90 mcg/actuation 1 puff PO Q4H PRN 30 days amlodipine 2.5 mg PO DAILY 90 days aspirin 325 mg PO BID 42 days atorvastatin 80 mg PO BEDTIME 90 days celecoxib 200 mg PO BID 30 days cholecalciferol (vitamin D3) 50 mcg PO DAILY 90 days commode (bedside commode) As directed cyclobenzaprine 10 mg PO TID PRN docusate sodium 100 mg PO BID 30 days fluticasone furoate 50 mcg/actuation (Arnuity Ellipta) 1 inh inhalation DAILY 30 days fluticasone propionate 50 mcg/actuation 1 spray intranasal DAILY PRN lisinopril 40 mg PO DAILY meclizine 12.5 mg PO TID PRN 30 days oxycodone 5 mg PO Q6H PRN 7 days quetiapine 25 mg PO BEDTIME sennosides-docusate sodium 8.6-50 mg (Senna Plus) 1 tab-cap PO BEDTIME 90 days sertraline (Zoloft) 200 mg (2 x 100 mg) PO DAILY Shower Chair As directed trazodone 75 mg (1.5 x 50 mg) PO BEDTIME 30 days walker FOLDING FRONT WHEELED WALKER DURATION 99 DAYS Tobacco use date assessed: 01/21/25 Dental Screening Dental Screen Date: 01/21/25 Did you have a dental visit in the last 12 months?: No Did you have a dental problem in the last 6 months where you did not have access to dental care?: No Was dental information given to patient?: No HPI HPI Comments History of Present Illness Details This is a 59-year-old female with hypertension, pure hypercholesterolemia, moderate recurrent major depression and constipation that comes today accompanied by daughter for follow-up on her conditions. Blood pressure has been well control with lisinopril and amlodipine. Last cholesterol was elevated and this will be repeated. Depression has markedly improved with SSRIs. Constipation stable with docusate as needed. Was advised to do a high-fiber diet. Denies any chest pain or shortness on breath. [facility] Medical History Back pain Anemia Anxiety Depression Habitual snoring Sleep apnea Asthma COVID-19 Rheumatic fever HTN (hypertension) Cataract Moderate recurrent major depression Vertigo Insomnia GERD (gastroesophageal reflux disease) Constipation by delayed colonic transit Moderate asthma Pure hypercholesterolemia Essential hypertension Surgical History History of total right knee replacement Hx of left cataract extraction History of esophagogastroduodenoscopy (EGD) History of right cataract extraction S/P myomectomy History of carpal tunnel release History of arthroscopy of right knee History of tubal ligation Family History Mother Leukemia FH: mental illness Family/Other CAD (coronary artery disease) Maternal Aunt Breast cancer Social History Household Members: None Housing: Apartment Are you a primary memory care program director to a significant other at home: No Do you presently have visiting nurse or other home services: Yes Alcohol intake: former Patient Tobacco Use Status: Former Tobacco user Tobacco use type: Cigarette e-Cigarette/Vaping Use: Never Used Second Hand Smoke Exposure: No service: No Current occupational status: unemployed Cognitive needs: No Hearing needs: No Vision needs: Yes (Glasses) Female Reproductive History Menstrual Age of Menarche: 7 Questionnaire PHQ-9 Over the last 2 weeks, how often have you been bothered by any of the following problems? 1. Little interest or pleasure in doing things: several days 2. Feeling down, depressed, or hopeless: several days 3. Trouble falling or staying asleep, or sleeping too much: several days 4. Feeling tired or having little energy: several days 5. Poor appetite or overeating: several days 6. Feeling bad about yourself - or that you are a failure or have let yourself or your family down: not at all 7. Trouble concentrating on things, such as reading the newspaper or watching television: several days 8. Moving or speaking so slowly that other people could have noticed. Or the opposite - being so fidgety or restless that you have been moving around a lot more than usual: several days 9. Thoughts that you would be better off or of hurting yourself in some way: not at all Total score: 7 Depression Screening Interpretation: Positive Depression Screening Follow-up: Existing condition, In treatment, Community Mental Health Worker F/U and Follow-up Visit Requested Depression Screening Done: Yes 67797 - PHQ-9 Billing: Yes Source: Developed by Drs. Gavin Gr, Annita Luis, Chapincito Suresh and colleagues, with an educational susy from [email or web address]. Thrive Questionnaire Date Thrive assessed: 05/18/24 I am a: Patient What is your living situation today?: I have a steady place to live Within the past 12 months, did the food you bought not last and you didn't have the money to get more?: I choose not to answer this question Within the past 12 months, did you worry whether your food would run out before you got money to buy more?: I choose not to answer this question Do you have trouble paying for medicines?: No Do you have trouble getting transportation to medical appointments?: No Do you have trouble paying your heating and electricity bill?: No Do you have trouble taking care of your child, family member or friend?: I choose not to answer this question Do you have trouble with day-to-day activities such as bathing, preparing meals, shopping, managing finances, etc.?: Yes Are you currently unemployed and looking for a job?: I choose not to answer this question Are you interested in more education?: I choose not to answer this question Please select the resources that you would like help with: None Currently or been in a relationship where the following occur: I choose not to answer THRIVE Score: 0 AUDIT C Alcohol Use Questionnaire (AUDIT-C) 1. How often do you have a drink containing alcohol?: Never 3. How often do you have six or more drinks on one occasion?: Never Total Score: 0 Score Reviewed/Action Taken: No KHARI-7 AMB Questionnaire KHARI-7 Date KHARI - 7 assessed: 05/18/24 Feeling nervous, anxious, or on edge: 1 = Several days Not being able to stop or control worryin = More than half the days Worrying too much about different things: 2 = More than half the days Trouble relaxin = Several days Being so restless that it is hard to sit still: 0 = Not at all Becoming easily annoyed or irritable: 2 = More than half the days Feeling afraid as if something awful might happen: 0 = Not at all Total KHARI-7 score (0-4 normal; 5-9 mild; 10-14 moderate; 15-21 severe): 8 Source: Developed by Drs. Gavin Gr, Annita Luis, Chapincito Suresh and colleagues, with an educational susy from [employer]. KHARI-7 Assessment Billing KHARI-7 Assessment Tool: KHARI-7 Assessment 87636 Review of Systems Const All systems reviewed & are unremarkable except as noted in HPI and below Card Denies chest pain at rest, Denies chest pain with activity, Denies edema, Denies irregular heart rhythm, Denies claudication, Denies dyspnea, Denies dyspnea on exertion, Denies orthopnea, Denies paroxysmal nocturnal dyspnea and Denies slow heart rate Resp Denies cough, Denies dyspnea and Denies dyspnea on exertion Physical exam (Primary Care) Vital Signs: Last Vital Signs BP 122/78 01/21/25 15:22 Oxygen Delivery Method Room Air 01/21/25 15:22 BMI result Body Mass Index 34.2 BMI Assessment/Plan discussion: High BMI High, discussed plan: lifestyle, weight reduction, dietary and physical activity Tobacco/Smoking Status: Tobacco use Status Tobacco use date assessed 01/21/25 01/21/25 15:24 Patient Tobacco Use Status Former Tobacco user 01/21/25 15:24 Tobacco use type Cigarette 01/21/25 15:24 e-Cigarette/Vaping Use Never Used 01/21/25 15:24 PHQ-9: PHQ-9 Score PHQ-9: Total score 7 01/21/25 15:29 Depression Screening Interpretation: Positive Depression Screening Follow-up: Existing condition, In treatment, Community Mental Health Worker F/U and Follow-up Visit Requested Thrive Assessment: Date of Thrive Assessment Date Thrive assessed 05/18/24 01/21/25 15:24 Currently or been in a relationship where the following occur: I choose not to answer Resp Effort & Inspection: normal respiratory effort Auscultation: clear to auscultation bilaterally Cardio Jugular venous distension: no JVD Rate: regular rate Rhythm: regular rhythm Heart sounds: S1 normal heart sound present and S2 normal heart sound present Extrem General: Yes full ROM Coding Level of Care Code Est Pt Level 4 (75152) Complex EM visit Add On G2211 Diagnoses Moderate recurrent major depression F33.1 Essential hypertension I10 Pure hypercholesterolemia E78.00 Constipation by delayed colonic transit K59.01 Additional Codes KHARI-7 Assessment Billing - KHARI-7 Assessment Tool: KHARI-7 Assessment 34256 ([id number]) PHQ-9 - 03223 - PHQ-9 Billing: Yes ([id number]) Time Spent (min) 21 Assessment & Plan Assessment & Plan (1) Moderate recurrent major depression: Code(s): F33.1 - Major depressive disorder, recurrent, moderate Category: Medical (2) Essential hypertension: Code(s): I10 - Essential (primary) hypertension Category: Medical (3) Pure hypercholesterolemia: Code(s): E78.00 - Pure hypercholesterolemia, unspecified Category: Medical (4) Constipation by delayed colonic transit: Code(s): K59.01 - Slow transit constipation Category: Medical Plan Continue current meds. Blood pressure goal is equal or less than 130/80. Repeat lipid panel. Start a high-fiber diet. BMI goal is less than 30. Orders: Orders Comprehensive [place]. Panel Fast Today I10 - Essential (primary) hypertension Lipid Panel Today E78.5 - Hyperlipidemia, unspecified Vitamin D 25-OH Total Today E55.9 - Vitamin D deficiency, unspecified
== END 2025-01-21 15:52 | disposition home or self-care (01) ==
LOC: HO.HMCH 15:13
PROVIDERS: PCP Internal Medicine; Visit Provider Internal Medicine
DX: F33.1 Major depressive disorder, recurrent, moderate (principal); I10 Essential (primary) hypertension; E78.00 Pure hypercholesterolemia, unspecified; K59.01 Slow transit constipation

== ENCOUNTER → 2025-01-21 15:12 | Outpatient (BNVA) | payer OTHER, SELFPAY | PROVIDERS: PCP Internal Medicine; Visit Provider Internal Medicine | DX: F33.1 Major depressive disorder, recurrent, moderate (principal); I10 Essential (primary) hypertension; E78.00 Pure hypercholesterolemia, unspecified; K59.01 Slow transit constipation; Z13.31 Encounter for screening for depression | CPT/HCPCS: 96127; 99212 ==

== ENCOUNTER 2025-03-24 15:45 | Outpatient (AMB) | payer OTHER, SELFPAY ==
--- NOTE | 2025-03-24 15:49 | A.OFFVIS_ITS ---
Vital Signs 03/24/25 16:00 Height 5 ft Weight 180 lb BMI 35.2 BP 134/66 Blood Pressure Location Lt radial Position Sitting Pulse 68 Pulse Source Pulse Oximeter Pulse Oximetry (%) 97 Oxygen Delivery Method Room Air Intake Visit Reasons: Discuss Colonoscopy Intake Note: Est pt for mgmt of CIC + GERD. Discuss colo/egd. CC; Pt denies any new GI sx or concerns at this time. She confirms that she is not experiencing any abd pain and is moving her bowels OK. Antenna Machine Operator Required: Yes Antenna Machine Operator Services: Antenna Machine Operator Present Antenna Machine Operator Name: Divina [id number] + [facility] Information Interpreted: clinical only Accompanied by: Self / Same As Patient Allergies Penicillins (PENICILLINS) Allergy (Intermediate, Verified 01/21/25 15:41) rash HPI Comments Details: 56 year old female presenting to the office for discussion of colon cancer screening. Pt seen with the help of a freelance interpreter/translator. Patient is at average risk of colon cancer due to no family history of colon cancer or colon polyps in first degree relatives. Patient does not have any other gastrointestinal symptoms to include abdominal pain, nausea, vomiting, diarrhea, blood in stool, weight loss. Labs reviewed to confirm patient does not have anemia. Last colon was almost 10 years ago at [place]. 03/24/25: Here to re-establish care for screening colo. Was lost to follow up and returning after 2 years. No chronic GI sx to include abd pain, N,V,D, rectal bleeding. Of note med list reveiwed and pt noted to be on full dose ASA BID. Reports she is still taking this even though the Rx was for short term. Will get this clarified. [facility] Medical History Back pain Anemia Anxiety Depression Habitual snoring Sleep apnea Asthma COVID-19 Rheumatic fever HTN (hypertension) Cataract Moderate recurrent major depression Vertigo Insomnia GERD (gastroesophageal reflux disease) Constipation by delayed colonic transit Moderate asthma Pure hypercholesterolemia Essential hypertension Surgical History History of total right knee replacement Hx of left cataract extraction History of esophagogastroduodenoscopy (EGD) History of right cataract extraction S/P myomectomy History of carpal tunnel release History of arthroscopy of right knee History of tubal ligation Family History Mother Leukemia FH: mental illness Family/Other CAD (coronary artery disease) Maternal Aunt Breast cancer Social History Household Members: None Housing: Apartment Are you a primary aged or disabled care worker to a significant other at home: No Do you presently have visiting nurse or other home services: Yes Alcohol intake: former Patient Tobacco Use Status: Former Tobacco user Tobacco use type: Cigarette e-Cigarette/Vaping Use: Never Used Second Hand Smoke Exposure: No service: No Current occupational status: unemployed Cognitive needs: No Hearing needs: No Vision needs: Yes (Glasses) Female Reproductive History Menstrual Age of Menarche: 7 Review of Systems Const All systems reviewed & are unremarkable except as noted in HPI and below Physical Exam Exam Exam: No apparent distress Nonicteric Abdomen soft, nondistended Alert and oriented x3, normal gait Vital Signs: Last Vital Signs Pulse 68 03/24/25 16:00 BP 134/66 03/24/25 16:00 Pulse Ox 97 03/24/25 16:00 Oxygen Delivery Method Room Air 03/24/25 16:00 BMI result Body Mass Index 35.2 Assessment & Plan Assessment & Plan (1) Screening for colon cancer: Code(s): Z12.11 - Encounter for screening for malignant neoplasm of colon Category: Medical Plan: Reviewed split PEG prep instructions with the pt with the help of a freelance interpreter/translator. Handout provided as well. Pt seems to have slight difficulty grasping instructions but reassures us that her daughter will be able to help her out. PEG prep sent to pharmacy. Msg sent to RN navigatory re ASA Follow up after colo as needed. Orders: Referrals GI Procedure Notification Z12.11 - Encounter for screening for malignant neoplasm of colon Medications: New peg 3350-electrolytes 236-22.74-6.74 -5.86 gram (Golytely) as per split prep instructions, until fecal effluent is clear 240 mL PO Q10M 4,000 mL 0RF colonoscopy Coding Level of Care Code Est Pt Level 3 (34788) Diagnoses Screening for colon cancer Z12.11
[2025-03-24 16:00] VITALS: BP 134/66; PULSE 68; O2SAT 97; BMI 35.2
== END 2025-03-24 16:37 | disposition home or self-care (01) ==
LOC: HO.HGI 15:47
PROVIDERS: PCP Internal Medicine; Visit Provider Internal Medicine
DX: Z01.818 Encounter for other preprocedural examination (principal); Z12.11 Encounter for screening for malignant neoplasm of colon
CPT/HCPCS: 99213

== ENCOUNTER → 2025-03-24 15:45 | Outpatient (BNVA) | payer OTHER, SELFPAY | PROVIDERS: PCP Internal Medicine; Visit Provider Internal Medicine | DX: Z01.818 Encounter for other preprocedural examination (principal) | CPT/HCPCS: 99212 ==

== ENCOUNTER 2025-04-20 15:17 | Outpatient (AMB) | payer OTHER, SELFPAY ==
--- NOTE | 2025-04-20 15:49 | MHC.OFFVIS ---
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 No complaints. Last Pap/HPV was negative in 11/02 Last Mammogram was BI-RADS 1 in 06/05 No previous screening Colonoscopy, the patient was seen by GI is in the process of scheduling her screening colonoscopy [facility] Medical History Back pain Anemia Anxiety Depression Habitual snoring Sleep apnea Asthma COVID-19 Rheumatic fever HTN (hypertension) Cataract Moderate recurrent major depression Vertigo Insomnia GERD (gastroesophageal reflux disease) Constipation by delayed colonic transit Moderate asthma Pure hypercholesterolemia Essential hypertension Surgical History History of total right knee replacement Hx of left cataract extraction History of esophagogastroduodenoscopy (EGD) History of right cataract extraction S/P myomectomy History of carpal tunnel release History of arthroscopy of right knee History of tubal ligation Family History Mother Leukemia FH: mental illness Family/Other CAD (coronary artery disease) Maternal Aunt Breast cancer Social History Household Members: None Housing: Apartment Are you a primary care program director to a significant other at home: No Do you presently have visiting nurse or other home services: Yes Alcohol intake: former Patient Tobacco Use Status: Former Tobacco user Tobacco use type: Cigarette e-Cigarette/Vaping Use: Never Used Second Hand Smoke Exposure: No service: No Current occupational status: disabled Sexual orientation: Straight/Heterosexual Gender identity: Female Cognitive needs: No Hearing needs: No Vision needs: Yes (Glasses) Female Reproductive History Menstrual Age of Menarche: 7 control method: permanent sterilization Total pregnancies: 3 Full term: 3 Number of Living Children: 3 Date of last pap smear: 10/26/22 Date of Mammogram: 05/26/23 Review of Systems Const All systems reviewed & are unremarkable except as noted in HPI and below Card Reports as per HPI Resp Reports as per HPI GI Reports as per HPI and Reports no additional complaints Reports as per HPI Physical Exam Const General: cooperative, healthy appearing and comfortable Chest Chest palpation & inspection: normal inspection of the chest and normal palpation of entire chest wall Breast/axilla inspection: normal inspection of the breasts and normal inspection of the axillae Breast/axilla palpation: normal palpation of the breasts, normal palpation of the axillae and no axillary lymphadenopathy Resp Effort & Inspection: normal respiratory effort Auscultation: clear to auscultation bilaterally Percussion: percussion normal Cardio Palpation: normal PMI Rate: regular rate Rhythm: regular rhythm Heart sounds: no murmurs and no rubs Peripheral pulses: Peripheral pulses 2+ throughout GI Inspection: Yes normal to inspection Palpation (GI): Soft to palpation, nontender, no guarding, not rigid and No hepatosplenomegaly present Percussion: Yes normal to percussion Auscultation: normal bowel sounds Rectal Exam - Female: deferred General: Yes bladder normal to palpation External Female Exam: No lesion Speculum Exam - Vagina: normal appearance of the vagina, normal palpation, normal vaginal discharge and not erythematous Speculum Exam - Cervix: normal appearance of the cervix and normal palpation Bimanual exam- vagina & uterus: normal bimanual exam, normal palpation, uterine size normal, bladder normal to palpation, consistency normal and normal palpation Bimanual Exam- Adnexa, other: normal adnexae, no masses and no tenderness Assessment & Plan Assessment & Plan (1) Well woman exam: Code(s): Z01.419 - Encounter for gynecological examination (general) (routine) without abnormal findings Category: Medical Plan: Co testing not indicated this year. Counseled the patient about the recommended dietary allowance of 1200 mg of Calcium & 600 IU of vitamin D. Mammogram ordered. The patient was instructed to perform monthly self-breast exams and schedule annual exam in a year. All questions answered and the patient verbalized understanding. Orders: Orders MM tomosynthesis screening BI Today Z12.31 - Encounter for screening mammogram for malignant neoplasm of breast Coding Level of Care Code Est Pt Prev Care 40-64y(24858) Diagnoses Well woman exam Z01.419
[2025-04-20 15:51] VITALS: BP 116/72; BMI 35.2
== END 2025-04-20 16:09 | disposition home or self-care (01) ==
LOC: HO.HWS 15:18
PROVIDERS: PCP Internal Medicine; Visit Provider Obstetrics & Gynecology
DX: Z01.419 Encounter for gynecological examination (general) (routine) without abnormal findings (principal)
CPT/HCPCS: 99396; 99459

== ENCOUNTER → 2025-04-20 15:17 | Outpatient (BNVA) | payer OTHER, SELFPAY | PROVIDERS: PCP Internal Medicine; Visit Provider Obstetrics & Gynecology | DX: Z01.419 Encounter for gynecological examination (general) (routine) without abnormal findings (principal); Z98.51 Tubal ligation status | CPT/HCPCS: 99396 ==